=== PATIENT | male | born 1955 | race African-American/Black ===

== ENCOUNTER 2021-06-04 15:37 | Inpatient (IN) | payer MEDICAID, OTHER ==
[~2021-06-04] VITALS: Ht 177.8 cm; Wt 91.2 kg
[2021-06-04] MEDS ORDERED: IOHEXOL-350 100 ML VIAL IV ONE (15:45)
[2021-06-04] MEDS ORDERED: IV NS 0.9% 250 ML IV ONE (15:45)
[2021-06-04] MEDS ORDERED: BISA10SU11 RC (15:59)
[2021-06-04] MEDS ORDERED: ATOR40TA PO (15:59)
[2021-06-04] MEDS ORDERED: SIME80TA15 PO (15:59)
[2021-06-04] MEDS ORDERED: PANT40TA2 PO (15:59)
[2021-06-04] MEDS ORDERED: PROP60CA38 PO (15:59)
[2021-06-04] MEDS ORDERED: DIPH25CA51 PO (15:59)
[2021-06-04] MEDS ORDERED: PHEN100C12 PO (15:59)
[2021-06-04] MEDS ORDERED: KETO10DR3 EACHEYE (15:59)
[2021-06-04] MEDS ORDERED: ONDA4TAB5 PO (15:59)
[2021-06-04] MEDS ORDERED: DOCU-141 PO (15:59)
[2021-06-04] MEDS ORDERED: CHOL100062 PO (15:59)
[2021-06-04] MEDS ORDERED: ASPI-1169 PO (15:59)
[2021-06-04] MEDS ORDERED: LACT1CAP69 PO (15:59)
[2021-06-04] MEDS ORDERED: PRIM250T8 PO (15:59)
[2021-06-04] MEDS ORDERED: ACET-868 PO (15:59)
[2021-06-04 16:17] LABS: BASOPHILS % (AUTO) 0.6 % (0.0-2.0); EOSINOPHILS % (AUTO) 4.7 % (0.0-6.0); HEMATOCRIT 43 % (39-51); HEMOGLOBIN 14.4 g/dL (13.5-17.5); LYMPHOCYTES # (AUTO) 1.1 K/uL (0.8-4.8); LYMPHOCYTES % (AUTO) 17.9 % (20.0-44.0); MEAN CORPUSCULAR HGB CONC 33 g/dl (31.0-36.0); MEAN CORPUSCULAR VOLUME 90 fL (80-96); MONOCYTES # (AUTO) 0.6 K/uL (0.1-1.30); MONOCYTES % (AUTO) 9.9 % (2.0-12.0); NEUTROPHILS # (AUTO) 4.2 K/uL (1.8-8.9); NEUTROPHILS % (AUTO) 66.9 % (43.0-81.0); PLATELET COUNT (AUTO) 216 K/uL (150-450); WHITE BLOOD COUNT (AUTO) 6.2 K/uL (4.3-11.0)
[2021-06-04 16:24] LABS: CALCIUM, SERUM 8.1 mg/dL (8.5-10.1); CARBON DIOXIDE 31 mmol/L (21-32); CHLORIDE 104 mmol/L (98-107); CREATININE 0.8 mg/dL (0.6-1.3); GLUCOSE 104 mg/dL (74-106); POTASSIUM 4.2 mmol/L (3.5-5.1); SODIUM SERUM 139 mmol/L (136-145); UREA NITROGEN, BLOOD 20 mg/dL (7-18)
[2021-06-04 16:46] LABS: CHOLESTEROL 142 mg/dL (<200); HDL CHOLESTEROL 48 mg/dL (40-60); LDL 75 mg/dL (0-99); TRIGLYCERIDES 85 mg/dL (30-150)
[2021-06-04] MEDS ORDERED: SIMETHICONE 80 MG TAB.CHEW PO PRN (17:30)
[2021-06-04] MEDS ORDERED: diphenhydrAMINE HCL 25 MG CAPSULE PO PRN (17:30)
[2021-06-04] MEDS ORDERED: ACETAMINOPHEN 325 MG TABLET PO PRN ×2 (17:30)
[2021-06-04] MEDS ORDERED: Medication Not On Formulary EA (Ondansetron Hcl (Zofran) 4 MG) PO PRN (17:30)
[2021-06-04] MEDS ORDERED: MAGNESIUM HYDROXIDE 30 ML UDC PO PRN (17:30)
[2021-06-04] MEDS ORDERED: BISACODYL SUPP (10 MG) 10 MG/SUPP.RECT SUPP.RECT RC PRN (17:30)
[2021-06-04] MEDS ORDERED: MAG HYDROX/AL HYDROX/SIMETH 30 ML UDC PO PRN (17:30)
[2021-06-04] MEDS ORDERED: Z GUARD REMEDY 2 OZ OINT TP PRN (17:30)
[2021-06-04] MEDS ORDERED: ONDANSETRON HCL/PF 4 MG/2 ML VIAL IVP PRN (17:30)
[2021-06-04] MEDS ORDERED: BLOOD SUGAR DIAGNOSTIC 1 EACH STRIP IN SCH (18:00)
[2021-06-04] MEDS ORDERED: NAPHAZOLINE HCL/PHENIR MAL 15 ML BOTTLE EACHEYE PRN (18:30)
[2021-06-04 20:00] VITALS: BP 132/51
[2021-06-04] MEDS: BLOOD SUGAR DIAGNOSTIC 1 EACH STRIP IN SCH ×2 (20:11→22:55)
[2021-06-04] MEDS: ENOXAPARIN SODIUM 40 MG/0.4 ML DISP.SYRIN SQ SCH (20:12)
[2021-06-04] MEDS: PHENYTOIN EXTENDED RELEASE 100 MG CAPSULE PO SCH (22:55)
[2021-06-04] MEDS: ATORVASTATIN 40 MG TABLET PO SCH (22:55)
[2021-06-05] VITALS: BP 138/79
[2021-06-05 04:00] VITALS: BP 138/79
[2021-06-05] MEDS: IV D5/0.45 NACL 1,000 ML IV PRN ×2 (05:57→21:45)
[2021-06-05 06:59] LABS: BASOPHILS % (AUTO) 0.5 % (0.0-2.0); EOSINOPHILS % (AUTO) 4.1 % (0.0-6.0); HEMATOCRIT 44 % (39-51); LYMPHOCYTES # (AUTO) 1.3 K/uL (0.8-4.8); LYMPHOCYTES % (AUTO) 19.2 % (20.0-44.0); MEAN CORPUSCULAR HGB CONC 34 g/dl (31.0-36.0); MEAN CORPUSCULAR VOLUME 89 fL (80-96); MONOCYTES # (AUTO) 0.7 K/uL (0.1-1.30); MONOCYTES % (AUTO) 10.4 % (2.0-12.0); NEUTROPHILS # (AUTO) 4.3 K/uL (1.8-8.9); NEUTROPHILS % (AUTO) 65.8 % (43.0-81.0); PLATELET COUNT (AUTO) 199 K/uL (150-450); RED BLOOD CELL COUNT(AUTO) 4.94 MIL/uL (4.5-6.0); WHITE BLOOD COUNT (AUTO) 6.5 K/uL (4.3-11.0)
[2021-06-05 07:22] LABS: CALCIUM, SERUM 8.7 mg/dL (8.5-10.1); CREATININE 0.7 mg/dL (0.6-1.3); PHOSPHORUS 3.8 mg/dL (2.5-4.9); POTASSIUM 3.6 mmol/L (3.5-5.1)
[2021-06-05 08:00] VITALS: BP 133/77
[2021-06-05] MEDS: PANTOPRAZOLE 40 MG TABLET.DR PO SCH (08:16)
[2021-06-05] MEDS: CHOLECALCIFEROL 1,000 UNIT TABLET (VIT D3) PO SCH (08:16)
[2021-06-05] MEDS: ASPIRIN 81 MG TAB.CHEW PO SCH (08:16)
[2021-06-05] MEDS: PRIMIDONE 250 MG TABLET PO SCH ×3 (08:16→17:31)
[2021-06-05] MEDS: DOCUSATE SODIUM 100 MG CAPSULE PO SCH ×2 (08:16→17:31)
[2021-06-05] MEDS: BLOOD SUGAR DIAGNOSTIC 1 EACH STRIP IN SCH ×4 (08:17→21:45)
[2021-06-05] MEDS: PROPRANOLOL LA 60 MG CAP.SA.24H PO SCH (08:17)
[2021-06-05 12:00] VITALS: BP 135/75
[2021-06-05 16:00] VITALS: BP 131/68
[2021-06-05 20:00] VITALS: BP 144/73
[2021-06-05] MEDS: ENOXAPARIN SODIUM 40 MG/0.4 ML DISP.SYRIN SQ SCH (21:00)
[2021-06-05] MEDS: ATORVASTATIN 40 MG TABLET PO SCH (21:46)
[2021-06-05] MEDS: PHENYTOIN EXTENDED RELEASE 100 MG CAPSULE PO SCH (21:46)
[2021-06-06] VITALS: BP 123/79
[2021-06-06] MEDS: ENOXAPARIN SODIUM 40 MG/0.4 ML DISP.SYRIN SQ SCH (01:50)
[2021-06-06 04:00] VITALS: BP 137/76
[2021-06-06] MEDS: BLOOD SUGAR DIAGNOSTIC 1 EACH STRIP IN SCH ×2 (07:30→12:07)
[2021-06-06 08:00] VITALS: BP 118/67
[2021-06-06] MEDS: PANTOPRAZOLE 40 MG TABLET.DR PO SCH (08:28)
[2021-06-06] MEDS: ASPIRIN 81 MG TAB.CHEW PO SCH (08:28)
[2021-06-06] MEDS: DOCUSATE SODIUM 100 MG CAPSULE PO SCH (08:28)
[2021-06-06] MEDS: CHOLECALCIFEROL 1,000 UNIT TABLET (VIT D3) PO SCH (08:28)
[2021-06-06] MEDS: PROPRANOLOL LA 60 MG CAP.SA.24H PO SCH (08:28)
[2021-06-06] MEDS: PRIMIDONE 250 MG TABLET PO SCH (08:30)
[2021-06-06] MEDS ORDERED: CLOPIDOGREL BISULFATE 75 MG TABLET PO SCH (09:00)
[2021-06-06] MEDS ORDERED: CLOP75TA15 PO (09:49)
[2021-06-06 12:00] VITALS: BP 132/77
== END 2021-06-06 13:43 | DRG 45 ==
LOC: ER 15:39 → TELE1 17:29
PROVIDERS: ADMIT Internal Medicine; ATTEND Internal Medicine
DX: I63.9 Cerebral infarction, unspecified (principal); G93.49 Other encephalopathy; I11.0 Hypertensive heart disease with heart failure; I50.9 Heart failure, unspecified; E78.5 Hyperlipidemia, unspecified; J44.9 Chronic obstructive pulmonary disease, unspecified; Z86.73 Personal history of transient ischemic attack (TIA), and cerebral infarction without residual deficits; Z20.822 Contact with and (suspected) exposure to COVID-19; R29.706 NIHSS score 6; G40.909 Epilepsy, unspecified, not intractable, without status epilepticus; Z79.82 Long term (current) use of aspirin; Z85.71 Personal history of Hodgkin lymphoma
CPT/HCPCS: 36415; 70450-TC; 70496-TC; 70498-TC; 70551-TC; 71045-TC; 80048-TC; 80061-TC; 82962-TC; 83605-TC; 83735-TC; 84100-TC; 84484-TC; 85025-TC; 85730-TC; 87040-TC; 87081-TC; 92507-TC; 92521; 92526; 92611-TC; 93307-TC; 97112-TC; 97530-TC; G0378; J1650; J3490; J7050; Q9967; U0003

== ENCOUNTER 2022-07-01 13:56 | Inpatient (IN) | payer OTHER ==
[~2022-07-01] VITALS: Ht 182.9 cm; Wt 68.5 kg
[2022-07-01] MEDS: ACETAMINOPHEN 325 MG TABLET PO SCH
[~2022-07-01 13:56] MED LIST: ACET-868 PO; ASPI-1169 PO; ATOR40TA PO; BISA10SU11 RC; CHOL100062 PO; CLOP75TA15 PO; DIPH25CA51 PO; DOCU-141 PO; KETO10DR3 EACHEYE; LACT1CAP69 PO; ONDA4TAB5 PO; PANT40TA2 PO; PHEN100C12 PO; PRIM250T8 PO; PROP60CA38 PO; SIME80TA15 PO
[2022-07-01] MEDS ORDERED: QUET50TA PO (14:13)
[2022-07-01] MEDS ORDERED: MAG30ORA PO (14:13)
[2022-07-01] MEDS ORDERED: FLUO20CA42 PO (14:13)
[2022-07-01] MEDS ORDERED: MAGN400O6 PO (14:13)
[2022-07-01] MEDS ORDERED: ZOLP5TAB8 PO (14:13)
[2022-07-01] MEDS ORDERED: ACET-868 PO (14:13)
[2022-07-01] MEDS ORDERED: MULT-447 PO (14:13)
[2022-07-01] MEDS ORDERED: PRED10TA PO (14:13)
[2022-07-01] MEDS ORDERED: POLY15DR40 EACHEYE (14:13)
[2022-07-01] MEDS ORDERED: PROP20TA7 PO (14:13)
[2022-07-01] MEDS ORDERED: POLY17PO4 PO (14:13)
[2022-07-01] MEDS ORDERED: OLAN10TA3 PO (14:13)
[2022-07-01] MEDS ORDERED: VANCOMYCIN 1 GM in IV D5W 250 ML IV ONE (14:30)
[2022-07-01] MEDS ORDERED: AZTREONAM 2 G in IV NS 0.9% 100 ML IV ONE (14:30)
--- NOTE | 2022-07-01 14:39 | NUR ---
COVID TEST COLLECTED AND SENT
--- NOTE | 2022-07-01 14:52 | NUR ---
MOVE SHEET SUBMITTED.
--- NOTE | 2022-07-01 15:00 | NUR ---
ATTEMPTED TO INSERT TEAGUE CATHETER, NO URINE OUTPUT, BLOOD OUTPUT NOTED, WITHDREW CATHETER
[2022-07-01 15:24] LABS: BASOPHILS % (AUTO) 0.3 % (0.0-2.0); EOSINOPHILS % (AUTO) 0.3 % (0.0-6.0); HEMATOCRIT 41 % (39-51); HEMOGLOBIN 13.4 g/dL (13.5-17.5); LYMPHOCYTES # (AUTO) 0.9 K/uL (0.8-4.8); LYMPHOCYTES % (AUTO) 7.7 % (20.0-44.0); MEAN CORPUSCULAR HGB CONC 32 g/dl (31.0-36.0); MEAN CORPUSCULAR VOLUME 90 fL (80-96); NEUTROPHILS % (AUTO) 83.7 % (43.0-81.0); PLATELET COUNT (AUTO) 321 K/uL (150-450); WHITE BLOOD COUNT (AUTO) 11.9 K/uL (4.3-11.0)
[2022-07-01] MEDS ORDERED: ACETAMINOPHEN 650 MG/SUPP.RECT RC ONE ×2 (15:30→23:55)
[2022-07-01] MEDS ORDERED: IV NS 0.9% 2,000 ML IV ONE (15:30)
[2022-07-01 15:41] LABS: CALCIUM, SERUM 9.3 mg/dL (8.5-10.1); CARBON DIOXIDE 31 mmol/L (21-32); CHLORIDE 117 mmol/L (98-107); CREATININE 0.9 mg/dL (0.6-1.3); GLUCOSE 141 mg/dL (74-106); POTASSIUM 3.6 mmol/L (3.5-5.1); SODIUM SERUM 155 mmol/L (136-145); UREA NITROGEN, BLOOD 34 mg/dL (7-18)
[2022-07-01 15:53] LABS: ALANINE AMINOTRANSFERASE 104 U/L (12-78); ALBUMIN 2.4 g/dL (3.4-5.0); ALKALINE PHOSPHATASE 143 U/L (46-116); ASPARTATE AMINOTRANSFERASE 104 U/L (15-37); BILIRUBIN,TOTAL 1.3 mg/dL (0.2-1.0); TOTAL PROTEIN, SERUM 8.1 g/dL (6.4-8.2)
[2022-07-01] MEDS ORDERED: Z GUARD REMEDY 4 OZ OINT TP PRN (17:30)
[2022-07-01] MEDS ORDERED: ACETAMINOPHEN 325 MG TABLET PO PRN ×2 (17:30)
[2022-07-01] MEDS ORDERED: MAG HYDROX/AL HYDROX/SIMETH 30 ML UDC PO PRN ×2 (17:30)
[2022-07-01] MEDS ORDERED: BISACODYL SUPP (10 MG) 10 MG/SUPP.RECT SUPP.RECT RC PRN (17:30)
[2022-07-01] MEDS ORDERED: ONDANSETRON HCL/PF 4 MG/2 ML VIAL IVP PRN (17:30)
[2022-07-01] MEDS ORDERED: CEFEPIME 1 GM in IV D5W 50 ML IV SCH (17:30)
[2022-07-01] MEDS ORDERED: ZOLPIDEM TARTRATE 5 MG TABLET PO PRN (17:30)
[2022-07-01] MEDS ORDERED: MAGNESIUM HYDROXIDE 30 ML UDC PO PRN ×2 (17:30)
[2022-07-01] MEDS ORDERED: IV NS 0.9% 500 ML IV ONE (19:00)
[2022-07-01] MEDS ORDERED: LIDOCAINE 2% JEL UROJET 10 ML MM ONE (19:18)
--- NOTE | 2022-07-01 19:30 | NUR ---
PATIENT PLACED ON 3.5 LPM O2 VIA NASAL CANNULA UPON ADMISSION AND KEPT AT SAME RATE FOR DURATION OF SHIFT
--- NOTE | 2022-07-01 20:20 | NUR ---
MRSA SWAB COLLECTED AND BELONGINGS LIST DONE
[2022-07-01] MEDS: POLYVINYL ALCOHOL 15 ML BOTTLE EACHEYE SCH (21:00)
[2022-07-01] MEDS ORDERED: ZOLPIDEM TARTRATE 5 MG TABLET PO SCH (22:00)
[2022-07-01] MEDS: PHENYTOIN EXTENDED RELEASE 100 MG CAPSULE PO SCH (22:00)
[2022-07-01] MEDS: ATORVASTATIN 40 MG TABLET PO SCH (22:00)
[2022-07-01] MEDS: IV 1/2NS 1000 ML 1,000 ML IV PRN (22:15)
[2022-07-02] MEDS ORDERED: PHENYTOIN EXTENDED RELEASE 100 MG CAPSULE PO ONE (00:06)
[2022-07-02] MEDS ORDERED: ATORVASTATIN 40 MG TABLET ONE (00:06)
[2022-07-02] MEDS ORDERED: POLYVINYL ALCOHOL 15 ML BOTTLE ONE (00:06)
[2022-07-02] MEDS ORDERED: VANCOMYCIN 500 MG VIAL ONE (03:41)
[2022-07-02] MEDS ORDERED: VANCOMYCIN 1 GM VIAL ONE (03:42)
[2022-07-02] MEDS: VANCOMYCIN 1.25 GM in IV D5W 250 ML IV SCH ×2 (03:51→14:53)
[2022-07-02 03:53] LABS: BASOPHILS % (AUTO) 0.3 % (0.0-2.0); EOSINOPHILS % (AUTO) 1.4 % (0.0-6.0); HEMATOCRIT 39 % (39-51); HEMOGLOBIN 12.6 g/dL (13.5-17.5); LYMPHOCYTES # (AUTO) 0.8 K/uL (0.8-4.8); LYMPHOCYTES % (AUTO) 8.1 % (20.0-44.0); MEAN CORPUSCULAR HGB CONC 32 g/dl (31.0-36.0); MEAN CORPUSCULAR VOLUME 91 fL (80-96); MONOCYTES # (AUTO) 0.8 K/uL (0.1-1.30); MONOCYTES % (AUTO) 8.7 % (2.0-12.0); NEUTROPHILS # (AUTO) 7.9 K/uL (1.8-8.9); NEUTROPHILS % (AUTO) 81.5 % (43.0-81.0); PLATELET COUNT (AUTO) 250 K/uL (150-450); WHITE BLOOD COUNT (AUTO) 9.7 K/uL (4.3-11.0)
[2022-07-02 04:10] LABS: CALCIUM, SERUM 8.2 mg/dL (8.5-10.1); CREATININE 0.7 mg/dL (0.6-1.3); MAGNESIUM 2.3 mg/dL (1.8-2.4); PHOSPHORUS 2.5 mg/dL (2.5-4.9); POTASSIUM 3.3 mmol/L (3.5-5.1)
[2022-07-02] MEDS ORDERED: PANTOPRAZOLE 40 MG TABLET.DR PO ONE (07:36)
[2022-07-02] MEDS: PANTOPRAZOLE 40 MG TABLET.DR PO SCH (08:05)
--- NOTE | 2022-07-02 08:05 | NUR ---
GOT BED 315-2
--- NOTE | 2022-07-02 08:28 | NUR ---
report given to Linda MACHUCA to continue care.
[2022-07-02] MEDS: QUETIAPINE FUMARATE 25 MG TABLET PO SCH ×2 (09:00→17:00)
[2022-07-02] MEDS: FLUOXETINE HCL 20 MG CAPSULE PO SCH (09:00)
[2022-07-02] MEDS: MULTIVIT W/MINERALS 1 TAB TABLET PO SCH (09:00)
[2022-07-02] MEDS: CHOLECALCIFEROL 1,000 UNIT TABLET (VIT D3) PO SCH (09:00)
[2022-07-02] MEDS: POLYVINYL ALCOHOL 15 ML BOTTLE EACHEYE SCH ×4 (09:00→21:11)
[2022-07-02] MEDS: DOCUSATE SODIUM 100 MG CAPSULE PO SCH ×2 (09:00→17:00)
[2022-07-02] MEDS: PROPRANOLOL HCL 10 MG TABLET PO SCH ×2 (09:00→17:00)
[2022-07-02] MEDS: POLYETHYLENE GLYCOL 3350 17 GM POWD.PACK PO SCH (09:00)
[2022-07-02] MEDS: PRIMIDONE 250 MG TABLET PO SCH ×3 (09:00→17:00)
[2022-07-02] MEDS: ASPIRIN 81 MG TAB.CHEW PO SCH (09:00)
[2022-07-02] MEDS: OLANZAPINE 10 MG TABLET PO SCH ×2 (09:00→17:00)
[2022-07-02] MEDS: LACTOBACILLUS RHAMNOSUS GG 1 EACH CAP.SPRINK PO SCH (09:00)
[2022-07-02 09:30] VITALS: BP 120/69
[2022-07-02 09:45] VITALS: BP 128/69
--- NOTE | 2022-07-02 09:45 | NUR ---
PROCESS STRIPPER OPENING NOTES RECEIVED PATIENT ENDORSED BY SVEN PIRES VIA GABRIEL. PATIENT IS AWAKE AND A/O X1-2, NONVERBAL. ABLE TO FOLLOW COMMANDS. ON O2 AT 2LPM VIA NASAL CANNULA TOLERATING WELL. NO SOB NOTED. ON TELE MONITOR CURRENTLY READING SINUS TACHYCARDIA AT 118BPM. WITH IV ACCESS AT RIGHT AC G18, INTACT AND PATENT. MOUTH CARE DONE. WITH SKIN ISSUES AND PHOTOS PLACED ON CHART. SAFETY MEASURES IN PLACED. CALL LIGHT WITHIN REACH. BED ON LOWEST LOCKED POSITION, SIDE RAILS UP X2. WILL CONTINUE TO MONITOR.
[2022-07-02] MEDS: IV 1/2NS 1000 ML 1,000 ML IV PRN ×2 (09:52→23:07)
[2022-07-02] MEDS: ENOXAPARIN SODIUM 40 MG/0.4 ML DISP.SYRIN SQ SCH (11:34)
[2022-07-02] MEDS: POTASSIUM CL. PREMIX PERIPHER. 50 ML IV SCH ×2 (11:34→16:09)
[2022-07-02 12:00] VITALS: BP 148/87
[2022-07-02] MEDS: IPRATROPIUM NEB FS 0.5 MG/2.5 ML AMPUL.NEB NEB SCH ×4 (12:15→23:14)
[2022-07-02] MEDS: ACETAMINOPHEN 325 MG TABLET PO SCH ×2 (13:00→21:00)
--- NOTE | 2022-07-02 13:00 | NUR ---
RN NOTE MOUTH CARE DONE TO IMPROVE PATIENT'S APPETITE. WILL DO BEDSIDE NURSING SWALLOW EVAL.
--- NOTE | 2022-07-02 13:00 | NUR ---
RN NOTE TRIED BEDSIDE NURSING SWALLOW EVAL BY TRYING TO GIVE PO MEDICATIONS WITH APPLE SAUCE BUT PATIENT IS UNABLE TO SWALLOW.
[2022-07-02] MEDS: CEFEPIME 2 GM in IV D5W 100 ML IV SCH ×2 (13:32→21:09)
[2022-07-02 16:00] VITALS: BP 174/84
--- NOTE | 2022-07-02 18:43 | NUR ---
PHONOGRAPH MECHANIC CLOSING NOTES PATIENT ON BED RESTING AND A/O X1-2, NONVERBAL. ABLE TO FOLLOW COMMANDS. ON O2 AT 2LPM VIA NASAL CANNULA TOLERATING WELL. NO SOB NOTED. ON TELE MONITOR CURRENTLY READING SINUS TACHYCARDIA AT 123BPM. WITH IV ACCESS AT RIGHT AC G18, INTACT AND PATENT. DUE MEDS GIVEN. PATIENT IS URINATING. CHUCKS ALL WET FROM URINE. FOR GENITO-URINARY CONSULT BY DR. MENDIOLA. TEAGUE CATHETER AND URINARY TRAY IN THE NURSE'S STATION IN CASE TEAGUE CATHETER INSERTION IS NEEDED. SAFETY MEASURES IN PLACED. CALL LIGHT WITHIN REACH. BED ON LOWEST LOCKED POSITION, SIDE RAILS UP X2. WILL ENDORSE TO NEXT SHIFT FOR JUNE.
--- NOTE | 2022-07-02 19:15 | NUR ---
RN OPENING NOTE RECEIVED PT IN BED AWAKE, NON-VERBAL BUT DOES MAKE NOISES. NO SIGNS OF RESPIRATORY DISTRESS OR SOB NOTED. ON 4L NC SATURATING WELL. TELE MONITOR READING ST 120. PT IS CURRENTLY NPO, AWAITING A SWALLOW EVAL. DOCTOR YAMILKA NOTIFIED TO SEE IF HE WANTED TO CHANGE ANY OF HIS SCHEDULED MED ROUTES FOR TONIGHT. WAITING FOR RESPONSE. IV IN RAC 18G INFUSING 1/2NS AT 125ML/HR. SAFETY CHECKS IN PLACE: BED LOCKED, BED IN LOWEST POSITION, CALL LIGHT WITHIN REACH, SIDE RAILS UP X2. WILL CONT PLAN OF CARE.
--- NOTE | 2022-07-02 19:30 | NUR ---
RN NOTE UROLOGY CONSULT CAME TO SEE PT. MARLENA HUNG INSERTED A TEAGUE CATH. COLLECTED URINE SAMPLE AND NOTIFIED LAB TO COME AND PICK IT UP.
[2022-07-02 20:00] VITALS: BP 103/62
--- NOTE | 2022-07-02 21:38 | NUR ---
RN NOTE DR PRATHER NOTIFIED OF SCHEDULED MEDS BEING PO WHEN PT IS NPO UNTIL SWALLOW EVAL IS DONE. ASKED DOC IF TYLENOL CAN BE CONVERTED TO SUPPOSITORY SINCE PTS TEMP IS 99.2. WAITING FOR RESPONSE. WILL CONT PLAN OF CARE.
[2022-07-02] MEDS ORDERED: phenytoin SODIUM IV 500 MG in IV NS 0.9% 50 ML IV ONE (22:00)
[2022-07-02] MEDS: ATORVASTATIN 40 MG TABLET PO SCH (22:00)
[2022-07-02] MEDS: PHENYTOIN EXTENDED RELEASE 100 MG CAPSULE PO SCH (22:00)
[2022-07-02] MEDS: ACETAMINOPHEN 650 MG/SUPP.RECT RC PRN (22:24)
[2022-07-02] MEDS ORDERED: phenytoin SODIUM IV 250 MG/5 ML VIAL IV ONE (22:37)
--- NOTE | 2022-07-02 23:16 | NUR ---
RN NOTE PT SKIN VERY WARM, COOLING MEASURES IN PLACE. COOL WASHCLOTHS ON HEAD, ARMS, AND LEGS. TYLENOL SUPPOSITORY GIVEN PER DR PRATHER.
[2022-07-02 23:58] VITALS: BP 94/59
[2022-07-03] VITALS: BP 94/59
[2022-07-03 00:33] LABS: BILIRUBIN,URINE SMALL (NEGATIVE); COLOR,URINE YELLOW (YELLOW); LEUKOCYTE ESTERASE ,URINE NEGATIVE (NEGATIVE); NITRITE, URINE NEGATIVE (NEGATIVE); PH,URINE 5.5 (5.0-8.0); PROTEIN,URINE TRACE mg/dl (NEGATIVE); UGLUCOSE NEGATIVE (NEGATIVE); UROBILINOGEN,URINE 0.2 EU/dL (0.2)
[2022-07-03 01:01] LABS: BACTERIA,URINE Many /HPF (None Seen); SQUAMOUS EPITHELIAL CELL,UR Rare /HPF (None Seen); WBC,URINE 0-2 /HPF (0-3)
[2022-07-03] MEDS: VANCOMYCIN 1.25 GM in IV D5W 250 ML IV SCH ×2 (02:55→16:57)
[2022-07-03 04:00] VITALS: BP 122/79
[2022-07-03] MEDS: IPRATROPIUM NEB FS 0.5 MG/2.5 ML AMPUL.NEB NEB SCH ×6 (04:12→23:24)
[2022-07-03] MEDS: CEFEPIME 2 GM in IV D5W 100 ML IV SCH ×3 (04:48→21:11)
--- NOTE | 2022-07-03 06:35 | NUR ---
RN CLOSING NOTE PT IN BED AWAKE, NONVERBAL. EASILY WOKEN UP TO NAME AND LIGHT TOUCH. NO SIGNS OF RESPIRATORY DISTRESS OR SOB NOTED ON 4L NC TOLERATING WELL. TELE READING ST AT 116 WITH PVC. PT KEPT NPO ALL SHIFT, SWALLOW EVAL ORDERED FOR THE MORNING SHIFT. RAC 18G INTACT AND INFUSING NS @125ML/HR. WOUND CARE CONSULT FOR THE MORNING. SAFETY CHECKS IN PLACE: BED LOCKED, BED IN LOWEST POSITION, SIDE RIALS X2, CALL LIGHT WITHIN REACH. WILL ENDORSE TO DAY SHIFT NURSE FOR JUNE.
[2022-07-03 06:40] LABS: BASOPHILS % (AUTO) 0.3 % (0.0-2.0); EOSINOPHILS % (AUTO) 4.1 % (0.0-6.0); HEMATOCRIT 36 % (39-51); HEMOGLOBIN 11.6 g/dL (13.5-17.5); LYMPHOCYTES # (AUTO) 0.6 K/uL (0.8-4.8); LYMPHOCYTES % (AUTO) 7.2 % (20.0-44.0); MEAN CORPUSCULAR HGB CONC 33 g/dl (31.0-36.0); MEAN CORPUSCULAR VOLUME 90 fL (80-96); MONOCYTES # (AUTO) 0.7 K/uL (0.1-1.30); MONOCYTES % (AUTO) 8.4 % (2.0-12.0); PLATELET COUNT (AUTO) 238 K/uL (150-450); RED BLOOD CELL COUNT(AUTO) 3.94 MIL/uL (4.5-6.0); WHITE BLOOD COUNT (AUTO) 8.8 K/uL (4.3-11.0)
[2022-07-03 06:57] LABS: CALCIUM, SERUM 8.3 mg/dL (8.5-10.1); CREATININE 0.7 mg/dL (0.6-1.3); POTASSIUM 2.9 mmol/L (3.5-5.1)
[2022-07-03] MEDS: PANTOPRAZOLE 40 MG TABLET.DR PO SCH (07:30)
[2022-07-03 08:00] VITALS: BP 129/76
[2022-07-03] MEDS: PRIMIDONE 250 MG TABLET PO SCH ×3 (09:00→17:18)
[2022-07-03] MEDS: CHOLECALCIFEROL 1,000 UNIT TABLET (VIT D3) PO SCH (09:00)
[2022-07-03] MEDS: PROPRANOLOL HCL 10 MG TABLET PO SCH ×2 (09:00→17:00)
[2022-07-03] MEDS: OLANZAPINE 10 MG TABLET PO SCH ×2 (09:00→17:00)
[2022-07-03] MEDS: FLUOXETINE HCL 20 MG CAPSULE PO SCH (09:00)
[2022-07-03] MEDS: QUETIAPINE FUMARATE 25 MG TABLET PO SCH ×2 (09:00→17:00)
[2022-07-03] MEDS: POLYETHYLENE GLYCOL 3350 17 GM POWD.PACK PO SCH (09:00)
[2022-07-03] MEDS: ASPIRIN 81 MG TAB.CHEW PO SCH (09:00)
[2022-07-03] MEDS: MULTIVIT W/MINERALS 1 TAB TABLET PO SCH (09:00)
[2022-07-03] MEDS: LACTOBACILLUS RHAMNOSUS GG 1 EACH CAP.SPRINK PO SCH (09:00)
[2022-07-03] MEDS: DOCUSATE SODIUM 100 MG CAPSULE PO SCH ×2 (09:00→17:00)
--- NOTE | 2022-07-03 09:00 | NUR ---
RN NOTE PATIENT IS NPO. ALL PO MEDS ARE HELD.
--- NOTE | 2022-07-03 09:29 | NUR ---
WOUND CARE CONSULT: PT PRESENTS WITH SACRAL DEEP TISSUE INJURY WHICH IS INTACT WITH SURROUNDING SCARRING, WELL LEFT LATERAL FOOT INTACT DEEP TISSUE INJURY/BLISTER, PRESENT ON ADMISSION. RECOMMEND DPM CONSULT. CALLED TO DR KIRK. RECOMMENDATIONS MADE FOR SKIN PROTECTION. DISCUSSED WITH NURSING STAFF. HO PINA NOTED. IN AGREEMENT WITH [facility].
[2022-07-03] MEDS: ENOXAPARIN SODIUM 40 MG/0.4 ML DISP.SYRIN SQ SCH (09:52)
[2022-07-03] MEDS: POLYVINYL ALCOHOL 15 ML BOTTLE EACHEYE SCH ×4 (09:52→21:12)
[2022-07-03] MEDS: IV 1/2NS 1000 ML 1,000 ML IV PRN (11:47)
[2022-07-03] MEDS: POTASSIUM CL. PREMIX PERIPHER. 50 ML IV SCH ×7 (11:47→21:54)
[2022-07-03] MEDS: ACETAMINOPHEN 325 MG TABLET PO SCH ×2 (13:00→21:00)
[2022-07-03 16:00] VITALS: BP 131/80
--- NOTE | 2022-07-03 19:00 | NUR ---
RN CLOSING NOTE LEFT PATIENT RESTING IN BED A/Ox4, ABLE TO MAKE NEEDS KNOWN. ON ROOM AIR, NO RESPIRATORY DISTRESS OR SOB OBSERVED. IV ACCESS TO RIGHT FA 18G INTACT AND PATENT. NO C/O OF PAIN OR DISCOMFORT AT THIS TIME. ALL SCHEDULED MEDICATIONS HELD DUE TO NPO STATUS. SAFETY MEASURES IN PLACE: BED LOCKED AND IN LOW POSITION, SIDE RAILS UP x2, CALL LIGHT WITHIN REACH, HEAD OF THE BED ELEVATED 40 DEGREE ORDERED.
--- NOTE | 2022-07-03 19:00 | NUR ---
RN CLOSING NOTE PT IN BED ASLEEP, NONVERBAL. EASILY WOKEN UP TO NAME AND LIGHT TOUCH. NO SIGNS OF RESPIRATORY DISTRESS OR SOB NOTED ON 4L NC TOLERATING WELL. TELE READING ST AT 114 WITH PVC. PT KEPT NPO ALL SHIFT, FAILED SWALLOW EVAL AND DR RYAN WILL TALL TO THE FAMILY REGARDING THE GTUBE. RAC 18G INFILTRATED AND WAS REMOVED AND 2 NEW IV SITE INITIATED TODAY AROUND 1500 LEFT UPPER ARM 20 G AND LEFT RIGHT HAND 22 G IV SITE FLUSHING AND INTACT INFUSING NS @125ML/HR. SAFETY CHECKS IN PLACE: BED LOCKED, BED IN LOWEST POSITION, SIDE RIALS X2, CALL LIGHT WITHIN REACH. WILL ENDORSE TO STONE DECORATOR NURSE FOR JUNE.
--- NOTE | 2022-07-03 19:45 | NUR ---
PROJECT MANAGEMENT PROFESSOR NOTES RECEIVED LAYING ON BED,ON LEFT LATERAL POSITION,WITH ON GOING BREATHING TREATMENT,POTASSIUM IV INFUSING WELL ON LEFT UPPER ARM SALINE LOCK.TEAGUE CATH IN PLACE DRAINING TEA COLORED URINE.RIGHT SIDED WEAKNESS NOTED,RESIDUAL FROM CVA.NPO STATUS, POSSIBLE GT PLACEMENT,WILL CONTINUE TO MONITOR STATUS.
[2022-07-03 20:00] VITALS: BP 120/74
[2022-07-03] MEDS: ACETAMINOPHEN 650 MG/SUPP.RECT RC PRN (21:14)
--- NOTE | 2022-07-03 21:30 | NUR ---
MOVIE SHOT CAMERAMAN NOTES POTASSIUM 60- MEQ/300L/ 6 BAG COMPLETED,WITH NEW BY SIMONA FOR ANOTHER 150ML/30 MEQ TO BE GIVEN,VERIFIED ORDER WITH HOSPITALIST KIANA DIAZ AND HE SAID OKAY TO GIVE, NOTED AND CARRIED OUT.
[2022-07-03] MEDS: ATORVASTATIN 40 MG TABLET PO SCH (22:00)
[2022-07-03] MEDS: PHENYTOIN EXTENDED RELEASE 100 MG CAPSULE PO SCH (22:00)
[2022-07-04] VITALS: BP 119/73
[2022-07-04] MEDS ORDERED: POTASSIUM CL. PREMIX PERIPHER. 50 ML ONE ×2 (00:01→01:35)
[2022-07-04] MEDS: POTASSIUM CL. PREMIX PERIPHER. 50 ML IV SCH ×2 (00:05→01:37)
[2022-07-04] MEDS: VANCOMYCIN 1.25 GM in IV D5W 250 ML IV SCH ×2 (03:05→14:07)
[2022-07-04] MEDS: IPRATROPIUM NEB FS 0.5 MG/2.5 ML AMPUL.NEB NEB SCH ×6 (04:20→23:37)
[2022-07-04] MEDS: CEFEPIME 2 GM in IV D5W 100 ML IV SCH (05:07)
--- NOTE | 2022-07-04 06:38 | NUR ---
DIRECTOR BUSINESS INTELLIGENCE NOTES ST-123 ON TELE MONITOR.NO SIGNIFICANT CHANGE IN STATUS.ALL DUE MEDS ADMINISTERED,REPOSITIONED PER PROTOCOL,KEPT NPO ORDERED.IN NO ACUTE DISTRESS.
--- NOTE | 2022-07-04 07:05 | NUR ---
CHIEF NURSE ANESTHETIST OPENING NOTES RECEIVED PATIENT SLEEPING IN BED, 4L VIA NC, NO S/S OF RESPIRATORY DISTRESS. A/Ox2, OPEN EYES NON-VERBAL. PAIN OR DISCOMFORT NOTED. IV ACCESS FÁTIMA #20 G RUNNING 1/2 NS @125 ML/HR. INTACT AND PATENT. INCONTINENT, HAS FC, DRAINING TEA COLORED URINE. BEDBOUND. SKIN ISSUES L LATERAL FOOT BLISTER AND SACRAL DTI. PATIENT CURRENTLY NPO, WILL CONTINUE TO MONITOR FOR ASPIRATION RISKS. SAFETY MEASURES IN PLACE: BED LOCKED AND IN LOWEST POSITION, SIDE RAILS UP x2, CALL LIGHT WITHIN REACH, HOB ELEVATED. WILL CONTINUE TO MONITOR. Addendum: 07/04/22 at 1306 by SABA SPIVEY RN ADDENDUM: 10/15 NS @75 ML/HR NOT 125 ML/HR
[2022-07-04] MEDS: PANTOPRAZOLE 40 MG TABLET.DR PO SCH (07:30)
[2022-07-04 08:01] LABS: BASOPHILS % (AUTO) 0.2 % (0.0-2.0); EOSINOPHILS % (AUTO) 3.6 % (0.0-6.0); HEMATOCRIT 37 % (39-51); HEMOGLOBIN 12.2 g/dL (13.5-17.5); LYMPHOCYTES # (AUTO) 0.6 K/uL (0.8-4.8); LYMPHOCYTES % (AUTO) 6.7 % (20.0-44.0); MEAN CORPUSCULAR HGB CONC 33 g/dl (31.0-36.0); MEAN CORPUSCULAR VOLUME 90 fL (80-96); MONOCYTES # (AUTO) 0.7 K/uL (0.1-1.30); MONOCYTES % (AUTO) 8.8 % (2.0-12.0); NEUTROPHILS # (AUTO) 6.7 K/uL (1.8-8.9); NEUTROPHILS % (AUTO) 80.7 % (43.0-81.0); PLATELET COUNT (AUTO) 255 K/uL (150-450); RED BLOOD CELL COUNT(AUTO) 4.14 MIL/uL (4.5-6.0); WHITE BLOOD COUNT (AUTO) 8.3 K/uL (4.3-11.0)
[2022-07-04 08:06] LABS: CALCIUM, SERUM 8.3 mg/dL (8.5-10.1); CREATININE 0.7 mg/dL (0.6-1.3); POTASSIUM 3.5 mmol/L (3.5-5.1)
[2022-07-04] MEDS: POLYETHYLENE GLYCOL 3350 17 GM POWD.PACK PO SCH (09:00)
[2022-07-04] MEDS: CHOLECALCIFEROL 1,000 UNIT TABLET (VIT D3) PO SCH (09:00)
[2022-07-04] MEDS: FLUOXETINE HCL 20 MG CAPSULE PO SCH (09:00)
[2022-07-04] MEDS: MULTIVIT W/MINERALS 1 TAB TABLET PO SCH (09:00)
[2022-07-04] MEDS: LACTOBACILLUS RHAMNOSUS GG 1 EACH CAP.SPRINK PO SCH (09:00)
[2022-07-04] MEDS: QUETIAPINE FUMARATE 25 MG TABLET PO SCH ×2 (09:00→17:00)
[2022-07-04] MEDS: ASPIRIN 81 MG TAB.CHEW PO SCH (09:00)
[2022-07-04] MEDS: DOCUSATE SODIUM 100 MG CAPSULE PO SCH ×2 (09:00→17:00)
[2022-07-04] MEDS: ENOXAPARIN SODIUM 40 MG/0.4 ML DISP.SYRIN SQ SCH (09:00)
[2022-07-04] MEDS: PROPRANOLOL HCL 10 MG TABLET PO SCH ×2 (09:00→17:00)
[2022-07-04] MEDS: OLANZAPINE 10 MG TABLET PO SCH ×2 (09:00→17:00)
[2022-07-04] MEDS: PRIMIDONE 250 MG TABLET PO SCH ×3 (09:00→17:00)
[2022-07-04] MEDS: POLYVINYL ALCOHOL 15 ML BOTTLE EACHEYE SCH ×4 (09:55→20:47)
[2022-07-04 11:31] VITALS: BP 117/50
[2022-07-04] MEDS: ACETAMINOPHEN 325 MG TABLET PO SCH ×2 (13:00→20:46)
[2022-07-04] MEDS: IV 1/2NS 1000 ML 1,000 ML IV PRN (13:04)
[2022-07-04] MEDS ORDERED: DEXAMETHASONE SOD PHOSPHATE 10 MG/ML VIAL ONE (19:10)
[2022-07-04] MEDS ORDERED: CLINDAMYCIN 900 MG/6 ML VIAL ONE (19:10)
--- NOTE | 2022-07-04 19:28 | NUR ---
PILLOWCASE SEWER OPENING NOTES PATIENT SLEEPING IN BED, STABLE ON 4L VIA NC, NO S/S OF RESPIRATORY DISTRESS. A/Ox2, OPEN EYES NON-VERBAL. PAIN OR DISCOMFORT NOTED. IV ACCESS FÁTIMA #20 G RUNNING 1/2 NS @75 ML/HR. INTACT AND PATENT. INCONTINENT, HAS FC, DRAINING TEA COLORED URINE 1500 OUTPUT. BEDBOUND. SKIN ISSUES L LATERAL FOOT BLISTER AND SACRAL DTI. PATIENT CURRENTLY NPO, WILL CONTINUE TO MONITOR FOR ASPIRATION RISKS. SAFETY MEASURES MAINTAINED: BED LOCKED AND IN LOWEST POSITION, SIDE RAILS UP x2, CALL LIGHT WITHIN REACH, HOB ELEVATED. WILL ENDORSE TO NEXT SHIFT ANY JUNE. Addendum: 07/04/22 at 1929 by SABA SPIVEY RN CLOSING NOTE*
[2022-07-04 20:00] VITALS: BP 132/84
[2022-07-04] MEDS: CEFEPIME 1 GM in IV D5W 50 ML IV SCH (20:51)
[2022-07-04] MEDS: PHENYTOIN EXTENDED RELEASE 100 MG CAPSULE PO SCH (21:31)
[2022-07-04] MEDS: ATORVASTATIN 40 MG TABLET PO SCH (21:32)
[2022-07-05] VITALS (7 sets, daily range): BP systolic 109–145; BP diastolic 66–78
[2022-07-05] MEDS: IPRATROPIUM NEB FS 0.5 MG/2.5 ML AMPUL.NEB NEB SCH ×6 (03:30→23:44)
[2022-07-05] MEDS: VANCOMYCIN 1.25 GM in IV D5W 250 ML IV SCH ×2 (04:16→14:57)
--- NOTE | 2022-07-05 06:39 | NUR ---
PLATE WORKER CLOSING NOTES PATIENT SLEEPING IN BED, STABLE ON 2L VIA NC, NO S/S OF RESPIRATORY DISTRESS. A/Ox1, OPEN EYES NON-VERBAL. PAIN OR DISCOMFORT NOTED. IV ACCESS FÁTIMA #20 G RUNNING 1/2 NS @75 ML/HR. INTACT AND PATENT. INCONTINENT, HAS FC, DRAINING TEA COLORED URINE 500 OUTPUT. BEDBOUND. PATIENT CURRENTLY NPO. SAFETY MEASURES MAINTAINED: BED LOCKED AND IN LOWEST POSITION, SIDE RAILS UP x2, CALL LIGHT WITHIN REACH, HOB ELEVATED.
[2022-07-05 07:16] LABS: BASOPHILS % (AUTO) 0.4 % (0.0-2.0); EOSINOPHILS % (AUTO) 5.7 % (0.0-6.0); HEMATOCRIT 33 % (39-51); LYMPHOCYTES # (AUTO) 0.8 K/uL (0.8-4.8); LYMPHOCYTES % (AUTO) 9.9 % (20.0-44.0); MEAN CORPUSCULAR HGB CONC 33 g/dl (31.0-36.0); MEAN CORPUSCULAR VOLUME 89 fL (80-96); MONOCYTES # (AUTO) 0.7 K/uL (0.1-1.30); MONOCYTES % (AUTO) 8.6 % (2.0-12.0); NEUTROPHILS # (AUTO) 5.9 K/uL (1.8-8.9); NEUTROPHILS % (AUTO) 75.4 % (43.0-81.0); PLATELET COUNT (AUTO) 277 K/uL (150-450); RED BLOOD CELL COUNT(AUTO) 3.71 MIL/uL (4.5-6.0); WHITE BLOOD COUNT (AUTO) 7.8 K/uL (4.3-11.0)
[2022-07-05] MEDS: PANTOPRAZOLE 40 MG TABLET.DR PO SCH (07:30)
--- NOTE | 2022-07-05 07:30 | NUR ---
VACUUM TECHNICIAN OPENING NOTES RECEIVED PATIENT ON BED AWAKE, NONVERBAL AND A/O X1-2. ON O2 AT 2LPM VIA NASAL CANNULA TOLERATING WELL. NO SOB NOTED. NOT IN DISTRESS. WITH IV ACCESS AT THE LEFT UPPER ARM G20 WITH 1/2NS AT 75ML/HR INFUSING WELL. ON TELE MONITOR CURRENTLY READING SINUS TACHYCARDIA AT 110BPM. ON NPO FOR PATIENT FAILED SWALLOW EVAL AND AWAITING FOR PEG TUBE PLACEMENT. SAFETY MEASURES IN PLACED. CALL LIGHT WITHIN REACH. BED ON LOWEST LOCKED POSITION, SIDE RAILS UP X2. WILL CONTINUE TO MONITOR.
[2022-07-05 07:45] LABS: CALCIUM, SERUM 8.3 mg/dL (8.5-10.1); CREATININE 0.6 mg/dL (0.6-1.3); POTASSIUM 3.2 mmol/L (3.5-5.1)
[2022-07-05] MEDS: MULTIVIT W/MINERALS 1 TAB TABLET PO SCH (09:00)
[2022-07-05] MEDS: LACTOBACILLUS RHAMNOSUS GG 1 EACH CAP.SPRINK PO SCH (09:00)
[2022-07-05] MEDS: CHOLECALCIFEROL 1,000 UNIT TABLET (VIT D3) PO SCH (09:00)
[2022-07-05] MEDS: OLANZAPINE 10 MG TABLET PO SCH ×2 (09:00→17:00)
[2022-07-05] MEDS: ASPIRIN 81 MG TAB.CHEW PO SCH (09:00)
[2022-07-05] MEDS: PROPRANOLOL HCL 10 MG TABLET PO SCH ×2 (09:00→17:00)
[2022-07-05] MEDS: PRIMIDONE 250 MG TABLET PO SCH ×3 (09:00→17:00)
[2022-07-05] MEDS: POLYETHYLENE GLYCOL 3350 17 GM POWD.PACK PO SCH (09:00)
[2022-07-05] MEDS: DOCUSATE SODIUM 100 MG CAPSULE PO SCH ×2 (09:00→17:00)
[2022-07-05] MEDS: FLUOXETINE HCL 20 MG CAPSULE PO SCH (09:00)
[2022-07-05] MEDS: POLYVINYL ALCOHOL 15 ML BOTTLE EACHEYE SCH ×4 (09:00→20:50)
[2022-07-05] MEDS: QUETIAPINE FUMARATE 25 MG TABLET PO SCH ×2 (09:00→17:00)
[2022-07-05] MEDS: CEFEPIME 1 GM in IV D5W 50 ML IV SCH ×2 (09:18→21:09)
[2022-07-05] MEDS: ENOXAPARIN SODIUM 40 MG/0.4 ML DISP.SYRIN SQ SCH (09:20)
[2022-07-05] MEDS: POTASSIUM CL. PREMIX PERIPHER. 50 ML IV SCH ×5 (10:37→19:59)
[2022-07-05] MEDS ORDERED: phenytoin SODIUM IV 1,000 MG in IV NS 0.9% 100 ML IV ONE (11:00)
[2022-07-05] MEDS: ACETAMINOPHEN 325 MG TABLET PO SCH ×2 (12:59→20:50)
[2022-07-05] MEDS: IV D5/ 0.9% NACL 1,000 ML IV PRN (13:31)
[2022-07-05] MEDS: PHENYTOIN SODIUM IV 100 MG/2ML VIAL IV SCH (21:09)
[2022-07-05] MEDS: ATORVASTATIN 40 MG TABLET PO SCH (21:10)
[2022-07-06 00:09] VITALS: BP 120/64
[2022-07-06] MEDS: VANCOMYCIN 1.25 GM in IV D5W 250 ML IV SCH ×2 (02:31→15:00)
[2022-07-06] MEDS: IPRATROPIUM NEB FS 0.5 MG/2.5 ML AMPUL.NEB NEB SCH ×6 (03:30→23:37)
[2022-07-06 03:51] VITALS: BP 121/79
[2022-07-06] MEDS: PHENYTOIN SODIUM IV 100 MG/2ML VIAL IV SCH ×3 (04:49→21:22)
[2022-07-06] MEDS: IV D5/ 0.9% NACL 1,000 ML IV PRN (06:14)
--- NOTE | 2022-07-06 06:35 | NUR ---
AUTO CLAIM REPRESENTATIVE CLOSING NOTES PATIENT ON BED RESTING, NONVERBAL AND A/O X1-2. ON O2 AT 2LPM VIA NASAL CANNULA TOLERATING WELL. NO SOB NOTED. NOT IN DISTRESS. WITH IV ACCESS AT THE LEFT UPPER ARM G20 WITH 1/2NS AT 75ML/HR INFUSING WELL. ON TELE MONITOR CURRENTLY READING SINUS TACHYCARDIA AT 109BPM. ON NPO FOR PATIENT FAILED SWALLOW EVAL AND AWAITING FOR PEG TUBE PLACEMENT TO BE DONE BY DR. HARP. IV MEDS AND REPLACEMENTS GIVEN. SAFETY MEASURES IN PLACED. CALL LIGHT WITHIN REACH. BED ON LOWEST LOCKED POSITION, SIDE RAILS UP X2. WILL ENDORSE TO NEXT SHIFT FOR JUNE.
--- NOTE | 2022-07-06 07:23 | NUR ---
PHOTOGRAMMETRIC TECH OPENING NOTE RECEIVED PT ASLEEP BUT EASILY WOKEN UP IN BED. PATIENT IS ALERT NON VERBAL BUT PER BALLISTICS TESTER NURSE, PATIENT WOULD OCCASIONALLY CURSE WHEN BLOOD DRAW IS DONE. PT STABLE ON OXYGEN AT 2LPM VIA NASAL CANULA, WITH EQUAL AND UNLABORED BREATHING WITH NO SOB OR S/S OF RESPIRATORY DISTRESS. ON EXTERNAL WEATHERIZATION OPERATIONS MANAGER READING ST AT 109BPM. PATIENT WITH FÁTIMA IV ACCESS WITH D5 1/2 NS AT 75ML/HR INFUSING WELL. SAFETY PRECAUTIONS IN PLACE AT ALL TIMES. BED IN LOWEST LOCKED POSITION, HOB ELEVATED, SIDE RAILS UP X3, AND CALL LIGHT AND TABLE WITHIN REACH. PATIENT ON NPO AWAITING G-TUBE PLACEMENT. WILL CONTINUE TO MONITOR PATIENT.
[2022-07-06] MEDS: PANTOPRAZOLE 40 MG TABLET.DR PO SCH (07:30)
[2022-07-06 08:24] VITALS: BP 113/61
[2022-07-06] MEDS ORDERED: CLINDAMYCIN 900 MG/6 ML VIAL ONE (08:57)
[2022-07-06] MEDS ORDERED: DEXAMETHASONE SOD PHOSPHATE 10 MG/ML VIAL ONE (08:57)
--- NOTE | 2022-07-06 08:59 | NUR ---
WINE BOTTLE INSPECTOR NOTE PATIENT PICKED UP BY OR NURSES FOR SCHEDULED OR. IN STABLE CONDITION. CONSENTS SIGNED AND ATTACHED TO CHART. HOSPITALIST SIMONA AWARE OF PROCEDURE.
[2022-07-06] MEDS: CHOLECALCIFEROL 1,000 UNIT TABLET (VIT D3) PO SCH (09:00)
[2022-07-06] MEDS: LACTOBACILLUS RHAMNOSUS GG 1 EACH CAP.SPRINK PO SCH (09:00)
[2022-07-06] MEDS: QUETIAPINE FUMARATE 25 MG TABLET PO SCH (09:00)
[2022-07-06] MEDS: DOCUSATE SODIUM 100 MG CAPSULE PO SCH (09:00)
[2022-07-06] MEDS: FLUOXETINE HCL 20 MG CAPSULE PO SCH (09:00)
[2022-07-06] MEDS: ENOXAPARIN SODIUM 40 MG/0.4 ML DISP.SYRIN SQ SCH (09:00)
[2022-07-06] MEDS: PRIMIDONE 250 MG TABLET PO SCH ×3 (09:00→13:42)
[2022-07-06] MEDS: ASPIRIN 81 MG TAB.CHEW PO SCH (09:00)
[2022-07-06] MEDS: MULTIVIT W/MINERALS 1 TAB TABLET PO SCH (09:00)
[2022-07-06] MEDS: POLYVINYL ALCOHOL 15 ML BOTTLE EACHEYE SCH ×4 (09:00→21:24)
[2022-07-06] MEDS: POLYETHYLENE GLYCOL 3350 17 GM POWD.PACK PO SCH (09:00)
[2022-07-06] MEDS: OLANZAPINE 10 MG TABLET PO SCH (09:00)
[2022-07-06] MEDS: PROPRANOLOL HCL 10 MG TABLET PO SCH (09:00)
--- NOTE | 2022-07-06 10:45 | NUR ---
RT Patient was not in the room. Breathing tx not given at this time.
--- NOTE | 2022-07-06 11:45 | NUR ---
SPORT INTERNSHIP NOTE PATIENT BACK FROM OR. COMFORT MEASURES PROVIDED. VS WITHIN NORMAL LIMITS. IN STABLE CONDITION. WITH GTUBE WITH DRY DRESSING AND ON ABDOMINAL BINDER. NOT IN DISTRESS.
[2022-07-06] MEDS: ACETAMINOPHEN 325 MG TABLET PO SCH ×2 (13:00→13:41)
[2022-07-06] MEDS: CEFEPIME 1 GM in IV D5W 50 ML IV SCH ×2 (13:26→21:21)
--- NOTE | 2022-07-06 14:24 | NUR ---
UNEMPLOYMENT INSPECTOR NOTE PATIENT WILL START G-TUBE FEEDING TOMORROW AND MEDICATIONS AND WATER THIS AFTERNOON. DIETITIAN NOTIFIED FOR G-TUBE FEEDING MANAGEMENT AND PHARMACY NOTIFIED FOR CHANGE OF ROUTE.
[2022-07-06] MEDS ORDERED: MAG HYDROX/AL HYDROX/SIMETH 30 ML UDC GT PRN (14:27)
[2022-07-06] MEDS ORDERED: MAGNESIUM HYDROXIDE 30 ML UDC GT PRN (14:27)
[2022-07-06] MEDS ORDERED: ZOLPIDEM TARTRATE 5 MG TABLET GT PRN (14:33)
[2022-07-06] MEDS ORDERED: ACETAMINOPHEN 650 MG/20.3 ML UDC GT PRN ×2 (15:00)
[2022-07-06 15:12] LABS: CALCIUM, SERUM 8.4 mg/dL (8.5-10.1); CREATININE 0.5 mg/dL (0.6-1.3); POTASSIUM 3.4 mmol/L (3.5-5.1)
[2022-07-06] MEDS: DOCUSATE SODIUM LIQ 100 MG/10 ML UDC GT SCH (17:01)
[2022-07-06] MEDS: QUETIAPINE FUMARATE 25 MG TABLET GT SCH (17:02)
[2022-07-06] MEDS: PROPRANOLOL HCL 10 MG TABLET GT SCH (17:03)
[2022-07-06] MEDS: OLANZAPINE 10 MG TABLET GT SCH (17:03)
[2022-07-06] MEDS: PRIMIDONE 250 MG TABLET GT SCH (17:07)
--- NOTE | 2022-07-06 19:06 | NUR ---
SPECIALIZED DEVELOPER OPENING NOTE PT ASLEEP BUT EASILY WOKEN UP IN BED. PATIENT IS ALERT NON VERBAL BUT PER OFFICE AUTOMATION TECHNICIAN NURSE, PATIENT WOULD OCCASIONALLY CURSE WHEN BLOOD DRAW IS DONE. PT STABLE ON ROOM AIR WITH EQUAL AND UNLABORED BREATHING WITH NO SOB OR S/S OF RESPIRATORY DISTRESS SATURATING AT 94%. ON EXTERNAL WALL WORKER READING ST AT 112BPM. PATIENT WITH FÁTIMA IV ACCESS WITH D5 1/2 NS AT 75ML/HR INFUSING WELL. SAFETY PRECAUTIONS IN PLACE AT ALL TIMES. BED IN LOWEST LOCKED POSITION, HOB ELEVATED, SIDE RAILS UP X3, AND CALL LIGHT AND TABLE WITHIN REACH. PATIENT ON NPO AWAITING G-TUBE PLACEMENT. WILL ENDORSE TO NEXT SHIFT FOR CONTINUITY OF CARE.
--- NOTE | 2022-07-06 19:40 | NUR ---
TESTER SEMICONDUCTOR PACKAGES OPENING NOTE RECEIVED PATIENT IN BED; AWAKE, ALERT AND ORIENTED X 1. BREATHING EQUAL AND NONLABORED. ON ROOM AIR; TOLERATING WELL. NOT IN ANY FORM OF RESPIRATORY DISTRESS. NO S/SX OF PAIN OR DISCOMFORT AT THIS TIME. WITH IV ACCESS ON LEFT UPPER ARM 20g: PATENT, INTACT AND SALINE LOCKED. LEFT WRIST 22g; PATENT AND INTACT INFUSING WITH D5 1/2 NS 1L REGULATED @ 75 ML/HR; FLUSHING WELL. ON TELE MONITORING WITH CURRENT READING OF SINUS TACH HR-107 BPM. S/P G-TUBE PLACEMENT. NEEDS ANTICIPATED. SAFETY MEASURES IMPLEMENTED: HEAD OF BED ELEVATED, CALL LIGHT AND TABLE WITHIN REACH, SIDE RAILS UP X2, BED IN LOWEST LOCKED POSITION. WILL CONTINUE TO MONITOR
[2022-07-06 20:00] VITALS: BP 109/65
--- NOTE | 2022-07-06 20:52 | NUR ---
RT NOTE Pt was given Q4 nebulizer tx. Tolerated well. SPO2 91% on assessment.
[2022-07-06] MEDS: ACETAMINOPHEN 650 MG/20.3 ML UDC GT SCH (21:22)
[2022-07-06] MEDS: ATORVASTATIN 40 MG TABLET GT SCH (21:22)
[2022-07-07] VITALS: BP 116/69
[2022-07-07] MEDS ORDERED: VANCOMYCIN 1 GM in IV D5W 250ml IV SCH (03:00)
[2022-07-07] MEDS: IPRATROPIUM NEB FS 0.5 MG/2.5 ML AMPUL.NEB NEB SCH ×6 (03:16→23:14)
[2022-07-07 04:00] VITALS: BP 122/69
[2022-07-07] MEDS: IV D5/ 0.9% NACL 1,000 ML IV PRN ×2 (04:05→20:26)
--- NOTE | 2022-07-07 05:06 | NUR ---
RN NOTE PT POTASSIUM LEVEL 3.4. DR ANABEL HI MADE AWARE; WITH ORDER MADE AND CARRIED OUT.
[2022-07-07] MEDS: PHENYTOIN SODIUM IV 100 MG/2ML VIAL IV SCH (05:19)
[2022-07-07] MEDS ORDERED: POTASSIUM CHLORIDE 20 MEQ TAB.PRT.SR PO ONE (05:30)
[2022-07-07 06:42] LABS: CALCIUM, SERUM 8.2 mg/dL (8.5-10.1); CREATININE 0.5 mg/dL (0.6-1.3)
--- NOTE | 2022-07-07 06:50 | NUR ---
LOAN AND CREDIT MANAGER CLOSING NOTE PATIENT IN BED; AWAKE, A/O X 1. BREATHING EQUAL AND NONLABORED. STABLE ON ROOM AIR. IN NO ACUTE DISTRESS. NO S/SX OF ANY PAIN OR DISCOMFORT NOTED AT THIS TIME. WITH IV ACCESS ON LEFT UPPER ARM 20g: PATENT, INTACT AND SALINE LOCKED. LEFT WRIST 22g; PATENT AND INTACT INFUSING WITH D5 1/2 NS 1L REGULATED @ 75 ML/HR; FLUSHING WELL. ON TELE MONITORING WITH CURRENT READING OF SINUS TACH HR-108 BPM. S/P TUBE PLACEMENT. WITH TEAGUE CATH IN PLACE DRAINING TO CLOUDY YELLOW OUTPUT. ALL NEEDS ATTENDED. SAFETY MEASURES MAINTAINED: HEAD OF BED ELEVATED, CALL LIGHT AND TABLE WITHIN REACH, SIDE RAILS UP X2, BED IN LOWEST LOCKED POSITION. ENDORSED TO MORNING SHIFT FOR JUNE.
--- NOTE | 2022-07-07 07:15 | NUR ---
ms rn received on bed,opens eyes, d5 .5 ns at 75 running at left wrist, respirations even and unlabored, lungs are diminish, abdomen soft, positive bowel sounds, g tube intact, feeding to de started today, repositioned for comfort, all needs attended, will monitor patient.
[2022-07-07 08:00] VITALS: BP 117/64
[2022-07-07] MEDS: ASPIRIN 81 MG TAB.CHEW GT SCH (09:11)
[2022-07-07] MEDS: FLUOXETINE HCL 20 MG CAPSULE GT SCH (09:11)
[2022-07-07] MEDS: PANTOPRAZOLE 40 MG/PACK PACK GT SCH (09:12)
[2022-07-07] MEDS: CHOLECALCIFEROL 1,000 UNIT TABLET (VIT D3) GT SCH (09:12)
[2022-07-07] MEDS: POLYETHYLENE GLYCOL 3350 17 GM POWD.PACK GT SCH (09:13)
[2022-07-07] MEDS: MULTIVIT W/MINERALS 1 TAB TABLET GT SCH (09:13)
[2022-07-07] MEDS: PROPRANOLOL HCL 10 MG TABLET GT SCH ×2 (09:14→17:00)
[2022-07-07] MEDS: QUETIAPINE FUMARATE 25 MG TABLET GT SCH ×2 (09:14→17:26)
[2022-07-07] MEDS: PRIMIDONE 250 MG TABLET GT SCH ×3 (09:14→17:26)
[2022-07-07] MEDS: OLANZAPINE 10 MG TABLET GT SCH ×2 (09:14→17:26)
[2022-07-07] MEDS: DOCUSATE SODIUM LIQ 100 MG/10 ML UDC GT SCH ×2 (09:15→17:25)
[2022-07-07] MEDS: LACTOBACILLUS RHAMNOSUS GG 1 EACH CAP.SPRINK GT SCH (09:15)
[2022-07-07] MEDS: ENOXAPARIN SODIUM 40 MG/0.4 ML DISP.SYRIN SQ SCH (09:16)
[2022-07-07] MEDS: CEFEPIME 1 GM in IV D5W 50 ML IV SCH (09:18)
[2022-07-07] MEDS: JEVITY 1.2 CAL 1,000 ML BOTTLE GT PRN (09:29)
--- NOTE | 2022-07-07 09:30 | NUR ---
ms rn started opn g tube feeding, tolerated well at 20ml/hour will increase as ordered by dr. mcdaniels,
[2022-07-07] MEDS: POLYVINYL ALCOHOL 15 ML BOTTLE EACHEYE SCH ×4 (09:51→21:27)
[2022-07-07] MEDS ORDERED: POTASSIUM CHLORIDE 20 MEQ POWDER PACKET GT ONE ×2 (10:00→14:00)
--- NOTE | 2022-07-07 10:00 | NUR ---
ms nhung due meds given via g tube, tolerated well.
[2022-07-07 12:00] VITALS: BP 92/60
[2022-07-07] MEDS: PHENYTOIN SUSP UDC 100 MG/4 ML UDC GT SCH ×2 (13:59→21:26)
[2022-07-07] MEDS: ACETAMINOPHEN 650 MG/20.3 ML UDC GT SCH ×2 (13:59→21:27)
--- NOTE | 2022-07-07 15:30 | NUR ---
ms rn g tube feeding increased to 30ml/hr per md order.no residual noted, tolerating well.
[2022-07-07 16:00] VITALS: BP 99/58
--- NOTE | 2022-07-07 19:01 | NUR ---
ms rn on bed,no distress noted,all needs attended.
--- NOTE | 2022-07-07 19:34 | NUR ---
Patient received on room air and tolerating well. Q4 breathing treatment given and tolerated well without adverse effect. No respiratory distress noted.
[2022-07-07 20:00] VITALS: BP 136/79
--- NOTE | 2022-07-07 20:45 | NUR ---
MS RN OPENING NOTES: RECEIVED PATIENT AWAKE IN BED, NONE VERBAL OPENS EYES, BED IN LOW POSITION, CALL LIGHTS WITHIN REACH, NO COMPLAIN OF PAIN AND DISCOMFORT AT THIS TIME,. ON ROOM AIR SATURATING WELL. NO FEVER WAS OBSERVED, PATIENT IS A/OX1 ON G TUBE FEEDING OF JEVITY 1/2 @30ML/HR TO INCREASE TO 110ML Q6H MAXIMUM OF 80ML, ON TEAGUE CATHETER-50CC OUTPUT, , IV LINE AT FÁTIMA#20 WITH ONGOING D5NS@75ML/HR INFUSING WELL, PATIENT KEPT CLEAN AND DRY ALL NEEDS MET WILL CONTINUE TO MONITOR
[2022-07-07] MEDS: ATORVASTATIN 40 MG TABLET GT SCH (21:27)
[2022-07-08] MEDS: IPRATROPIUM NEB FS 0.5 MG/2.5 ML AMPUL.NEB NEB SCH ×6 (03:42→23:55)
[2022-07-08] MEDS: PHENYTOIN SUSP UDC 100 MG/4 ML UDC GT SCH ×3 (05:27→21:20)
--- NOTE | 2022-07-08 06:28 | NUR ---
MS RN CLOSING NOTES: PATIENT SLEEP IN BED COMFORTABLY, AROUSABLE TO TACTILE STIMULI, PATIENT IS A/OX1 NONE VERBAL OPENS EYES, ON NPO, ON G TUBE FEEDING OF JEVITY 1.2 @50ML/HR TO INCREASE EVERY 6 HOURS BY 10-15ML, ON TEAGUE CATHETER-800CC URINE OUTPUT, IV LINE AT LINE AT FÁTIMA#20 WITH ONGOING D5NS@75ML/HR INFUSING WELL, PATIENT KEPT CLEAN AND DRY AL NEEDS MET ENDORSE TO INCOMING SHIFT.
--- NOTE | 2022-07-08 07:00 | NUR ---
MS RN OPENING NOTES PATIENT LAYING IN BED, AROUSABLE TO TOUCH, A/O X 1, TOLERATING WELL ON ROOM AIR WITH NO S/S RESPIRATORY DISTRESS. G-TUBE IN PLACE WITH JEVITY 1.2 GASTON @ 50 ML/HR INFUSING. TEAGUE CATHETER IN PLACE DRAINING CLEAR YELLOW URINE TO GRAVITY. L UA # 20 G IV CLEAN, INTACT, AND INFUSING NS @ 75 ML/HR. SAFETY MEASURES IN PLACE: BED IN LOWEST LOCKED POSITION, SIDE RAILS UP X 2, CALL LIGHT WITHIN REACH. WILL CONTINUE TO MONITOR.
[2022-07-08 08:00] VITALS: BP 129/73
[2022-07-08] MEDS: FLUOXETINE HCL 20 MG CAPSULE GT SCH (08:21)
[2022-07-08] MEDS: OLANZAPINE 10 MG TABLET GT SCH ×2 (08:22→17:43)
[2022-07-08] MEDS: LACTOBACILLUS RHAMNOSUS GG 1 EACH CAP.SPRINK GT SCH (08:22)
[2022-07-08] MEDS: MULTIVIT W/MINERALS 1 TAB TABLET GT SCH (08:22)
[2022-07-08] MEDS: PANTOPRAZOLE 40 MG/PACK PACK GT SCH (08:22)
[2022-07-08] MEDS: ASPIRIN 81 MG TAB.CHEW GT SCH (08:22)
[2022-07-08] MEDS: CHOLECALCIFEROL 1,000 UNIT TABLET (VIT D3) GT SCH (08:22)
[2022-07-08] MEDS: PRIMIDONE 250 MG TABLET GT SCH ×3 (08:23→17:42)
[2022-07-08] MEDS: DOCUSATE SODIUM LIQ 100 MG/10 ML UDC GT SCH ×2 (08:23→17:42)
[2022-07-08] MEDS: POLYETHYLENE GLYCOL 3350 17 GM POWD.PACK GT SCH (08:23)
[2022-07-08] MEDS: ENOXAPARIN SODIUM 40 MG/0.4 ML DISP.SYRIN SQ SCH (08:27)
[2022-07-08] MEDS: PROPRANOLOL HCL 10 MG TABLET GT SCH ×2 (08:32→17:43)
[2022-07-08] MEDS: QUETIAPINE FUMARATE 25 MG TABLET GT SCH ×2 (08:33→17:42)
[2022-07-08] MEDS: POLYVINYL ALCOHOL 15 ML BOTTLE EACHEYE SCH ×4 (09:34→21:27)
[2022-07-08] MEDS ORDERED: MINERAL OIL 133 ML (PYXIS) 1 EA ENEMA RC ONE (10:00)
[2022-07-08] MEDS ORDERED: POLYETHYLENE GLYCOL 3350 17 GM POWD.PACK GT ONE (10:00)
[2022-07-08] MEDS: ACETAMINOPHEN 650 MG/20.3 ML UDC GT SCH ×2 (13:01→21:20)
[2022-07-08 13:21] LABS: BASOPHILS % (AUTO) 0.4 % (0.0-2.0); EOSINOPHILS % (AUTO) 4.6 % (0.0-6.0); HEMATOCRIT 36 % (39-51); HEMOGLOBIN 11.6 g/dL (13.5-17.5); LYMPHOCYTES # (AUTO) 1.1 K/uL (0.8-4.8); LYMPHOCYTES % (AUTO) 14.9 % (20.0-44.0); MEAN CORPUSCULAR HGB CONC 32 g/dl (31.0-36.0); MEAN CORPUSCULAR VOLUME 90 fL (80-96); MONOCYTES # (AUTO) 0.8 K/uL (0.1-1.30); NEUTROPHILS # (AUTO) 4.9 K/uL (1.8-8.9); NEUTROPHILS % (AUTO) 69.1 % (43.0-81.0); PLATELET COUNT (AUTO) 339 K/uL (150-450); RED BLOOD CELL COUNT(AUTO) 3.99 MIL/uL (4.5-6.0); WHITE BLOOD COUNT (AUTO) 7.1 K/uL (4.3-11.0)
[2022-07-08 16:00] VITALS: BP 105/82
[2022-07-08] MEDS: JEVITY 1.2 CAL 1,000 ML BOTTLE GT PRN (18:16)
--- NOTE | 2022-07-08 19:34 | NUR ---
MS RN OPENING NOTES RECEIVED PATIENT IN WITH EYES CLOSED BUT AROUSABLE TO TOUCH, A/O X 1, TOLERATING WELL ON ROOM AIR WITH NO SOB/RESPIRATORY DISTRESS NOTED.G-TUBE FEEDING JEVITY 1.2 GASTON @ 70 ML/HR.CURT WELL NO RESIDUAL NOTED. TEAGUE CATHETER IN PLACE DRAINING CLEAR YELLOW URINE TO GRAVITY. L UA # 20 G IV PATENT AND INTACT,SAFETY MEASURES IN PLACE: BED IN LOWEST LOCKED POSITION, SIDE RAILS UP X 2, CALL LIGHT WITHIN REACH. WILL CONTINUE TO MONITOR.
[2022-07-08 20:00] VITALS: BP 143/68
[2022-07-08] MEDS: ATORVASTATIN 40 MG TABLET GT SCH (21:20)
[2022-07-09 04:00] VITALS: BP 95/59
[2022-07-09] MEDS: IPRATROPIUM NEB FS 0.5 MG/2.5 ML AMPUL.NEB NEB SCH ×6 (04:05→23:12)
[2022-07-09] MEDS: PHENYTOIN SUSP UDC 100 MG/4 ML UDC GT SCH ×3 (05:26→21:41)
--- NOTE | 2022-07-09 06:19 | NUR ---
MS RN CLOSING NOTES; PATIENT IN BED WITH EYES CLOSED BUT AROUSABLE TO TOUCH, A/O X 1, TOLERATING WELL ON ROOM AIR WITH NO SOB/RESPIRATORY DISTRESS NOTED.G-TUBE FEEDING JEVITY 1.2 GASTON @ 80 ML/HR.CURT WELL NO RESIDUAL NOTED.HOB ELEVATED AT ALL TIME,DUE MEDS GIVEN VIA GT ORDER, TEAGUE CATHETER IN PLACE DRAINING CLEAR YELLOW URINE TO GRAVITY OUTPUT 1200ML. L UA # 20 G IV PATENT AND INTACT,SAFETY MEASURES IN PLACE: BED IN LOWEST LOCKED POSITION, SIDE RAILS UP X 2, CALL LIGHT WITHIN REACH. WILL ENDORSED TO NEXT SHIFT.
[2022-07-09 06:29] LABS: CREATININE 0.5 mg/dL (0.6-1.3); POTASSIUM 4.9 mmol/L (3.5-5.1)
[2022-07-09 06:59] LABS: BASOPHILS # (AUTO) 0.1 K/uL (0.0-0.2); BASOPHILS % (AUTO) 0.5 % (0.0-2.0); HEMATOCRIT 37 % (39-51); HEMOGLOBIN 12.1 g/dL (13.5-17.5); LYMPHOCYTES # (AUTO) 1.6 K/uL (0.8-4.8); MEAN CORPUSCULAR HGB CONC 33 g/dl (31.0-36.0); MEAN CORPUSCULAR VOLUME 89 fL (80-96); MONOCYTES # (AUTO) 1.3 K/uL (0.1-1.30); MONOCYTES % (AUTO) 12.2 % (2.0-12.0); NEUTROPHILS # (AUTO) 7.4 K/uL (1.8-8.9); NEUTROPHILS % (AUTO) 68.3 % (43.0-81.0); PLATELET COUNT (AUTO) 357 K/uL (150-450); RED BLOOD CELL COUNT(AUTO) 4.16 MIL/uL (4.5-6.0); WHITE BLOOD COUNT (AUTO) 10.9 K/uL (4.3-11.0)
[2022-07-09 08:00] VITALS: BP 117/67
[2022-07-09] MEDS: DOCUSATE SODIUM LIQ 100 MG/10 ML UDC GT SCH ×2 (08:37→16:54)
[2022-07-09] MEDS: ENOXAPARIN SODIUM 40 MG/0.4 ML DISP.SYRIN SQ SCH (08:37)
[2022-07-09] MEDS: LACTOBACILLUS RHAMNOSUS GG 1 EACH CAP.SPRINK GT SCH (08:37)
[2022-07-09] MEDS: OLANZAPINE 10 MG TABLET GT SCH ×2 (08:38→16:54)
[2022-07-09] MEDS: PRIMIDONE 250 MG TABLET GT SCH ×3 (08:38→16:54)
[2022-07-09] MEDS: QUETIAPINE FUMARATE 25 MG TABLET GT SCH ×2 (08:38→16:57)
[2022-07-09] MEDS: CHOLECALCIFEROL 1,000 UNIT TABLET (VIT D3) GT SCH (08:38)
[2022-07-09] MEDS: PROPRANOLOL HCL 10 MG TABLET GT SCH ×2 (08:38→16:56)
[2022-07-09] MEDS: MULTIVIT W/MINERALS 1 TAB TABLET GT SCH (08:39)
[2022-07-09] MEDS: PANTOPRAZOLE 40 MG/PACK PACK GT SCH (08:39)
[2022-07-09] MEDS: POLYETHYLENE GLYCOL 3350 17 GM POWD.PACK GT SCH (08:39)
[2022-07-09] MEDS: FLUOXETINE HCL 20 MG CAPSULE GT SCH (08:39)
[2022-07-09] MEDS: ASPIRIN 81 MG TAB.CHEW GT SCH (08:39)
[2022-07-09] MEDS: POLYVINYL ALCOHOL 15 ML BOTTLE EACHEYE SCH ×4 (08:40→21:45)
--- NOTE | 2022-07-09 09:39 | NUR ---
RN OPENING NOTES RECEIVED PATIENT SLEEPING IN BED, NON-VERBAL, OPENS EYES, ALERT AND ORIENTED X1, ON ROOM AIR, NO SIGNS OF DISTRESS NOTED. PATIENT ON G TUBE FEEDING OF JEVITY / @ 80ML. IV LINE AT FÁTIMA 20G SL, L HAND HAS 20G SL. BED IN LOWEST POSITION, CALL LIGHT WITHIN REACH, BED LOCKED, SIDE RAILS UP X2. ALL NEEDS MET, WILL CONTINUE TO MONITOR
[2022-07-09] MEDS: ACETAMINOPHEN 650 MG/20.3 ML UDC GT SCH ×2 (12:59→21:41)
[2022-07-09] MEDS: JEVITY 1.2 CAL 1,000 ML BOTTLE GT PRN (15:47)
--- NOTE | 2022-07-09 18:16 | NUR ---
RN CLOSING NOTES PATIENT IN BED WITH EYES CLOSED BUT AROUSABLE TO TOUCH, A/O X 1, TOLERATING WELL ON ROOM AIR WITH NO RESPIRATORY DISTRESS. HAS G-TUBE FEEDING JEVITY 1.2 GASTON @ 80 ML/HR, TOLERATING WELL WITH NO RESIDUAL. HOB ELEVATED AT ALL TIME. TEAGUE CATHETER IN PLACE DRAINING CLEAR YELLOW URINE TO GRAVITY OUTPUT 1200ML. FÁTIMA 20G IV SL, PATENT AND INTACT,SAFETY MEASURES IN PLACE: BED IN LOWEST LOCKED POSITION, SIDE RAILS UP X 2, CALL LIGHT WITHIN REACH. WILL ENDORSED TO NEXT SHIFT
--- NOTE | 2022-07-09 19:45 | NUR ---
msrn asleep, opens eyes when called. no sob, appears comfortable. present gt feedings with 5cc residuals obtained. feedings continued at 80cc/hr. hob at 45 degrees at all times. postioned for comfort.
[2022-07-09 20:39] VITALS: BP 104/57
[2022-07-09] MEDS: ATORVASTATIN 40 MG TABLET GT SCH (21:40)
[2022-07-10] MEDS: IPRATROPIUM NEB FS 0.5 MG/2.5 ML AMPUL.NEB NEB SCH ×6 (03:37→23:18)
--- NOTE | 2022-07-10 03:51 | NUR ---
RT Pt on room air with an SPO2 of 97%. Awake, but unable to follow commands. Tolerates breathing tx with no adverse reactions.
[2022-07-10] MEDS: PHENYTOIN SUSP UDC 100 MG/4 ML UDC GT SCH ×3 (05:31→21:26)
--- NOTE | 2022-07-10 06:59 | NUR ---
MSRN REMAINS UNCHANGED, FEEDINGS RESUMED.
--- NOTE | 2022-07-10 07:30 | NUR ---
RN MS NOTES PT IN BED, ASLEEP, EASY TO AROUSE, ALERT TO NAME, NO SIGN OF PAIN OR DISTRESS, GT FEEDING INFUSING WELL, CALL LIGHT WITHIN REACH, KEPT WARM AND COMFORTABLE IN BED.
[2022-07-10 08:00] VITALS: BP 123/66
[2022-07-10] MEDS: MULTIVIT W/MINERALS 1 TAB TABLET GT SCH (09:00)
[2022-07-10] MEDS: POLYETHYLENE GLYCOL 3350 17 GM POWD.PACK GT SCH (09:00)
[2022-07-10] MEDS: DOCUSATE SODIUM LIQ 100 MG/10 ML UDC GT SCH ×2 (09:00→17:00)
[2022-07-10] MEDS: LACTOBACILLUS RHAMNOSUS GG 1 EACH CAP.SPRINK GT SCH (09:00)
[2022-07-10] MEDS: PROPRANOLOL HCL 10 MG TABLET GT SCH ×2 (09:00→16:59)
[2022-07-10] MEDS: FLUOXETINE HCL 20 MG CAPSULE GT SCH (09:01)
[2022-07-10] MEDS: OLANZAPINE 10 MG TABLET GT SCH ×2 (09:01→16:58)
[2022-07-10] MEDS: CHOLECALCIFEROL 1,000 UNIT TABLET (VIT D3) GT SCH (09:01)
[2022-07-10] MEDS: QUETIAPINE FUMARATE 25 MG TABLET GT SCH ×2 (09:01→16:57)
[2022-07-10] MEDS: PRIMIDONE 250 MG TABLET GT SCH ×3 (09:01→16:57)
[2022-07-10] MEDS: PANTOPRAZOLE 40 MG/PACK PACK GT SCH (09:01)
[2022-07-10] MEDS: ENOXAPARIN SODIUM 40 MG/0.4 ML DISP.SYRIN SQ SCH (09:04)
[2022-07-10] MEDS: ASPIRIN 81 MG TAB.CHEW GT SCH (09:07)
[2022-07-10] MEDS: JEVITY 1.2 CAL 1,000 ML BOTTLE GT PRN (09:08)
[2022-07-10] MEDS: POLYVINYL ALCOHOL 15 ML BOTTLE EACHEYE SCH ×4 (09:09→21:30)
[2022-07-10] MEDS: ACETAMINOPHEN 650 MG/20.3 ML UDC GT SCH ×2 (12:45→21:26)
[2022-07-10 16:00] VITALS: BP 125/74
--- NOTE | 2022-07-10 17:00 | NUR ---
RN MS NOTES COLACE NOT GIVEN, PT HAD AN EPISODE OF LOOSE STOOL.
--- NOTE | 2022-07-10 19:00 | NUR ---
RN MS NOTES PT IN BED, RESTING, NO SIGN OF PAIN OR DISTRESS, GT FEEDING INFUSING WELL, TOLERATES WELL, CALL LIGHT WITHIN REACH, PM MEDS GIVEN ORDERED, PM CARE RENDERED, KEPT CLEAN AND DRY AT ALL TIMES.
[2022-07-10 20:00] VITALS: BP 125/77
--- NOTE | 2022-07-10 20:12 | NUR ---
MS/TELE/RN RECEIVED PATIENT LYING IN BED AWAKE, NON VERBAL, NO SIGNS OF DISTRESS NOTED, G TUBE FEEDING INFUSING WITH 100 MLS RESIDUAL, HELD FEEDING FOR NOW, WILL RECHECK IN ONE HOUR, FALL PRECAUTIONS PER PROTOCOL IMPLEMENTED, CALL LIGHT IN REACH. WILL MONITOR.
[2022-07-10] MEDS: ATORVASTATIN 40 MG TABLET GT SCH (21:26)
--- NOTE | 2022-07-10 21:45 | NUR ---
MS/TELE/RN GASTRIC RESIDUAL STILL 70 MLS, WILL CONTINUE TO HOLD FEEDING.
--- NOTE | 2022-07-11 | NUR ---
MS/TELE/RN RESIDUAL ZERO, TUBE FEEDING RE STARTED.
[2022-07-11] MEDS: IPRATROPIUM NEB FS 0.5 MG/2.5 ML AMPUL.NEB NEB SCH ×5 (03:01→20:36)
[2022-07-11] MEDS: JEVITY 1.2 CAL 1,000 ML BOTTLE GT PRN (05:15)
--- NOTE | 2022-07-11 06:20 | NUR ---
MS/TELE/RN PATIENT IS SLEEPING, NO DISTRESS NOTED, CALL LIGHT IN REACH, ALL NEEDS ATTENDED AT THIS TIME, WILL CONTINUE TO MONITOR.
[2022-07-11] MEDS: PHENYTOIN SUSP UDC 100 MG/4 ML UDC GT SCH ×3 (06:47→21:05)
--- NOTE | 2022-07-11 07:30 | NUR ---
RN MS NOTES PT IN BED, ASLEEP, EASY TO AROUSE, ALERT TO SELF, NO SIGN OF PAIN OR ANY DISTRESS, GT FEEDING TOLERATED WELL, KEPT WARM AND COMFORTABLE.
[2022-07-11 08:00] VITALS: BP 121/74
[2022-07-11] MEDS: POLYETHYLENE GLYCOL 3350 17 GM POWD.PACK GT SCH (09:10)
[2022-07-11] MEDS: LACTOBACILLUS RHAMNOSUS GG 1 EACH CAP.SPRINK GT SCH (09:13)
[2022-07-11] MEDS: OLANZAPINE 10 MG TABLET GT SCH ×2 (09:13→17:59)
[2022-07-11] MEDS: ASPIRIN 81 MG TAB.CHEW GT SCH (09:13)
[2022-07-11] MEDS: PROPRANOLOL HCL 10 MG TABLET GT SCH ×2 (09:13→16:57)
[2022-07-11] MEDS: FLUOXETINE HCL 20 MG CAPSULE GT SCH (09:13)
[2022-07-11] MEDS: MULTIVIT W/MINERALS 1 TAB TABLET GT SCH (09:14)
[2022-07-11] MEDS: PRIMIDONE 250 MG TABLET GT SCH ×3 (09:14→17:59)
[2022-07-11] MEDS: QUETIAPINE FUMARATE 25 MG TABLET GT SCH ×2 (09:14→17:59)
[2022-07-11] MEDS: PANTOPRAZOLE 40 MG/PACK PACK GT SCH (09:14)
[2022-07-11] MEDS: DOCUSATE SODIUM LIQ 100 MG/10 ML UDC GT SCH ×2 (09:15→17:59)
[2022-07-11] MEDS: POLYVINYL ALCOHOL 15 ML BOTTLE EACHEYE SCH ×4 (09:51→21:11)
[2022-07-11] MEDS: ENOXAPARIN SODIUM 40 MG/0.4 ML DISP.SYRIN SQ SCH (09:55)
[2022-07-11] MEDS: CHOLECALCIFEROL 1,000 UNIT TABLET (VIT D3) GT SCH (10:04)
[2022-07-11] MEDS: ACETAMINOPHEN 650 MG/20.3 ML UDC GT SCH ×2 (13:50→21:05)
[2022-07-11 15:30] VITALS: BP 106/20
--- NOTE | 2022-07-11 18:21 | NUR ---
RN MS NOTES PT IN BED, RESTING, NO SIGN OF PAIN, NOT IN DISTRESS, ALL DUE MEDS GIVEN ORDERED, PM CARE PROVIDED, TURNED AND REPOSITIONED FOR COMFORT, F/C IN PLACE, DRAINING WELL WITH CLEAR, YELLOW URINE, ALL NEEDS ATTENDED.
--- NOTE | 2022-07-11 19:45 | NUR ---
MS RN OPENING NOTES RECEIVED PATIENT LYING IN BED. NON-VERBAL, OPENS EYES ON VERBAL AND TACTILE STIMULI. BREATHING EVEN AND NON-LABORED ON ROOM AIR. NOT IN APPARENT DISTRESS. NO PAIN OR DISCOMFORT NOTED. HAS LEFT UPPER ARM IV ACCESS #20G AND SALINE LOCKED. NO S/S OF INFILTRATION NOTED. ON G-TUBE FEEDING OF JEVITY RUNNING AT 80 ML/HR. HAS TEAGUE CATHETER DRAINING CLEAR GURJIT URINE TO BAG BY GRAVITY. SAFETY MEASURES IN PLACE: BED LOCKED AND IN LOWEST POSITION, SIDE RAILS UP X2, CALL LIGHT WITHIN REACH. WILL CONTINUE POC.
[2022-07-11 20:00] VITALS: BP 128/74
[2022-07-11] MEDS: ATORVASTATIN 40 MG TABLET GT SCH (21:06)
[2022-07-12] MEDS: IPRATROPIUM NEB FS 0.5 MG/2.5 ML AMPUL.NEB NEB SCH ×6 (01:08→20:27)
[2022-07-12] MEDS: PHENYTOIN SUSP UDC 100 MG/4 ML UDC GT SCH ×3 (05:26→21:41)
[2022-07-12] MEDS: JEVITY 1.2 CAL 1,000 ML BOTTLE GT PRN (05:30)
--- NOTE | 2022-07-12 06:33 | NUR ---
MS RN CLOSING NOTES PATIENT LYING IN BED SLEEPING. RESPONSIVE TO VERBAL AND TACTILE STIMULI, NON-VERBAL. NO SOB OR NOTED, TOLERATING ROOM AIR WELL. NO ACUTE DISTRESS NOTED. AFEBRILE. HAS LEFT UPPER ARM IV ACCESS #20G AND SALINE LOCKED. INTACT, PATENT AND FLUSHING. ON G-TUBE FEEDING OF JEVITY RUNNING AT 80 ML/HR, NO RESIDUAL UPON ASPIRATION. HAS TEAGUE CATHETER DRAINING CLEAR YELLOW URINE TO BAG BY GRAVITY. URINE OUTPUT OF 1600 ML. ALL DUE MEDS GIVEN AND NEEDS ATTENDED. SAFETY MEASURES MAINTAINED. WILL ENDORSE FOR JUNE..
--- NOTE | 2022-07-12 07:30 | NUR ---
MS RN OPENING NOTES RECEIVED PATIENT ON BED AWAKE, NON VERBAL. ON ROOM AIR TOLERATING WELL. NO SOB NOTED. NOT IN DISTRESS. IN NO SIGNS OF PAIN OR DISCOMFORT VIA FLACC LEVEL OF PAIN. ON G-TUBE FEEDING OF JEVITY 1.2 AT 80ML/HR RUNNING WELL. WITH IV ACCESS AT THE LEFT UPPER ARM G20 SALINE LOCKED, PATENT AND INTACT. SAFETY MEASURES IN PLACED. CALL LIGHT WITHIN REACH. BED ON LOWER LOCKED POSITION, SIDE RAILS UP X2. WILL CONTINUE TO MONITOR.
[2022-07-12 08:06] VITALS: BP 128/70
[2022-07-12] MEDS: DOCUSATE SODIUM LIQ 100 MG/10 ML UDC GT SCH ×2 (09:14→17:54)
[2022-07-12] MEDS: PANTOPRAZOLE 40 MG/PACK PACK GT SCH (09:14)
[2022-07-12] MEDS: MULTIVIT W/MINERALS 1 TAB TABLET GT SCH (09:14)
[2022-07-12] MEDS: FLUOXETINE HCL 20 MG CAPSULE GT SCH (09:14)
[2022-07-12] MEDS: LACTOBACILLUS RHAMNOSUS GG 1 EACH CAP.SPRINK GT SCH (09:14)
[2022-07-12] MEDS: QUETIAPINE FUMARATE 25 MG TABLET GT SCH ×2 (09:14→17:55)
[2022-07-12] MEDS: CHOLECALCIFEROL 1,000 UNIT TABLET (VIT D3) GT SCH (09:15)
[2022-07-12] MEDS: ASPIRIN 81 MG TAB.CHEW GT SCH (09:15)
[2022-07-12] MEDS: PRIMIDONE 250 MG TABLET GT SCH ×3 (09:15→17:55)
[2022-07-12] MEDS: OLANZAPINE 10 MG TABLET GT SCH ×2 (09:15→17:54)
[2022-07-12] MEDS: POLYETHYLENE GLYCOL 3350 17 GM POWD.PACK GT SCH (09:15)
[2022-07-12] MEDS: PROPRANOLOL HCL 10 MG TABLET GT SCH ×2 (09:15→17:00)
[2022-07-12] MEDS: POLYVINYL ALCOHOL 15 ML BOTTLE EACHEYE SCH ×4 (09:16→21:42)
[2022-07-12] MEDS: ENOXAPARIN SODIUM 40 MG/0.4 ML DISP.SYRIN SQ SCH (09:16)
[2022-07-12] MEDS: ACETAMINOPHEN 650 MG/20.3 ML UDC GT SCH ×2 (13:41→21:42)
[2022-07-12 16:10] VITALS: BP 118/65
--- NOTE | 2022-07-12 18:40 | NUR ---
MS RN CLOSING NOTES PATIENT ON BED RESTING, NON VERBAL. ON ROOM AIR TOLERATING WELL. NO SOB NOTED. NOT IN DISTRESS. IN NO SIGNS OF PAIN OR DISCOMFORT VIA FLACC LEVEL OF PAIN. ON G-TUBE FEEDING OF JEVITY 1.2 AT 80ML/HR RUNNING WELL. WITH IV ACCESS AT THE LEFT UPPER ARM G20 SALINE LOCKED, PATENT AND INTACT. DUE MEDS GIVEN. SAFETY MEASURES IN PLACED. CALL LIGHT WITHIN REACH. BED ON LOWER LOCKED POSITION, SIDE RAILS UP X2. WILL ENDORSE TO NEXT SHIFT FOR JUNE.
--- NOTE | 2022-07-12 19:34 | NUR ---
MS RN OPENING NOTES: RECEIVED PATIENT SLEEP IN BED COMFORTABLY, AROUSABLE TO VERBAL STIMULI, PATIENT IS NONE VERBAL OPENS EYES, BED IN LOW POSITION CALL LIGHTS WITHIN REACH, ON ROOM AIR SATURATING WELL PATIENT IS NPO ON GTUBE FEEDING WITH ONGOING , JEVITY 1.2@80ML/HR INFUSING WELL, WITH ABDOMINAL BINDER, ON TEAGUE CATHETER, IV LINE AT FÁTIMA#20SL, PATIENT KEPT CLEAN AND DRY ALL NEEDS MET WILL CONTINUE TO MONITOR
[2022-07-12 20:00] VITALS: BP 108/59
[2022-07-12] MEDS: ATORVASTATIN 40 MG TABLET GT SCH (21:41)
[2022-07-13] MEDS: IPRATROPIUM NEB FS 0.5 MG/2.5 ML AMPUL.NEB NEB SCH ×6 (00:02→20:37)
[2022-07-13] MEDS: JEVITY 1.2 CAL 1,000 ML BOTTLE GT PRN ×2 (04:41→18:12)
[2022-07-13] MEDS: PHENYTOIN SUSP UDC 100 MG/4 ML UDC GT SCH ×3 (05:19→21:39)
--- NOTE | 2022-07-13 06:32 | NUR ---
MS RN CLOSING NOTES: PATIENT SLEEP IN BED COMFORTABLY, BED IN LOW POSITION CALL LIGHTS WITHIN REACH, ON ROOM AIR SATURATING WELL, HOB AT 45 DEGREE AT ALLL TIMES, NPO ON G TUBE FEEDING OF JEVITY 1.2@80 ML/HR INFUSING WELL, ON TEAGUE CATHETER-850CC URINE OUTPUT, REPOSITION, PATIENT KEPT CLEAN AND DRY ALL NEEDS MET WILL CONTINUE TO MONITOR
--- NOTE | 2022-07-13 07:30 | NUR ---
MS RN OPENING NOTES RECEIVED PATIENT ON BED AWAKE AND A/O X1. ON ROOM AIR TOLERATING WELL. NO SOB NOTED. NOT IN DISTRESS. IN NO SIGNS OF PAIN OR DISCOMFORT VIA FLACC LEVEL OF PAIN. ON G-TUBE FEEDING OF JEVITY 1.2 AT 80ML/HR RUNNING WELL. WITH IV ACCESS AT THE LEFT UPPER ARM G20 SALINE LOCKED, PATENT AND INTACT. SAFETY MEASURES IN PLACED. CALL LIGHT WITHIN REACH. BED ON LOWER LOCKED POSITION, SIDE RAILS UP X2. WILL CONTINUE TO MONITOR.
[2022-07-13] MEDS: OLANZAPINE 10 MG TABLET GT SCH ×2 (08:12→17:05)
[2022-07-13] MEDS: ENOXAPARIN SODIUM 40 MG/0.4 ML DISP.SYRIN SQ SCH (08:12)
[2022-07-13] MEDS: LACTOBACILLUS RHAMNOSUS GG 1 EACH CAP.SPRINK GT SCH (08:12)
[2022-07-13] MEDS: DOCUSATE SODIUM LIQ 100 MG/10 ML UDC GT SCH ×2 (08:12→17:04)
[2022-07-13] MEDS: PRIMIDONE 250 MG TABLET GT SCH ×3 (08:12→17:05)
[2022-07-13] MEDS: PANTOPRAZOLE 40 MG/PACK PACK GT SCH (08:13)
[2022-07-13] MEDS: POLYETHYLENE GLYCOL 3350 17 GM POWD.PACK GT SCH (08:13)
[2022-07-13] MEDS: CHOLECALCIFEROL 1,000 UNIT TABLET (VIT D3) GT SCH (08:13)
[2022-07-13] MEDS: FLUOXETINE HCL 20 MG CAPSULE GT SCH (08:13)
[2022-07-13] MEDS: ASPIRIN 81 MG TAB.CHEW GT SCH (08:13)
[2022-07-13] MEDS: MULTIVIT W/MINERALS 1 TAB TABLET GT SCH (08:13)
[2022-07-13] MEDS: QUETIAPINE FUMARATE 25 MG TABLET GT SCH ×2 (08:13→17:05)
[2022-07-13] MEDS: POLYVINYL ALCOHOL 15 ML BOTTLE EACHEYE SCH ×4 (08:14→21:39)
[2022-07-13] MEDS: PROPRANOLOL HCL 10 MG TABLET GT SCH ×2 (08:14→17:06)
[2022-07-13 08:30] VITALS: BP 116/62
[2022-07-13 09:09] LABS: BASOPHILS % (AUTO) 0.5 % (0.0-2.0); EOSINOPHILS % (AUTO) 3.9 % (0.0-6.0); HEMATOCRIT 35 % (39-51); HEMOGLOBIN 11.6 g/dL (13.5-17.5); MEAN CORPUSCULAR HGB CONC 33 g/dl (31.0-36.0); MEAN CORPUSCULAR VOLUME 89 fL (80-96); MONOCYTES # (AUTO) 0.7 K/uL (0.1-1.30); MONOCYTES % (AUTO) 7.5 % (2.0-12.0); NEUTROPHILS # (AUTO) 7.5 K/uL (1.8-8.9); NEUTROPHILS % (AUTO) 78.1 % (43.0-81.0); PLATELET COUNT (AUTO) 380 K/uL (150-450); RED BLOOD CELL COUNT(AUTO) 3.98 MIL/uL (4.5-6.0); WHITE BLOOD COUNT (AUTO) 9.5 K/uL (4.3-11.0)
[2022-07-13 09:19] LABS: CALCIUM, SERUM 8.2 mg/dL (8.5-10.1); CREATININE 0.6 mg/dL (0.6-1.3); POTASSIUM 4.4 mmol/L (3.5-5.1)
[2022-07-13] MEDS: ACETAMINOPHEN 650 MG/20.3 ML UDC GT SCH ×2 (13:20→21:38)
[2022-07-13 16:12] VITALS: BP 106/63
--- NOTE | 2022-07-13 18:25 | NUR ---
MS RN CLOSING NOTES PATIENT ON BED AWAKE AND A/O X1. ON ROOM AIR TOLERATING WELL. NO SOB NOTED. NOT IN DISTRESS. IN NO SIGNS OF PAIN OR DISCOMFORT VIA FLACC LEVEL OF PAIN. ON G-TUBE FEEDING OF JEVITY 1.2 AT 80ML/HR TOLERATING CURRENT SETTING WELL. WITH IV ACCESS AT THE LEFT UPPER ARM G20 SALINE LOCKED, PATENT AND INTACT. DUE MEDS GIVEN. SAFETY MEASURES IN PLACED. CALL LIGHT WITHIN REACH. BED ON LOWER LOCKED POSITION, SIDE RAILS UP X2. WILL ENDORSE TO NEXT SHIFT FOR JUNE.
--- NOTE | 2022-07-13 19:30 | NUR ---
RN OPENING NOTE PATIENT IN BED, EYES OPEN. PATIENT DOES NOT RESPOND VERBALLY. PATIENT IS ON RA, NO SOB OR RESPIRATORY DISTRESS. BREATHING EVEN AND UNLABORED. PATIENT HAS JEVITY 1.2 ONGOING AT 80 ML/HR THROUGH GT, 10 ML RESIDUAL ASPIRATED. FÁTIMA 20G IV ACCESS PATENT AND INTACT. PATIENT DOES NOT SEEM TO BE IN PAIN VIA FLACC. TEAGUE CATHETER PRESENT DRAINING URINE VIA GRAVITY. NOT IN ANY APPARENT DISTRESS. SAFETY MEASURES IN PLACE: BED LOCKED AND IN LOWEST POSITION, CALL LIGHT WITHIN REACH, SIDE RIALS UP. WILL MONITOR PATIENT CLOSELY.
[2022-07-13 20:00] VITALS: BP 126/78
[2022-07-13] MEDS: ATORVASTATIN 40 MG TABLET GT SCH (21:39)
[2022-07-14] MEDS: IPRATROPIUM NEB FS 0.5 MG/2.5 ML AMPUL.NEB NEB SCH ×7 (00:13→23:57)
[2022-07-14] MEDS: PHENYTOIN SUSP UDC 100 MG/4 ML UDC GT SCH ×3 (04:46→21:20)
--- NOTE | 2022-07-14 07:35 | NUR ---
MS RN OPENING NOTE RECEIVED PATIENT IN BED, EYES OPEN. PATIENT DOES NOT RESPOND VERBALLY. RESPONSIVE TO SOUND AND TOUCH. PATIENT IS ON RA SATURATING AT 94-96%, NO SOB OR RESPIRATORY DISTRESS NOTED. BREATHING EVEN AND UNLABORED. PATIENT IS BEDBOUND, TOTAL ADL ASSISTANCE. PATIENT HAS JEVITY 1.2 ONGOING AT 80 ML/HR THROUGH GT, 10 ML RESIDUAL ASPIRATED. FÁTIMA 20G IV ACCESS PATENT AND INTACT. PATIENT DOES NOT SEEM TO BE IN PAIN PER FLACC ASSESSMENT. TEAGUE CATHETER PRESENT DRAINING CLEAR YELLOW URINE VIA GRAVITY. SAFETY MEASURES IN PLACE: BED LOCKED AT THE LOWEST POSITION, CALL LIGHT AND TRAY TABLE WITHIN REACH, SIDE RAILS UP 3X. WILL MONITOR PATIENT CLOSELY DURING MY SHIFT. .
[2022-07-14 08:00] VITALS: BP 128/76
--- NOTE | 2022-07-14 08:03 | NUR ---
RN CLOSING NOTE PATIENT IN BED, EYES OPEN. PATIENT DOES NOT RESPOND VERBALLY. PATIENT IS ON RA, NO SOB OR RESPIRATORY DISTRESS. BREATHING EVEN AND UNLABORED. PATIENT HAS JEVITY 1.2 ONGOING AT 80 ML/HR THROUGH GT, TOLERATED WELL DURING THE SHIFT. FÁTIMA 20G IV ACCESS PATENT AND INTACT. PATIENT DOES NOT SEEM TO BE IN PAIN VIA FLACC. TEAGUE CATHETER PRESENT DRAINING YELLOW URINE VIA GRAVITY. NOT IN ANY APPARENT DISTRESS. SAFETY MEASURES IN PLACE: BED LOCKED AND IN LOWEST POSITION, CALL LIGHT WITHIN REACH, SIDE RIALS UP. ALL NEEDS MET AND ATTENDED. ALL ORDERS CARRIED OUT. WILL ENDORSE TO DAY SHIFT NURSE FOR JUNE.
[2022-07-14] MEDS: PANTOPRAZOLE 40 MG/PACK PACK GT SCH (08:29)
[2022-07-14] MEDS: PROPRANOLOL HCL 10 MG TABLET GT SCH ×2 (08:30→17:05)
[2022-07-14] MEDS: POLYETHYLENE GLYCOL 3350 17 GM POWD.PACK GT SCH (08:30)
[2022-07-14] MEDS: LACTOBACILLUS RHAMNOSUS GG 1 EACH CAP.SPRINK GT SCH (08:30)
[2022-07-14] MEDS: OLANZAPINE 10 MG TABLET GT SCH ×2 (08:30→17:04)
[2022-07-14] MEDS: QUETIAPINE FUMARATE 25 MG TABLET GT SCH ×2 (08:31→17:05)
[2022-07-14] MEDS: DOCUSATE SODIUM LIQ 100 MG/10 ML UDC GT SCH ×2 (08:31→17:04)
[2022-07-14] MEDS: FLUOXETINE HCL 20 MG CAPSULE GT SCH (08:31)
[2022-07-14] MEDS: MULTIVIT W/MINERALS 1 TAB TABLET GT SCH (08:31)
[2022-07-14] MEDS: CHOLECALCIFEROL 1,000 UNIT TABLET (VIT D3) GT SCH (08:32)
[2022-07-14] MEDS: PRIMIDONE 250 MG TABLET GT SCH ×3 (08:32→17:04)
[2022-07-14] MEDS: ASPIRIN 81 MG TAB.CHEW GT SCH (08:33)
[2022-07-14] MEDS: ENOXAPARIN SODIUM 40 MG/0.4 ML DISP.SYRIN SQ SCH (08:34)
[2022-07-14] MEDS: POLYVINYL ALCOHOL 15 ML BOTTLE EACHEYE SCH ×4 (08:43→21:22)
--- NOTE | 2022-07-14 08:53 | NUR ---
RN NOTES DVT SCORE OF 5, PLACED DVT PUMPS.
[2022-07-14] MEDS: ACETAMINOPHEN 650 MG/20.3 ML UDC GT SCH ×2 (12:47→21:20)
[2022-07-14] MEDS: JEVITY 1.2 CAL 1,000 ML BOTTLE GT PRN (15:58)
[2022-07-14 16:04] VITALS: BP 112/65
--- NOTE | 2022-07-14 18:42 | NUR ---
MS RN CLOSING NOTE PATIENT IN BED, CALM, OPENS EYES. PATIENT DOES NOT RESPOND VERBALLY. RESPONSIVE TO SOUND AND TOUCH. PATIENT IS ON RA SATURATING AT 96%, NO SOB OR RESPIRATORY DISTRESS NOTED. BREATHING EVEN AND UNLABORED. PATIENT IS BEDBOUND, TOTAL ADL ASSISTANCE. PATIENT HAS JEVITY 1.2 ONGOING AT 80 ML/HR THROUGH GT, 10 ML RESIDUAL ASPIRATED. FÁTIMA 20G IV ACCESS PATENT AND INTACT. PATIENT DOES NOT SEEM TO BE IN PAIN PER FLACC ASSESSMENT. TEAUGE CATHETER PRESENT DRAINING CLEAR YELLOW URINE VIA GRAVITY, 700 CC OUT. SAFETY MEASURES MAINTAINED: BED LOCKED AT THE LOWEST POSITION, CALL LIGHT AND TRAY TABLE WITHIN REACH, SIDE RAILS UP 3X. WILL ENDORSE TO THE WORK[employer]ALS CONSULTANT..
[2022-07-14 20:00] VITALS: BP 100/54
--- NOTE | 2022-07-14 20:30 | NUR ---
MS RN OPENING NOTES RECEIVED PATIENT AWAKE IN BED. NON VERBAL . PATIENT IS ON RA SATURATING AT 97%, NO SOB OR RESPIRATORY DISTRESS NOTED. BREATHING EVEN AND UNLABORED. ON JEVITY 1.2 ONGOING AT 80 ML/HR THROUGH GT. FÁTIMA 20G IV ACCESS PATENT AND INTACT. TEAGUE CATHETER INTACT DRAINING CLEAR YELLOW URINE VIA GRAVITY. ALL SAFETY MEASURES MAINTAINED: BED LOCKED AT THE LOWEST POSITION, CALL LIGHT AND TRAY TABLE WITHIN REACH, SIDE RAILS UP 3X. HEAD OF THE BED ELEVATED FOR ASPIRATION PRECAUTION. WILL CONTINUE TO MONITOR.
[2022-07-14] MEDS: ATORVASTATIN 40 MG TABLET GT SCH (22:15)
[2022-07-15] MEDS: IPRATROPIUM NEB FS 0.5 MG/2.5 ML AMPUL.NEB NEB SCH ×6 (03:43→23:27)
[2022-07-15] MEDS: PHENYTOIN SUSP UDC 100 MG/4 ML UDC GT SCH ×3 (04:09→22:31)
[2022-07-15] MEDS: JEVITY 1.2 CAL 1,000 ML BOTTLE GT PRN ×2 (05:14→17:34)
--- NOTE | 2022-07-15 06:35 | NUR ---
MS RN CLOSING NOTES PATIENT AWAKE IN BED. NON VERBAL . PATIENT IS ON RA SATURATING AT 96%, NO SOB OR RESPIRATORY DISTRESS NOTED. BREATHING EVEN AND UNLABORED. ON JEVITY 1.2 ONGOING AT 80 ML/HR . FÁTIMA 20G IV ACCESS PATENT AND INTACT. TEAGUE CATHETER INTACT DRAINING CLEAR YELLOW URINE VIA GRAVITY. ALL DUE MEDS GIVEN ORDERED.ALL SAFETY MEASURES MAINTAINED: BED LOCKED AT THE LOWEST POSITION, CALL LIGHT AND TABLE WITHIN REACH, SIDE RAILS UP 3X. HEAD OF THE BED ELEVATED FOR ASPIRATION PRECAUTION. WILL ENDORSE FOR JUNE.
--- NOTE | 2022-07-15 06:35 | NUR ---
MS RN NOTES Patient in bed alert eyes open, mumbles when asked his name. No acute distress noted. Breathing unlabored. IV access patent and intact, no redness, no swelling noted. Gtube feeding patent and intact running Jevity 1.2 @80ml/hr, tolerating well. Holliday catheter patent and intact draining well with clear yellow urine. Head of bed elevated. Safety measures in place. Call light within reach. Will continue to monitor accordingly. Addendum: 07/15/22 at 1715 by DAVID RAY RN error-disregard above notes
--- NOTE | 2022-07-15 07:35 | NUR ---
MS RN NOTES Patient in bed alert eyes open, mumbles when asked his name. No acute distress noted. Breathing unlabored. IV access patent and intact, no redness, no swelling noted. Gtube feeding patent and intact running Jevity 1.2 @80ml/hr, tolerating well. Holliday catheter patent and intact draining well with clear yellow urine. Head of bed elevated. Safety measures in place. Call light within reach. Will continue to monitor accordingly.
[2022-07-15 08:00] VITALS: BP 114/68
[2022-07-15] MEDS: ENOXAPARIN SODIUM 40 MG/0.4 ML DISP.SYRIN SQ SCH (08:48)
[2022-07-15] MEDS: OLANZAPINE 10 MG TABLET GT SCH ×2 (08:48→17:26)
[2022-07-15] MEDS: DOCUSATE SODIUM LIQ 100 MG/10 ML UDC GT SCH ×2 (08:48→17:25)
[2022-07-15] MEDS: PANTOPRAZOLE 40 MG/PACK PACK GT SCH (08:48)
[2022-07-15] MEDS: CHOLECALCIFEROL 1,000 UNIT TABLET (VIT D3) GT SCH (08:49)
[2022-07-15] MEDS: LACTOBACILLUS RHAMNOSUS GG 1 EACH CAP.SPRINK GT SCH (08:49)
[2022-07-15] MEDS: ASPIRIN 81 MG TAB.CHEW GT SCH (08:49)
[2022-07-15] MEDS: FLUOXETINE HCL 20 MG CAPSULE GT SCH (08:49)
[2022-07-15] MEDS: PRIMIDONE 250 MG TABLET GT SCH ×3 (08:49→17:26)
[2022-07-15] MEDS: MULTIVIT W/MINERALS 1 TAB TABLET GT SCH (08:49)
[2022-07-15] MEDS: QUETIAPINE FUMARATE 25 MG TABLET GT SCH ×2 (08:50→17:25)
[2022-07-15] MEDS: PROPRANOLOL HCL 10 MG TABLET GT SCH ×2 (08:50→17:25)
[2022-07-15] MEDS: POLYETHYLENE GLYCOL 3350 17 GM POWD.PACK GT SCH (08:52)
[2022-07-15] MEDS: POLYVINYL ALCOHOL 15 ML BOTTLE EACHEYE SCH ×4 (08:54→21:59)
[2022-07-15] MEDS: ACETAMINOPHEN 650 MG/20.3 ML UDC GT SCH ×2 (13:15→22:31)
[2022-07-15 16:00] VITALS: BP 123/66
--- NOTE | 2022-07-15 19:00 | NUR ---
MS RN CLOSING NOTES Patient in bed alert eyes open, mumbles when asked his name. No acute distress noted. Breathing unlabored. IV access patent and intact, no redness, no swelling noted. Gtube feeding patent and intact running Jevity 1.2 @80ml/hr, tolerating well. Holliday catheter patent and intact draining well with clear yellow urine. Head of bed elevated. Safety measures in place. Call light within reach. Needs attended and anticipated. Will endorse to night nurse for continuity of care
--- NOTE | 2022-07-15 19:51 | NUR ---
RT Received pt asleep and on room air. Q4 tx given and tolerated. SPO2 98%.
[2022-07-15 20:00] VITALS: BP 115/63
--- NOTE | 2022-07-15 20:09 | NUR ---
MS RN OPENING NOTE PATIENT IN BED WITH EYES OPEN, PATIENT MUMBLES BUT NOT CLEAR. PATIENT STABLE ON ROOM AIR, NO S/S OF DISTRESS OR SOB NOTED, BREATHING EVEN AND UNLABORED. NO S/S OF PAIN, PATIENT RESTING COMFORTABLY. PATIENT ON GT FEEDING JEVITY 1.2 @ 80 ML/HR X 24H. FÁTIMA #20G IV ACCESS INTACT AND PATENT. SAFETY MEASURES IN PLACE: CALL LIGHT WITHIN REACH, SIDE RAILS UP X 3, BED LOCKED IN LOWEST POSITION, BED ALARM ON. WILL CONTINUE TO MONITOR PATIENT
[2022-07-15] MEDS: ATORVASTATIN 40 MG TABLET GT SCH (22:31)
[2022-07-16] MEDS: IPRATROPIUM NEB FS 0.5 MG/2.5 ML AMPUL.NEB NEB SCH ×6 (03:09→23:35)
[2022-07-16] MEDS: PHENYTOIN SUSP UDC 100 MG/4 ML UDC GT SCH ×3 (05:32→21:12)
--- NOTE | 2022-07-16 06:26 | NUR ---
MS RN CLOSING NOTE PATIENT IN BED WITH EYES CLOSED, PATIENT ABLE TO OPEN EYES, MUMBLES BUT SPEECH NOT CLEAR. PATIENT STABLE ON ROOM AIR, NO S/S OF DISTRESS OR SOB NOTED, BREATHING EVEN AND UNLABORED. NO S/S OF PAIN, PATIENT RESTING COMFORTABLY. PATIENT ON GT FEEDING JEVITY 1.2 @ 80 ML/HR X 24H. FÁTIMA #20G IV ACCESS INTACT AND SALINE LOCKED. MEDICATIONS GIVEN ORDERED, PT NEEDS MET THROUGHOUT SHIFT. PATIENT TURNED Q2H, WOUND PHOTOS TAKEN. SAFETY MEASURES IN PLACE: CALL LIGHT WITHIN REACH, SIDE RAILS UP X 3, BED LOCKED IN LOWEST POSITION, BED ALARM ON. WILL ENDORSE TO DAYSHIFT NURSE FOR CONTINUITY OF CARE
[2022-07-16 08:00] VITALS: BP 119/64
--- NOTE | 2022-07-16 08:04 | NUR ---
RN OPENING NOTE PATIENT AWAKE IN BED RESTING. NON-VERBAL. NO S/S OF PAIN NOTED AT THIS TIME. ON ROOM AIR, NO DISTRESS OR SHORTNESS OF BREATH NOTED. IV ACCESS FÁTIMA #20G INTACT, PATENT AND FLUSHING WELL. FALL AND SAFETY MEASURES IN PLACE, BED ALARM ON, BED IN LOW AND LOCK POSITION, CALL LIGHT AND TABLE WITHIN EASY REACH, SIDE RAILS UP X2. WILL CONTINUE TO MONITOR.
[2022-07-16] MEDS: POLYETHYLENE GLYCOL 3350 17 GM POWD.PACK GT SCH (10:03)
[2022-07-16] MEDS: ENOXAPARIN SODIUM 40 MG/0.4 ML DISP.SYRIN SQ SCH (10:04)
[2022-07-16] MEDS: MULTIVIT W/MINERALS 1 TAB TABLET GT SCH (10:04)
[2022-07-16] MEDS: PRIMIDONE 250 MG TABLET GT SCH ×3 (10:04→17:03)
[2022-07-16] MEDS: LACTOBACILLUS RHAMNOSUS GG 1 EACH CAP.SPRINK GT SCH (10:04)
[2022-07-16] MEDS: PANTOPRAZOLE 40 MG/PACK PACK GT SCH (10:04)
[2022-07-16] MEDS: PROPRANOLOL HCL 10 MG TABLET GT SCH ×2 (10:05→17:02)
[2022-07-16] MEDS: DOCUSATE SODIUM LIQ 100 MG/10 ML UDC GT SCH ×2 (10:05→17:02)
[2022-07-16] MEDS: ASPIRIN 81 MG TAB.CHEW GT SCH (10:06)
[2022-07-16] MEDS: CHOLECALCIFEROL 1,000 UNIT TABLET (VIT D3) GT SCH (10:06)
[2022-07-16] MEDS: OLANZAPINE 10 MG TABLET GT SCH ×2 (10:06→17:03)
[2022-07-16] MEDS: QUETIAPINE FUMARATE 25 MG TABLET GT SCH ×2 (10:06→17:02)
[2022-07-16] MEDS: FLUOXETINE HCL 20 MG CAPSULE GT SCH (10:06)
[2022-07-16] MEDS: JEVITY 1.2 CAL 1,000 ML BOTTLE GT PRN (10:24)
[2022-07-16] MEDS: POLYVINYL ALCOHOL 15 ML BOTTLE EACHEYE SCH ×4 (10:25→21:13)
[2022-07-16] MEDS: ACETAMINOPHEN 650 MG/20.3 ML UDC GT SCH ×2 (12:44→21:12)
[2022-07-16 16:00] VITALS: BP 101/60
--- NOTE | 2022-07-16 19:36 | NUR ---
RN CLOSING NOTE PATIENT AWAKE IN BED RESTING. NON-VERBAL. NO S/S OF PAIN NOTED AT THIS TIME. ON ROOM AIR, NO DISTRESS OR SHORTNESS OF BREATH NOTED. IV ACCESS FÁTIMA #20G INTACT, PATENT AND FLUSHING WELL. SCHEDULE MEDICATIONS ADMINISTERED. FALL AND SAFETY MEASURES IN PLACE, BED ALARM ON, BED IN LOW AND LOCK POSITION, CALL LIGHT AND TABLE WITHIN EASY REACH, SIDE RAILS UP X2. WILL ENDORSE TO MATERIAL CONTROL ANALYST.
--- NOTE | 2022-07-16 19:37 | NUR ---
RN OPENING NOTE PATIENT AWAKE IN BED. EYE-OPENING, MUMBLING. NO S/S OF DISTRESS, BREATHING WITHOUT DIFFICULTY ON ROOM AIR. FÁTIMA #20 SL INTACT AND PATENT. SAFETY MEASURES IN PLACE: BED LOCKED AND AT LOWEST POSITION, RAILS UP X2, CALL AYALA WITHIN REACH. WILL CONTINUE TO MONITOR PATIENT. Addendum: 07/16/22 at 1941 by JOHN RHODES RN JEVITY 1.2 @80ML/HR
[2022-07-16 20:00] VITALS: BP 119/72
[2022-07-16] MEDS: ATORVASTATIN 40 MG TABLET GT SCH (21:12)
[2022-07-17] MEDS: IPRATROPIUM NEB FS 0.5 MG/2.5 ML AMPUL.NEB NEB SCH ×5 (03:36→20:48)
[2022-07-17] MEDS: PHENYTOIN SUSP UDC 100 MG/4 ML UDC GT SCH ×3 (05:26→21:56)
--- NOTE | 2022-07-17 06:21 | NUR ---
RN CLOSING NOTE PATIENT ASLEEP IN BED. EYE OPENING W/ MUMBLING. NO S/S OF DISTRESS, BREATHING WITHOUT DIFFICULTY ON ROOM AIR. FÁTIMA #20 SL INTACT AND PATENT. JEVITY 1.2 RUNNING AT 80ML/HR. SAFETY MEASURES IN PLACE: BED LOCKED AND IN PLACE, RAILS UP X3, CALL AYALA WITHIN REACH. WILL ENDORSE TO NEXT SHIFT FOR JUNE.
--- NOTE | 2022-07-17 07:15 | NUR ---
MS RN OPENING NOTE RECEIVED PATIENT IN BED, EYES OPEN. PATIENT DOES NOT RESPOND VERBALLY. RESPONSIVE TO SOUND AND TOUCH. PATIENT IS ON RA SATURATING AT 96%, NO SOB OR RESPIRATORY DISTRESS NOTED. BREATHING EVEN AND UNLABORED. PATIENT IS BEDBOUND, TOTAL ADL ASSISTANCE. PATIENT HAS JEVITY 1.2 ONGOING AT 80 ML/HR THROUGH GT, 10 ML RESIDUAL ASPIRATED. FÁTIMA 20G IV ACCESS PATENT AND INTACT. PATIENT DOES NOT SEEM TO BE IN PAIN PER FLACC ASSESSMENT. TEAGUE CATHETER PRESENT DRAINING CLEAR YELLOW URINE VIA GRAVITY. SAFETY MEASURES IN PLACE: BED LOCKED AT THE LOWEST POSITION, CALL LIGHT AND TRAY TABLE WITHIN REACH, SIDE RAILS UP 3X. WILL MONITOR PATIENT CLOSELY DURING MY SHIFT. .
[2022-07-17 08:00] VITALS: BP 140/74
[2022-07-17] MEDS ORDERED: GLUCERNA 1.2 1,000 ML BOTTLE NG PRN ×3 (08:00→08:30)
--- NOTE | 2022-07-17 08:00 | NUR ---
RN NOTES - CHANGED AND STARTED NEW TUBE FEEDING TO GLUCERNA I.2 80 ML/HR X 24 HOURS ORDERED BY MARCOS CARTAGENA. NOTIFIED DIETARY.
[2022-07-17] MEDS: GLUCERNA 1.2 1,000 ML BOTTLE NG PRN (09:42)
[2022-07-17] MEDS: QUETIAPINE FUMARATE 25 MG TABLET GT SCH ×2 (09:59→17:30)
[2022-07-17] MEDS: POLYVINYL ALCOHOL 15 ML BOTTLE EACHEYE SCH ×4 (09:59→21:59)
[2022-07-17] MEDS: FLUOXETINE HCL 20 MG CAPSULE GT SCH (09:59)
[2022-07-17] MEDS: POLYETHYLENE GLYCOL 3350 17 GM POWD.PACK GT SCH (09:59)
[2022-07-17] MEDS: PANTOPRAZOLE 40 MG/PACK PACK GT SCH (09:59)
[2022-07-17] MEDS: OLANZAPINE 10 MG TABLET GT SCH ×2 (10:00→17:31)
[2022-07-17] MEDS: PROPRANOLOL HCL 10 MG TABLET GT SCH ×2 (10:00→17:30)
[2022-07-17] MEDS: MULTIVIT W/MINERALS 1 TAB TABLET GT SCH (10:00)
[2022-07-17] MEDS: LACTOBACILLUS RHAMNOSUS GG 1 EACH CAP.SPRINK GT SCH (10:00)
[2022-07-17] MEDS: DOCUSATE SODIUM LIQ 100 MG/10 ML UDC GT SCH ×2 (10:00→17:29)
[2022-07-17] MEDS: CHOLECALCIFEROL 1,000 UNIT TABLET (VIT D3) GT SCH (10:00)
[2022-07-17] MEDS: PRIMIDONE 250 MG TABLET GT SCH ×3 (10:00→17:30)
[2022-07-17] MEDS: ASPIRIN 81 MG TAB.CHEW GT SCH (10:01)
[2022-07-17] MEDS: ENOXAPARIN SODIUM 40 MG/0.4 ML DISP.SYRIN SQ SCH (10:03)
[2022-07-17] MEDS: ACETAMINOPHEN 650 MG/20.3 ML UDC GT SCH ×2 (13:17→21:56)
[2022-07-17 16:00] VITALS: BP 110/67
--- NOTE | 2022-07-17 19:45 | NUR ---
MS RN OPENING NOTE RECEIVED PATIENT IN BED; AWAKE, NON-VERBAL. ON ROOM AIR; TOLERATING WELL. NOT IN ANY FORM OF RESPIRATORY DISTRESS. WITH IV ACCESS ON LEFT UPPER ARM 20g; PATENT, INTACT AND SALINE LOCKED. WITH G-TUBE IN PLACE; PATENT AND INTACT INFUSING WITH GLUCERNA 1.2 REGULATED @ 80 ML/HR. WITH TEAGUE CATHETER IN PLACE, DRAINING TO GRAVITY WITH CLEAR YELLOW URINE OUTPUT. FALL AND SAFETY MEASURES IMPLEMENTED: CALL LIGHT AND TABLE WITHIN REACH, SIDE RAILS UP X 2, BED IN LOWEST LOCKED POSITION. WILL CONTINUE PLAN OF CARE.
[2022-07-17 20:00] VITALS: BP 120/73
[2022-07-17 20:15] VITALS: BP 120/73
--- NOTE | 2022-07-17 20:15 | NUR ---
MS RN CLOSING NOTE PATIENT IN BED, CALM, OPENS EYES. PATIENT DOES NOT RESPOND VERBALLY. RESPONSIVE TO SOUND AND TOUCH. PATIENT IS ON RA SATURATING AT 96%, NO SOB OR RESPIRATORY DISTRESS NOTED. BREATHING EVEN AND UNLABORED. PATIENT IS BEDBOUND, TOTAL ADL ASSISTANCE. PATIENT HAS GLUCERNA 1.2 ONGOING AT 80 ML/HR X 24 HOURS THROUGH GT. WITH FÁTIMA 20G IV ACCESS PATENT AND INTACT. PATIENT DOES NOT SEEM TO BE IN PAIN PER FLACC ASSESSMENT. TEAGUE CATHETER PRESENT DRAINING CLEAR YELLOW URINE VIA GRAVITY. WOUND CARE PROVIDED ORDERED. SAFETY MEASURES MAINTAINED: BED LOCKED AT THE LOWEST POSITION, CALL LIGHT AND TRAY TABLE WITHIN REACH, SIDE RAILS UP 3X. WILL ENDORSE TO THE [employer]RAFTER CONSTRUCTION.. Addendum: 07/17/22 at 2017 by VINCENT KRISHNAN RN CORRECT TIME: 1904
[2022-07-17] MEDS: ATORVASTATIN 40 MG TABLET GT SCH (21:56)
[2022-07-18] MEDS: IPRATROPIUM NEB FS 0.5 MG/2.5 ML AMPUL.NEB NEB SCH ×6 (00:03→20:11)
[2022-07-18] MEDS: PHENYTOIN SUSP UDC 100 MG/4 ML UDC GT SCH ×3 (05:36→21:26)
[2022-07-18] MEDS: GLUCERNA 1.2 1,000 ML BOTTLE NG PRN (06:34)
--- NOTE | 2022-07-18 06:50 | NUR ---
MS RN CLOSING NOTE PATIENT IN BED; AWAKE, NON-VERBAL. BREATHING EVEN AND NONLABORED. STABLE ON ROOM AIR. IN NO APPARENT DISTRESS. WITH IV ACCESS ON LEFT UPPER ARM 20g; PATENT, INTACT AND SALINE LOCKED. WITH G-TUBE IN PLACE; PATENT AND INTACT INFUSING WITH GLUCERNA 1.2 REGULATED @ 80 ML/HR. WITH TEAGUE CATHETER IN PLACE, DRAINING TO GRAVITY WITH CLEAR YELLOW URINE OUTPUT. FALL AND SAFETY MEASURES MAINTAINED: HEAD OF BED ELEVATED, CALL LIGHT AND TABLE WITHIN REACH, SIDE RAILS UP X 2, BED IN LOWEST LOCKED POSITION. ENDORSED TO SOILA MACHUCA FOR JUNE.
--- NOTE | 2022-07-18 07:38 | NUR ---
MS RN OPENING NOTE RECEIVED PATIENT IN LYING IN BED WITH HEAD OF BED ELEVATED. PATIENT DOES NOT RESPOND VERBALLY BUT OPENS EYES AND MUMBLES TO SOUND AND TOUCH. PATIENT IS ON RA SATURATING AT 97%, NO SOB OR RESPIRATORY DISTRESS NOTED. BREATHING EVEN AND UNLABORED. PATIENT IS BEDBOUND, TOTAL ADL ASSISTANCE. PATIENT HAS GLUCERNA 1.2 ONGOING AT 80 ML/HR THROUGH GT, 10 ML RESIDUAL ASPIRATED. FÁTIMA 20G IV ACCESS PATENT AND INTACT, FLUSHES WELL. PATIENT DOES NOT SEEM TO BE IN PAIN PER FLACC ASSESSMENT. TEAGUE CATHETER PRESENT DRAINING CLEAR YELLOW URINE VIA GRAVITY. SAFETY MEASURES IN PLACE: BED LOCKED AT THE LOWEST POSITION, CALL LIGHT AND TRAY TABLE WITHIN REACH, SIDE RAILS UP 3X. WILL MONITOR PATIENT CLOSELY DURING MY SHIFT.
[2022-07-18 08:00] VITALS: BP 100/58
[2022-07-18] MEDS: ENOXAPARIN SODIUM 40 MG/0.4 ML DISP.SYRIN SQ SCH (09:08)
[2022-07-18] MEDS: CHOLECALCIFEROL 1,000 UNIT TABLET (VIT D3) GT SCH (09:16)
[2022-07-18] MEDS: ASPIRIN 81 MG TAB.CHEW GT SCH (09:16)
[2022-07-18] MEDS: LACTOBACILLUS RHAMNOSUS GG 1 EACH CAP.SPRINK GT SCH (09:16)
[2022-07-18] MEDS: DOCUSATE SODIUM LIQ 100 MG/10 ML UDC GT SCH ×2 (09:16→17:17)
[2022-07-18] MEDS: PRIMIDONE 250 MG TABLET GT SCH ×3 (09:16→17:18)
[2022-07-18] MEDS: POLYETHYLENE GLYCOL 3350 17 GM POWD.PACK GT SCH (09:16)
[2022-07-18] MEDS: OLANZAPINE 10 MG TABLET GT SCH ×2 (09:16→17:18)
[2022-07-18] MEDS: PANTOPRAZOLE 40 MG/PACK PACK GT SCH (09:16)
[2022-07-18] MEDS: MULTIVIT W/MINERALS 1 TAB TABLET GT SCH (09:17)
[2022-07-18] MEDS: PROPRANOLOL HCL 10 MG TABLET GT SCH ×2 (09:17→17:18)
[2022-07-18] MEDS: FLUOXETINE HCL 20 MG CAPSULE GT SCH (09:17)
[2022-07-18] MEDS: QUETIAPINE FUMARATE 25 MG TABLET GT SCH ×2 (09:17→17:17)
[2022-07-18] MEDS: POLYVINYL ALCOHOL 15 ML BOTTLE EACHEYE SCH ×4 (09:18→21:30)
[2022-07-18] MEDS: ACETAMINOPHEN 650 MG/20.3 ML UDC GT SCH ×2 (12:36→21:26)
--- NOTE | 2022-07-18 18:50 | NUR ---
MS RN CLOSING NOTE PATIENT IN BED, CALM, OPENS EYES. PATIENT DOES NOT RESPOND VERBALLY. RESPONSIVE TO SOUND AND TOUCH. PATIENT IS ON RA SATURATING AT 97%, NO SOB OR RESPIRATORY DISTRESS NOTED. BREATHING EVEN AND UNLABORED. PATIENT IS BEDBOUND, TOTAL ADL ASSISTANCE. PATIENT HAS GLUCERNA 1.2 ONGOING AT 80 ML/HR X 24 HOURS THROUGH GT. WITH FÁTIMA 20G IV ACCESS PATENT AND INTACT. PATIENT DOES NOT SEEM TO BE IN PAIN PER FLACC ASSESSMENT. TEAGUE CATHETER PRESENT DRAINING CLEAR YELLOW URINE VIA GRAVITY. WOUND CARE PROVIDED ORDERED. ALL DUE MEDS AND NEEDS ATTENDED. SAFETY MEASURES MAINTAINED: BED LOCKED AT THE LOWEST POSITION, CALL LIGHT AND TRAY TABLE WITHIN REACH, SIDE RAILS UP 3X. WILL ENDORSE TO THE CONTACT CENTER AGENT..
--- NOTE | 2022-07-18 19:45 | NUR ---
MS RN OPENING NOTE RECEIVED PATIENT IN BED WITH EYES CLOSED BUT EASY TO AROUSED,NON-VERBAL. ON ROOM AIR CURT WELL,NO SIGN SOB/DISTRESS NOTED,WITH IV ACCESS ON LEFT UPPER ARM 20g; PATENT, INTACT AND SALINE LOCKED.PT GT FEEDING GLUCERNA 1.2 @ 80 ML/HR CURT WELL,NO RESIDUAL NOTED,WITH TEAGUE CATHETER IN PLACE, DRAINING TO GRAVITY WITH CLEAR YELLOW URINE NOTED,FALL AND SAFETY MEASURES IMPLEMENTED: CALL LIGHT AND TABLE WITHIN REACH, SIDE RAILS UP X 2, BED IN LOWEST LOCKED POSITION. WILL CONTINUE PLAN OF CARE.
[2022-07-18 20:00] VITALS: BP 123/73
[2022-07-18] MEDS: ATORVASTATIN 40 MG TABLET GT SCH (21:26)
[2022-07-19] MEDS: IPRATROPIUM NEB FS 0.5 MG/2.5 ML AMPUL.NEB NEB SCH ×7 (00:21→23:43)
[2022-07-19] MEDS: PHENYTOIN SUSP UDC 100 MG/4 ML UDC GT SCH ×3 (05:43→21:04)
--- NOTE | 2022-07-19 06:30 | NUR ---
MS RN CLOSING NOTES; PATIENT IN BED WITH EYES CLOSED BUT EASY TO AROUSED,NON-VERBAL. ON ROOM AIR CURT WELL,NO SIGN SOB/DISTRESS NOTED,DUE MEDS GIVEN ORDER,ALL NEEDS ATTENDED,WITH IV ACCESS ON LEFT UPPER ARM 20g; PATENT, INTACT AND PATENT SALINE LOCKED.PT GT FEEDING GLUCERNA 1.2 @ 80 ML/HR CURT WELL,NO RESIDUAL NOTED,WITH TEAGUE CATHETER IN PLACE, DRAINING TO GRAVITY WITH CLEAR YELLOW URINE OUTPUT 800ML,FALL AND SAFETY MEASURES IMPLEMENTED: CALL LIGHT AND TABLE WITHIN REACH, SIDE RAILS UP X 2, BED IN LOWEST LOCKED POSITION. WILL ENDORSED TO NEXT SHIFT.
--- NOTE | 2022-07-19 07:30 | NUR ---
MS RN OPENING NOTE RECEIVED PATIENT IN LYING IN BED , AWAKE NON VERBAL . OPENS EYES AND MUMBLES TO SOUND AND TOUCH. PATIENT IS ON ROOM AIR SATURATING AT 98 %, NO SOB OR RESPIRATORY DISTRESS NOTED. BREATHING EVEN AND UNLABORED. PATIENT IS BEDBOUND, TOTAL ADL ASSISTANCE. PATIENT HAS GLUCERNA 1.2 ONGOING AT 80 ML/HR THROUGH GT, 10 ML RESIDUAL ASPIRATED. FÁTIMA 20G IV ACCESS PATENT AND INTACT, FLUSHES WELL. NO S/S OF PAIN AND DISCOMFORT NOTED . TEAGUE CATHETER PRESENT DRAINING CLEAR YELLOW URINE VIA GRAVITY. SAFETY MEASURES IN PLACE: BED LOCKED AT THE LOWEST POSITION, CALL LIGHT AND TRAY TABLE WITHIN REACH, SIDE RAILS UP 3X. WILL MONITOR PATIENT CLOSELY DURING MY SHIFT.
[2022-07-19 08:00] VITALS: BP 122/70
[2022-07-19] MEDS: CHOLECALCIFEROL 1,000 UNIT TABLET (VIT D3) GT SCH (09:41)
[2022-07-19] MEDS: POLYETHYLENE GLYCOL 3350 17 GM POWD.PACK GT SCH (09:41)
[2022-07-19] MEDS: DOCUSATE SODIUM LIQ 100 MG/10 ML UDC GT SCH ×2 (09:41→16:29)
[2022-07-19] MEDS: FLUOXETINE HCL 20 MG CAPSULE GT SCH (09:42)
[2022-07-19] MEDS: LACTOBACILLUS RHAMNOSUS GG 1 EACH CAP.SPRINK GT SCH (09:42)
[2022-07-19] MEDS: QUETIAPINE FUMARATE 25 MG TABLET GT SCH ×2 (09:42→16:30)
[2022-07-19] MEDS: PANTOPRAZOLE 40 MG/PACK PACK GT SCH (09:42)
[2022-07-19] MEDS: MULTIVIT W/MINERALS 1 TAB TABLET GT SCH (09:42)
[2022-07-19] MEDS: OLANZAPINE 10 MG TABLET GT SCH ×2 (09:42→16:35)
[2022-07-19] MEDS: PRIMIDONE 250 MG TABLET GT SCH ×3 (09:42→16:35)
[2022-07-19] MEDS: PROPRANOLOL HCL 10 MG TABLET GT SCH ×2 (09:43→16:31)
[2022-07-19] MEDS: ASPIRIN 81 MG TAB.CHEW GT SCH (09:44)
[2022-07-19] MEDS: ENOXAPARIN SODIUM 40 MG/0.4 ML DISP.SYRIN SQ SCH (09:47)
[2022-07-19] MEDS: POLYVINYL ALCOHOL 15 ML BOTTLE EACHEYE SCH ×4 (09:52→21:04)
[2022-07-19] MEDS: GLUCERNA 1.2 1,000 ML BOTTLE NG PRN (14:57)
[2022-07-19 16:00] VITALS: BP 124/71
[2022-07-19] MEDS: ACETAMINOPHEN 650 MG/20.3 ML UDC GT SCH ×2 (16:05→21:04)
--- NOTE | 2022-07-19 18:47 | NUR ---
MS SVEN CHERRY NOTE PATIENT IN LYING IN BED , AWAKE NON VERBAL . OPENS EYES AND MUMBLES TO SOUND AND TOUCH. PATIENT IS ON ROOM AIR SATURATING AT 98 %, NO SOB OR RESPIRATORY DISTRESS NOTED.AL DUE MEDS GIVEN BREATHING EVEN AND UNLABORED. PATIENT IS BEDBOUND, TOTAL ADL ASSISTANCE. PATIENT HAS GLUCERNA 1.2 ONGOING AT 80 ML/HR THROUGH GT, . FÁTIMA 20G IV ACCESS PATENT AND INTACT, FLUSHES WELL. NO S/S OF PAIN AND DISCOMFORT NOTED . TEAGUE CATHETER PRESENT DRAINING CLEAR YELLOW URINE VIA GRAVITY. SAFETY MEASURES IN PLACE: BED LOCKED AT THE LOWEST POSITION, CALL LIGHT AND TRAY TABLE WITHIN REACH, SIDE RAILS UP 3X. WILL ENDORSED FOR THE NEXT SHIFT
--- NOTE | 2022-07-19 19:45 | NUR ---
MS SVEN CHERRY NOTE PATIENT IN LYING IN BED , AWAKE NON VERBAL . OPENS EYES AND MUMBLES TO SOUND AND TOUCH. PATIENT IS ON ROOM AIR SATURATING AT 98 %, NO SOB OR RESPIRATORY DISTRESS NOTED.AL DUE MEDS GIVEN BREATHING EVEN AND UNLABORED. PATIENT IS BEDBOUND, TOTAL ADL ASSISTANCE. PATIENT HAS GLUCERNA 1.2 ONGOING AT 80 ML/HR THROUGH GT, . FÁTIMA 20G IV ACCESS PATENT AND INTACT, FLUSHES WELL. NO S/S OF PAIN AND DISCOMFORT NOTED . TEAGUE CATHETER PRESENT DRAINING CLEAR YELLOW URINE VIA GRAVITY. SAFETY MEASURES IN PLACE: BED LOCKED AT THE LOWEST POSITION, CALL LIGHT AND TRAY TABLE WITHIN REACH, SIDE RAILS UP 3X. WILL ENDORSED FOR THE NEXT SHIFT Addendum: 07/19/22 at 1945 by KAYY RHODES RN opening
[2022-07-19 20:00] VITALS: BP 114/66
[2022-07-19] MEDS: ATORVASTATIN 40 MG TABLET GT SCH (21:04)
[2022-07-20] MEDS: IPRATROPIUM NEB FS 0.5 MG/2.5 ML AMPUL.NEB NEB SCH ×5 (04:03→20:31)
[2022-07-20] MEDS: PHENYTOIN SUSP UDC 100 MG/4 ML UDC GT SCH ×3 (05:49→20:25)
--- NOTE | 2022-07-20 06:17 | NUR ---
Pt recvd on room air, SpO2 >92%. No SOB or respiratory distress noted throughout shift. Neb tx given and gay well with no adverse reaction.
[2022-07-20 06:27] LABS: BASOPHILS % (AUTO) 0.7 % (0.0-2.0); EOSINOPHILS % (AUTO) 1.9 % (0.0-6.0); HEMATOCRIT 36 % (39-51); HEMOGLOBIN 11.4 g/dL (13.5-17.5); LYMPHOCYTES # (AUTO) 1.4 K/uL (0.8-4.8); LYMPHOCYTES % (AUTO) 23.5 % (20.0-44.0); MEAN CORPUSCULAR HGB CONC 32 g/dl (31.0-36.0); MEAN CORPUSCULAR VOLUME 73 fL (80-96); MONOCYTES % (AUTO) 15.5 % (2.0-12.0); NEUTROPHILS # (AUTO) 3.6 K/uL (1.8-8.9); NEUTROPHILS % (AUTO) 58.4 % (43.0-81.0); PLATELET COUNT (AUTO) 299 K/uL (150-450); RED BLOOD CELL COUNT(AUTO) 4.92 MIL/uL (4.5-6.0); WHITE BLOOD COUNT (AUTO) 6.2 K/uL (4.3-11.0)
--- NOTE | 2022-07-20 06:42 | NUR ---
MS RN CLOSING NOTE PATIENT IN LYING IN BED , AWAKE NON VERBAL ,OPENS EYES AND MUMBLES TO SOUND AND TOUCH. PATIENT IS ON ROOM AIR SATURATING AT 92-94 %, NO SOB OR RESPIRATORY DISTRESS NOTED.ALL DUE MEDS GIVEN BREATHING EVEN AND UNLABORED. PATIENT IS BEDBOUND, TOTAL ADL ASSISTANCE. PATIENT HAS GLUCERNA 1.2 ONGOING AT 80 ML/HR THROUGH GT TOLERATING WELL. FÁTIMA 20G IV ACCESS PATENT AND INTACT, FLUSHES WELL. NO S/S OF PAIN AND DISCOMFORT NOTED . TEAGUE CATHETER PRESENT DRAINING CLEAR YELLOW URINE VIA GRAVITY. SAFETY MEASURES IN PLACE: BED LOCKED AT THE LOWEST POSITION, CALL LIGHT AND TRAY TABLE WITHIN REACH, SIDE RAILS UP 3X. WILL ENDORSED TO DAY SHIFT.
[2022-07-20 06:48] LABS: CALCIUM, SERUM 9.2 mg/dL (8.5-10.1); CREATININE 1.1 mg/dL (0.6-1.3); PHOSPHORUS 3.2 mg/dL (2.5-4.9); POTASSIUM 3.8 mmol/L (3.5-5.1)
--- NOTE | 2022-07-20 07:30 | NUR ---
MS RN OPENING NOTES RECEIVED PATIENT ON BED AWAKE AND A/O X1. ON ROOM AIR TOLERATING WELL. NO SOB NOTED. NOT IN DISTRESS. IN NO SIGNS OF PAIN OR DISCOMFORT VIA FLACC LEVEL OF PAIN. ON G-TUBE FEEDING OF GLUCERNA 1.2 AT 80ML/HR RUNNING WELL. WITH TEAGUE CATHETER IN PLACED DRAINING CLEAR YELLOW URINE. WITH IV ACCESS AT THE LEFT UPPER ARM G20 SALINE LOCKED, PATENT AND INTACT. SAFETY MEASURES IN PLACED. CALL LIGHT WITHIN REACH. BED ON LOWER LOCKED POSITION, SIDE RAILS UP X2. WILL CONTINUE TO MONITOR.
[2022-07-20] MEDS: OLANZAPINE 10 MG TABLET GT SCH ×2 (08:32→17:15)
[2022-07-20] MEDS: POLYETHYLENE GLYCOL 3350 17 GM POWD.PACK GT SCH (08:32)
[2022-07-20] MEDS: LACTOBACILLUS RHAMNOSUS GG 1 EACH CAP.SPRINK GT SCH (08:32)
[2022-07-20] MEDS: FLUOXETINE HCL 20 MG CAPSULE GT SCH (08:32)
[2022-07-20] MEDS: CHOLECALCIFEROL 1,000 UNIT TABLET (VIT D3) GT SCH (08:32)
[2022-07-20] MEDS: PRIMIDONE 250 MG TABLET GT SCH ×3 (08:32→17:14)
[2022-07-20] MEDS: ENOXAPARIN SODIUM 40 MG/0.4 ML DISP.SYRIN SQ SCH (08:32)
[2022-07-20] MEDS: DOCUSATE SODIUM LIQ 100 MG/10 ML UDC GT SCH ×2 (08:33→17:12)
[2022-07-20] MEDS: MULTIVIT W/MINERALS 1 TAB TABLET GT SCH (08:33)
[2022-07-20] MEDS: PANTOPRAZOLE 40 MG/PACK PACK GT SCH (08:33)
[2022-07-20] MEDS: PROPRANOLOL HCL 10 MG TABLET GT SCH ×2 (08:33→17:14)
[2022-07-20] MEDS: QUETIAPINE FUMARATE 25 MG TABLET GT SCH ×2 (08:33→17:14)
[2022-07-20] MEDS: ASPIRIN 81 MG TAB.CHEW GT SCH (08:33)
[2022-07-20] MEDS: POLYVINYL ALCOHOL 15 ML BOTTLE EACHEYE SCH ×4 (08:34→20:24)
[2022-07-20 11:19] LABS: EOSINOPHILS % (MANUAL) 2 % (0-4); LYMPHOCYTES % (MANUAL) 30 % (16-48); MONOCYTES % (MANUAL) 14 % (0-11.0); NEUTROPHILS % (MANUAL) 54 (42-76)
[2022-07-20] MEDS: ACETAMINOPHEN 650 MG/20.3 ML UDC GT SCH ×2 (12:27→20:25)
[2022-07-20] MEDS: GLUCERNA 1.2 1,000 ML BOTTLE NG PRN (17:36)
--- NOTE | 2022-07-20 18:59 | NUR ---
MS RN CLOSING NOTES PATIENT ON BED AWAKE AND A/O X1, NONVERBAL. ON ROOM AIR TOLERATING WELL. NO SOB NOTED. NOT IN DISTRESS. IN NO SIGNS OF PAIN OR DISCOMFORT VIA FLACC LEVEL OF PAIN. ON G-TUBE FEEDING OF GLUCERNA 1.2 AT 80ML/HR RUNNING WELL. WITH TEAGUE CATHETER IN PLACED DRAINING CLEAR YELLOW URINE. WITH IV ACCESS AT THE LEFT UPPER ARM G20 SALINE LOCKED, PATENT AND INTACT. SAFETY MEASURES IN PLACED. CALL LIGHT WITHIN REACH. BED ON LOWER LOCKED POSITION, SIDE RAILS UP X2. WILL ENDORSE TO NEXT SHIFT FOR JUNE.
--- NOTE | 2022-07-20 19:49 | NUR ---
MS RN OPENING NOTES PATIENT ON BED AWAKE AND A/O X1, NONVERBAL. ON ROOM AIR TOLERATING WELL. NO SOB NOTED. NOT IN DISTRESS. IN NO SIGNS OF PAIN OR DISCOMFORT VIA FLACC LEVEL OF PAIN. ON G-TUBE FEEDING OF GLUCERNA 1.2 AT 80ML/HR RUNNING WELL. WITH TEAGUE CATHETER IN PLACED DRAINING CLEAR YELLOW URINE. WITH IV ACCESS AT THE LEFT UPPER ARM G20 SALINE LOCKED, PATENT AND INTACT. SAFETY MEASURES IN PLACED. CALL LIGHT WITHIN REACH. BED ON LOWER LOCKED POSITION, SIDE RAILS UP X2.
[2022-07-20 20:00] VITALS: BP 125/71
[2022-07-20] MEDS: ATORVASTATIN 40 MG TABLET GT SCH (21:19)
--- NOTE | 2022-07-20 21:19 | NUR ---
RN NOTES PT NOTED TO BE SATURATION 90% ON ROOM AIR PLACED ON 2L VIA NS TOLERATING WELL.
[2022-07-21] MEDS: IPRATROPIUM NEB FS 0.5 MG/2.5 ML AMPUL.NEB NEB SCH ×8 (00:06→23:11)
[2022-07-21] MEDS: PHENYTOIN SUSP UDC 100 MG/4 ML UDC GT SCH ×3 (04:17→21:16)
[2022-07-21 08:00] VITALS: BP 129/66
[2022-07-21] MEDS: GLUCERNA 1.2 1,000 ML BOTTLE NG PRN (08:02)
--- NOTE | 2022-07-21 09:00 | NUR ---
MS RN OPENING NOTES PATIENT ON BED AWAKE AND A/O X1, NONVERBAL. ON ROOM AIR TOLERATING WELL. NO SOB NOTED. NOT IN DISTRESS. IN NO SIGNS OF PAIN OR DISCOMFORT VIA FLACC LEVEL OF PAIN. ON G-TUBE FEEDING OF GLUCERNA 1.2 AT 80ML/HR RUNNING WELL. MORNING CARE RENDERED. WITH TEAGUE CATHETER IN PLACED DRAINING CLEAR YELLOW URINE. WITH IV ACCESS AT THE LEFT UPPER ARM G20 SALINE LOCKED, PATENT AND INTACT. SAFETY MEASURES IN PLACED. CALL LIGHT WITHIN REACH. BED ON LOWER LOCKED POSITION, SIDE RAILS UP X2
[2022-07-21] MEDS: PANTOPRAZOLE 40 MG/PACK PACK GT SCH (09:03)
[2022-07-21] MEDS: DOCUSATE SODIUM LIQ 100 MG/10 ML UDC GT SCH ×2 (09:03→16:19)
[2022-07-21] MEDS: MULTIVIT W/MINERALS 1 TAB TABLET GT SCH (09:03)
[2022-07-21] MEDS: PROPRANOLOL HCL 10 MG TABLET GT SCH ×2 (09:04→16:24)
[2022-07-21] MEDS: OLANZAPINE 10 MG TABLET GT SCH ×2 (09:04→16:19)
[2022-07-21] MEDS: LACTOBACILLUS RHAMNOSUS GG 1 EACH CAP.SPRINK GT SCH (09:05)
[2022-07-21] MEDS: PRIMIDONE 250 MG TABLET GT SCH ×3 (09:05→16:20)
[2022-07-21] MEDS: QUETIAPINE FUMARATE 25 MG TABLET GT SCH ×2 (09:06→16:19)
[2022-07-21] MEDS: CHOLECALCIFEROL 1,000 UNIT TABLET (VIT D3) GT SCH (09:06)
[2022-07-21] MEDS: POLYVINYL ALCOHOL 15 ML BOTTLE EACHEYE SCH ×4 (09:07→21:16)
[2022-07-21] MEDS: POLYETHYLENE GLYCOL 3350 17 GM POWD.PACK GT SCH (09:07)
[2022-07-21] MEDS: ASPIRIN 81 MG TAB.CHEW GT SCH (09:07)
[2022-07-21] MEDS: FLUOXETINE HCL 20 MG CAPSULE GT SCH (09:09)
[2022-07-21] MEDS: ENOXAPARIN SODIUM 40 MG/0.4 ML DISP.SYRIN SQ SCH (09:11)
[2022-07-21] MEDS: ACETAMINOPHEN 650 MG/20.3 ML UDC GT SCH ×2 (12:17→21:16)
[2022-07-21 15:48] VITALS: BP 120/69
--- NOTE | 2022-07-21 19:01 | NUR ---
RN CLOSING NOTE PATIENT IN LYING IN BED , AWAKE NON VERBAL OPENS EYES AND MUMBLES TO SOUND AND TOUCH. PATIENT IS ON ROOM AIR SATURATING AT 96%, NO SOB OR RESPIRATORY DISTRESS NOTED. ALL DUE MEDS GIVEN BREATHING EVEN AND UNLABORED. PATIENT IS BEDBOUND, TOTAL ADL ASSISTANCE. PATIENT HAS GLUCERNA 1.2 ONGOING AT 80 ML/HR THROUGH GT, . FÁTIMA 20G IV ACCESS PATENT AND INTACT, FLUSHES WELL. TWO HOURLY TURNING DONE TO PREVENT PRESSURE ULCER. NO S/S OF PAIN AND DISCOMFORT NOTED THROUGHOUT THE SHIFT . TEAGUE CATHETER PRESENT DRAINING CLEAR YELLOW URINE VIA GRAVITY. SAFETY MEASURES IN PLACE: BED LOCKED AT THE LOWEST POSITION, CALL LIGHT AND TRAY TABLE WITHIN REACH, SIDE RAILS UP 3X. ENDORSED
--- NOTE | 2022-07-21 19:39 | NUR ---
RN OPENING NOTE PATIENT IN LYING IN BED , AWAKE NON VERBAL OPENS EYES AND MUMBLES TO SOUND AND TOUCH. PATIENT IS ON 2L NS, NO SOB OR RESPIRATORY DISTRESS NOTED. BREATHING EVEN AND UNLABORED. PATIENT IS BEDBOUND, TOTAL ADL ASSISTANCE. PATIENT HAS GLUCERNA 1.2 ONGOING AT 80 ML/HR THROUGH GT, FÁTIMA 20G IV ACCESS PATENT AND INTACT, FLUSHES WELL. NO S/S OF PAIN AND DISCOMFORT NOTED THROUGHOUT THE SHIFT. TEAGUE CATHETER PRESENT DRAINING CLEAR YELLOW URINE VIA GRAVITY. SAFETY MEASURES IN PLACE: BED LOCKED AT THE LOWEST POSITION, CALL LIGHT AND TRAY TABLE WITHIN REACH, SIDE RAILS UP 3X.
[2022-07-21 20:00] VITALS: BP 123/70
[2022-07-21] MEDS: ATORVASTATIN 40 MG TABLET GT SCH (21:17)
[2022-07-22] MEDS: IPRATROPIUM NEB FS 0.5 MG/2.5 ML AMPUL.NEB NEB SCH ×6 (03:52→23:17)
[2022-07-22] MEDS: PHENYTOIN SUSP UDC 100 MG/4 ML UDC GT SCH ×3 (04:50→21:10)
--- NOTE | 2022-07-22 07:40 | NUR ---
MS RN OPENING NOTE RECEIVED PATIENT IN BED, EYES OPEN. PATIENT DOES NOT RESPOND VERBALLY. RESPONSIVE TO SOUND AND TOUCH. PATIENT IS ON RA SATURATING AT 96%, NO SOB OR RESPIRATORY DISTRESS NOTED. BREATHING EVEN AND UNLABORED. PATIENT IS BEDBOUND, TOTAL ADL ASSISTANCE. PATIENT HAS GLUCERNA 1.2 ONGOING AT 80 ML/HR THROUGH GT, 10 ML RESIDUAL ASPIRATED. FÁTIMA 20G IV ACCESS INFILTRATED, REMOVED AND COVERED WITH DRESSING NO ACTIVE BLEEDING. WILL REINSERT A NEW LINE. PATIENT DOES NOT SEEM TO BE IN PAIN PER FLACC ASSESSMENT. TEAGUE CATHETER PRESENT DRAINING CLEAR YELLOW URINE VIA GRAVITY. SAFETY MEASURES IN PLACE: BED LOCKED AT THE LOWEST POSITION, CALL LIGHT AND TRAY TABLE WITHIN REACH, SIDE RAILS UP 3X. WILL MONITOR PATIENT CLOSELY DURING MY SHIFT.
[2022-07-22 08:00] VITALS: BP 119/72
[2022-07-22] MEDS: ASPIRIN 81 MG TAB.CHEW GT SCH (08:21)
[2022-07-22] MEDS: PANTOPRAZOLE 40 MG/PACK PACK GT SCH (08:21)
[2022-07-22] MEDS: MULTIVIT W/MINERALS 1 TAB TABLET GT SCH (08:21)
[2022-07-22] MEDS: QUETIAPINE FUMARATE 25 MG TABLET GT SCH ×2 (08:22→16:25)
[2022-07-22] MEDS: PROPRANOLOL HCL 10 MG TABLET GT SCH ×2 (08:22→16:25)
[2022-07-22] MEDS: CHOLECALCIFEROL 1,000 UNIT TABLET (VIT D3) GT SCH (08:22)
[2022-07-22] MEDS: LACTOBACILLUS RHAMNOSUS GG 1 EACH CAP.SPRINK GT SCH (08:22)
[2022-07-22] MEDS: DOCUSATE SODIUM LIQ 100 MG/10 ML UDC GT SCH ×2 (08:22→16:24)
[2022-07-22] MEDS: POLYETHYLENE GLYCOL 3350 17 GM POWD.PACK GT SCH (08:22)
[2022-07-22] MEDS: PRIMIDONE 250 MG TABLET GT SCH ×3 (08:23→16:25)
[2022-07-22] MEDS: FLUOXETINE HCL 20 MG CAPSULE GT SCH (08:23)
[2022-07-22] MEDS: OLANZAPINE 10 MG TABLET GT SCH ×2 (08:23→16:24)
[2022-07-22] MEDS: ENOXAPARIN SODIUM 40 MG/0.4 ML DISP.SYRIN SQ SCH (08:25)
[2022-07-22] MEDS: PROSOURCE / PROSTAT (PYXIS) 30 ML UDC GT SCH (09:48)
[2022-07-22] MEDS: GLUCERNA 1.2 1,000 ML BOTTLE NG PRN ×2 (09:55→23:14)
[2022-07-22] MEDS: POLYVINYL ALCOHOL 15 ML BOTTLE EACHEYE SCH ×4 (09:55→21:12)
--- NOTE | 2022-07-22 11:00 | NUR ---
RN NOTES - WOUND CARE, AM CARE AND PERINEAL CARE DONE WITH MA[employer]OR [employer] DENIZ
[2022-07-22 11:37] LABS: BASOPHILS % (AUTO) 0.5 % (0.0-2.0); EOSINOPHILS % (AUTO) 3.6 % (0.0-6.0); HEMATOCRIT 34 % (39-51); HEMOGLOBIN 11.3 g/dL (13.5-17.5); LYMPHOCYTES # (AUTO) 0.6 K/uL (0.8-4.8); LYMPHOCYTES % (AUTO) 8.5 % (20.0-44.0); MEAN CORPUSCULAR HGB CONC 33 g/dl (31.0-36.0); MEAN CORPUSCULAR VOLUME 90 fL (80-96); MONOCYTES # (AUTO) 0.5 K/uL (0.1-1.30); MONOCYTES % (AUTO) 7.4 % (2.0-12.0); NEUTROPHILS # (AUTO) 5.8 K/uL (1.8-8.9); PLATELET COUNT (AUTO) 261 K/uL (150-450); RED BLOOD CELL COUNT(AUTO) 3.81 MIL/uL (4.5-6.0); WHITE BLOOD COUNT (AUTO) 7.2 K/uL (4.3-11.0)
[2022-07-22 11:47] LABS: CALCIUM, SERUM 8.6 mg/dL (8.5-10.1); CREATININE 0.6 mg/dL (0.6-1.3)
--- NOTE | 2022-07-22 11:49 | NUR ---
MS RN OPENING NOTE RECEIVED PATIENT IN BED, EYES OPEN. PATIENT DOES NOT RESPOND VERBALLY. RESPONSIVE TO SOUND AND TOUCH. PATIENT IS ON RA SATURATING AT 96%, NO SOB OR RESPIRATORY DISTRESS NOTED. BREATHING EVEN AND UNLABORED. PATIENT IS BEDBOUND, TOTAL ADL ASSISTANCE. PATIENT HAS GLUCERNA 1.2 ONGOING AT 80 ML/HR THROUGH GT, 10 ML RESIDUAL ASPIRATED. FÁTIMA 20G IV ACCESS INFILTRATED, REMOVED AND COVERED WITH DRESSING NO ACTIVE BLEEDING. WILL REINSERT A NEW LINE. PATIENT DOES NOT SEEM TO BE IN PAIN PER FLACC ASSESSMENT. TEAGUE CATHETER PRESENT DRAINING CLEAR YELLOW URINE VIA GRAVITY. SAFETY MEASURES IN PLACE: BED LOCKED AT THE LOWEST POSITION, CALL LIGHT AND TRAY TABLE WITHIN REACH, SIDE RAILS UP 3X. WILL MONITOR PATIENT CLOSELY DURING MY SHIFT. . Addendum: 07/22/22 at 1150 by VINCENT KRISHNAN RN DISREGARD - DUPLICATED
[2022-07-22] MEDS: ACETAMINOPHEN 650 MG/20.3 ML UDC GT SCH ×2 (12:27→21:10)
--- NOTE | 2022-07-22 12:39 | NUR ---
RN NOTES - VTE SCORE OF 5 DVT PUMPS REAPPLIED
[2022-07-22 16:00] VITALS: BP 116/66
--- NOTE | 2022-07-22 18:50 | NUR ---
MS RN CLOSING NOTE PATIENT IN BED, EYES OPEN. PATIENT DOES NOT RESPOND VERBALLY. RESPONSIVE TO SOUND AND TOUCH. PATIENT IS ON RA SATURATING AT 96%, NO SOB OR RESPIRATORY DISTRESS NOTED. BREATHING EVEN AND UNLABORED. PATIENT IS BEDBOUND, TOTAL ADL ASSISTANCE. PATIENT HAS GLUCERNA 1.2 ONGOING AT 80 ML/HR THROUGH GT. NO IV ACCESS. PATIENT DOES NOT SEEM TO BE IN PAIN PER FLACC ASSESSMENT. TEAGUE CATHETER PRESENT DRAINING CLEAR YELLOW URINE VIA GRAVITY. SAFETY MEASURES IN PLACE: BED LOCKED AT THE LOWEST POSITION, CALL LIGHT AND TRAY TABLE WITHIN REACH, SIDE RAILS UP 3X. ALL NEEDS MET, ALL DUE MEDS GIVEN, TURNED AND REPOSITION. WILL ENDORSE TO DIRECTOR OF PERIOPERATIVE SERVICES NURSE.
--- NOTE | 2022-07-22 19:44 | NUR ---
MS RN OPENING NOTES RECEIVED PATIENT IN WITH EYES CLOSED BUT AROUSABLE TO TOUCH,NONVERBAL,TOLERATING WELL ON ROOM AIR WITH NO SOB/RESPIRATORY DISTRESS NOTED.G-TUBE FEEDING JEVITY 1.2 GASTON @ 70 ML/HR.CURT WELL NO RESIDUAL NOTED. TEAGUE CATHETER IN PLACE DRAINING CLEAR YELLOW URINE,ENDORSED MORNING NURSE NO IV ACCESS,SAFETY MEASURES IN PLACE: BED IN LOWEST LOCKED POSITION, SIDE RAILS UP X 2, CALL LIGHT WITHIN REACH. WILL CONTINUE TO MONITOR.
[2022-07-22 20:00] VITALS: BP 108/70
[2022-07-22] MEDS: ATORVASTATIN 40 MG TABLET GT SCH (21:10)
[2022-07-23] MEDS: IPRATROPIUM NEB FS 0.5 MG/2.5 ML AMPUL.NEB NEB SCH ×4 (03:42→15:55)
[2022-07-23] MEDS: PHENYTOIN SUSP UDC 100 MG/4 ML UDC GT SCH ×2 (05:02→12:41)
--- NOTE | 2022-07-23 06:21 | NUR ---
MS RN CLOSING NOTES;315 PATIENT IN BED WITH EYES CLOSED BUT EASY TO AROUSED,NON-VERBAL. ON ROOM AIR CURT WELL,NO SIGN SOB/DISTRESS NOTED,DUE MEDS GIVEN ORDER,ALL NEEDS ATTENDED,.PT GT FEEDING GLUCERNA 1.2 @ 80 ML/HR CURT WELL,NO RESIDUAL NOTED,WITH TEAGUE CATHETER IN PLACE, DRAINING TO GRAVITY WITH CLEAR YELLOW URINE OUTPUT 1050ML,FALL AND SAFETY MEASURES IMPLEMENTED: CALL LIGHT AND TABLE WITHIN REACH, SIDE RAILS UP X 2, BED IN LOWEST LOCKED POSITION. WILL ENDORSED TO NEXT SHIFT..
--- NOTE | 2022-07-23 07:48 | NUR ---
MS RN OPENING NOTE RECEIVED PATIENT IN BED, EYES OPEN. PATIENT DOES NOT RESPOND VERBALLY. RESPONSIVE TO SOUND AND TOUCH. PATIENT IS ON RA SATURATING AT 96%, BREATHING EVEN AND UNLABORED. NO SOB OR RESPIRATORY DISTRESS NOTED. PATIENT IS BEDBOUND, TOTAL ADL ASSISTANCE. GLUCERNA 1.2 ONGOING AT 80 ML/HR THROUGH GT, 10 ML RESIDUAL ASPIRATED. NO IV ACCESS AT THE MOMENT. WITHOUT PAIN PER FLACC ASSESSMENT. TEAGUE CATHETER PRESENT DRAINING CLEAR YELLOW URINE VIA GRAVITY. SAFETY MEASURES IN PLACE: BED LOCKED AT THE LOWEST POSITION, CALL LIGHT AND TRAY TABLE WITHIN REACH, SIDE RAILS UP 3X. WILL MONITOR PATIENT CLOSELY DURING MY SHIFT.
[2022-07-23 08:00] VITALS: BP 116/72
[2022-07-23] MEDS: ENOXAPARIN SODIUM 40 MG/0.4 ML DISP.SYRIN SQ SCH (08:21)
[2022-07-23] MEDS: PROPRANOLOL HCL 10 MG TABLET GT SCH ×2 (08:24→18:10)
[2022-07-23] MEDS: PANTOPRAZOLE 40 MG/PACK PACK GT SCH (08:24)
[2022-07-23] MEDS: MULTIVIT W/MINERALS 1 TAB TABLET GT SCH (08:24)
[2022-07-23] MEDS: LACTOBACILLUS RHAMNOSUS GG 1 EACH CAP.SPRINK GT SCH (08:24)
[2022-07-23] MEDS: POLYETHYLENE GLYCOL 3350 17 GM POWD.PACK GT SCH (08:24)
[2022-07-23] MEDS: ASPIRIN 81 MG TAB.CHEW GT SCH (08:25)
[2022-07-23] MEDS: CHOLECALCIFEROL 1,000 UNIT TABLET (VIT D3) GT SCH (08:25)
[2022-07-23] MEDS: PRIMIDONE 250 MG TABLET GT SCH ×3 (08:25→18:10)
[2022-07-23] MEDS: OLANZAPINE 10 MG TABLET GT SCH ×2 (08:25→18:10)
[2022-07-23] MEDS: PROSOURCE / PROSTAT (PYXIS) 30 ML UDC GT SCH (08:25)
[2022-07-23] MEDS: DOCUSATE SODIUM LIQ 100 MG/10 ML UDC GT SCH ×2 (08:25→18:10)
[2022-07-23] MEDS: QUETIAPINE FUMARATE 25 MG TABLET GT SCH ×2 (08:25→18:10)
[2022-07-23] MEDS: FLUOXETINE HCL 20 MG CAPSULE GT SCH (08:30)
[2022-07-23] MEDS: POLYVINYL ALCOHOL 15 ML BOTTLE EACHEYE SCH ×3 (09:04→18:12)
[2022-07-23] MEDS: ACETAMINOPHEN 650 MG/20.3 ML UDC GT SCH (12:41)
[2022-07-23] MEDS ORDERED: ENOXAPARIN SODIUM 40 MG/0.4 ML DISP.SYRIN SQ SCH (13:13)
[2022-07-23 16:00] VITALS: BP 105/62
[2022-07-23 18:10] VITALS: BP 105/62
--- NOTE | 2022-07-23 18:30 | NUR ---
MS GEOGRAPHIC INFORMATION SYSTEMS MANAGER NOTE PT DISCHARGED TO [facility] IN STABLE CONDITION. PT IS AWAKE, ORIENTED TO SELF ONLY, NON-VERBAL, UNABLE TO MAKE NEEDS KNOWN. ON ROOM AIR SATURATING WELL WITH SPO2 96%. NO SOB NOTED. NOT IN ANY SIGN OF RESPIRATORY DISTRESS. VITAL SIGNS TAKEN, STABLE, AND RECORDED. PT'S SKIN CONDITIONS ARE THE SAME UPON ADMISSION, PICTURES TAKEN. DENIES PAIN OR DISCOMFORT AT THIS TIME. NO BELONGINGS NOTED. DISCHARGE INSTRUCTIONS RELAYED TO SVEN BLACKWOOD OF [facility] - MEDS RECONCILIATION AND COVID TEST (NEGATIVE) GIVEN. NO IV ACCESS, TEAGUE CATHETER NOT REMOVED PER SNF'S REQUEST. PT LEFT THE UNIT AT 1825 VIA GURNEY ACCOMPANIED BY 2 BICYCLE REPAIRMAN. MD AND CHARGE NURSE AWARE OF DISCHARGE.
[2022-07-24] MEDS ORDERED: ENOXAPARIN SODIUM 40 MG/0.4 ML DISP.SYRIN SQ SCH (09:00)
== END 2022-07-23 18:50 | DRG 720 ==
LOC: ER 14:02 → TRANSITION 23:46 → TELE 07-02 08:31 → MED 07-07 23:00
PROVIDERS: ADMIT Nurse Practitioner Acute Care; ATTEND Nurse Practitioner Acute Care
PROC: 0DH63UZ Insertion of Feeding Device into Stomach, Percutaneous Approach (ICD-10-PCS; principal; 2022-07-06)
DX: A41.9 Sepsis, unspecified organism (principal); J96.01 Acute respiratory failure with hypoxia; N17.0 Acute kidney failure with tubular necrosis; J69.0 Pneumonitis due to inhalation of food and vomit; G92.8 Other toxic encephalopathy; E44.0 Moderate protein-calorie malnutrition; D68.59 Other primary thrombophilia; E83.51 Hypocalcemia; J15.9 Unspecified bacterial pneumonia; E87.6 Hypokalemia; E78.5 Hyperlipidemia, unspecified; E86.0 Dehydration; E88.09 Other disorders of plasma-protein metabolism, not elsewhere classified; E86.1 Hypovolemia; G40.909 Epilepsy, unspecified, not intractable, without status epilepticus; R13.10 Dysphagia, unspecified; K59.00 Constipation, unspecified; Z79.82 Long term (current) use of aspirin; Z88.0 Allergy status to penicillin; R74.01 Elevation of levels of liver transaminase levels; Z74.09 Other reduced mobility; I11.0 Hypertensive heart disease with heart failure; I50.9 Heart failure, unspecified; Z86.73 Personal history of transient ischemic attack (TIA), and cerebral infarction without residual deficits; F32.A Depression, unspecified; J44.9 Chronic obstructive pulmonary disease, unspecified; E87.0 Hyperosmolality and hypernatremia; Z20.822 Contact with and (suspected) exposure to COVID-19; Z68.20 Body mass index [BMI] 20.0-20.9, adult; L89.526 Pressure-induced deep tissue damage of left ankle; L89.896 Pressure-induced deep tissue damage of other site; J44.0 Chronic obstructive pulmonary disease with (acute) lower respiratory infection; Z85.71 Personal history of Hodgkin lymphoma
CPT/HCPCS: 36415; 43760; 71045-TC; 80048-TC; 80076-TC; 80185-TC; 80202-TC; 81001; 83605-TC; 83735-TC; 83880; 84100-TC; 84484-TC; 85025-TC; 85730-TC; 87040-TC; 87081-TC; 87086-TC; 92526; 92611-TC; 94799-TC; A4349; C9803; G0378; J0692; J1100; J1165; J1650; J2405; J2704; J3370; J3480; J3490; J7030; J7040; J7042; J7050; J7060

== ENCOUNTER 2022-09-26 08:45 | Inpatient (IN) | payer OTHER ==
[~2022-09-26] VITALS: Ht 182.9 cm; Wt 78.0 kg
[~2022-09-26 08:45] MED LIST changes: -CLOP75TA15 PO; +FLUO20CA42 PO; -KETO10DR3 EACHEYE; +MAG30ORA PO; +MAGN400O6 PO; +MULT-447 PO; +OLAN10TA3 PO; +POLY15DR40 EACHEYE; +POLY17PO4 PO; +PRED10TA PO; +PROP20TA7 PO; -PROP60CA38 PO; +QUET50TA PO; -SIME80TA15 PO; +ZOLP5TAB8 PO
--- NOTE | 2022-09-26 08:55 | NUR ---
BIB PA FROM [facility] NOTED COFFEE GROUND EMESIS X LAST NIGHT. PT CONNECTED TO MONITOR AND PULSE OX. NO LABORED BREATHING NOTED ON ROOM AIR. TEAGUE IN PLACE ATTACHED TO DRAINAIGE BAG, NOTED CLEAR URINE OUTPUT. G TUBE IN PLACE. KEPT COMFORTABLE, WILL CONTINUE TO MONITOR.
[2022-09-26] MEDS ORDERED: PANTOPRAZOLE 40 MG VIAL IV ONE (09:00)
[2022-09-26] MEDS ORDERED: IV NS 0.9% 1,000 ML BAG IV ONE (09:00)
[2022-09-26] MEDS ORDERED: ONDANSETRON HCL/PF 4 MG/2 ML VIAL IVP ONE (09:00)
--- NOTE | 2022-09-26 09:15 | NUR ---
MOVE SHEET SUBMITTED.
--- NOTE | 2022-09-26 09:20 | NUR ---
IV ESTABLISHED, LAC 18G. BLOOD AND CULTURES DRAWN SENT TO LAB. COVID SPECIMEN AND FLU SWAB COLLECTED SENT TO LAB. URINE COLLECTED AND SENT TO LAB.
[2022-09-26] MEDS ORDERED: ACETAMINOPHEN ES 500 MG TABLET PO ONE (09:30)
[2022-09-26] MEDS ORDERED: VANCOMYCIN 1 GM in IV D5W 250 ML IV ONE (09:30)
[2022-09-26] MEDS ORDERED: CEFEPIME 1 GM in IV D5W 50 ML IV ONE (09:30)
[2022-09-26] MEDS ORDERED: MORPHINE SULFATE INJ 2 MG/ML DISP.SYRIN IV ONE (09:30)
[2022-09-26] MEDS ORDERED: ACETAMINOPHEN ES 500 MG TABLET ONE (09:33)
[2022-09-26] MEDS ORDERED: PANTOPRAZOLE 40 MG VIAL ONE (09:33)
[2022-09-26] MEDS ORDERED: ONDANSETRON HCL/PF 4 MG/2 ML VIAL ONE (09:33)
[2022-09-26] MEDS ORDERED: MORPHINE SULFATE INJ 2 MG/ML DISP.SYRIN ONE (09:33)
[2022-09-26 09:37] LABS: BASOPHILS % (AUTO) 0.3 % (0.0-2.0); EOSINOPHILS % (AUTO) 0.9 % (0.0-6.0); HEMATOCRIT 38 % (39-51); HEMOGLOBIN 12.5 g/dL (13.5-17.5); LYMPHOCYTES # (AUTO) 1.1 K/uL (0.8-4.8); LYMPHOCYTES % (AUTO) 9.7 % (20.0-44.0); MEAN CORPUSCULAR HGB CONC 33 g/dl (31.0-36.0); MEAN CORPUSCULAR VOLUME 91 fL (80-96); MONOCYTES # (AUTO) 0.9 K/uL (0.1-1.30); MONOCYTES % (AUTO) 8.1 % (2.0-12.0); NEUTROPHILS # (AUTO) 8.9 K/uL (1.8-8.9); PLATELET COUNT (AUTO) 282 K/uL (150-450); RED BLOOD CELL COUNT(AUTO) 4.18 MIL/uL (4.5-6.0)
[2022-09-26 09:45] LABS: BILIRUBIN,URINE NEGATIVE (NEGATIVE); LEUKOCYTE ESTERASE ,URINE NEGATIVE (NEGATIVE); NITRITE, URINE NEGATIVE (NEGATIVE); PROTEIN,URINE NEGATIVE (NEGATIVE); UGLUCOSE NEGATIVE (NEGATIVE); UROBILINOGEN,URINE 0.2 EU/dL (0.2)
[2022-09-26 09:49] LABS: COLOR,URINE DARK YELLOW (YELLOW)
[2022-09-26 10:00] LABS: ALANINE AMINOTRANSFERASE 32 U/L (12-78); ALBUMIN 2.8 g/dL (3.4-5.0); ALKALINE PHOSPHATASE 119 U/L (46-116); ASPARTATE AMINOTRANSFERASE 33 U/L (15-37); BILIRUBIN,DIRECT 0.1 mg/dL (0.0-0.2); BILIRUBIN,TOTAL 0.3 mg/dL (0.2-1.0); CALCIUM, SERUM 8.5 mg/dL (8.5-10.1); CARBON DIOXIDE 33 mmol/L (21-32); CHLORIDE 101 mmol/L (98-107); CREATININE 0.6 mg/dL (0.6-1.3); GLUCOSE 125 mg/dL (74-106); LIPASE 67 U/L (73-393); POTASSIUM 4.3 mmol/L (3.5-5.1); SODIUM SERUM 136 mmol/L (136-145); TOTAL PROTEIN, SERUM 7.7 g/dL (6.4-8.2); UREA NITROGEN, BLOOD 25 mg/dL (7-18)
[2022-09-26] MEDS ORDERED: MAGNESIUM HYDROXIDE 30 ML UDC PO PRN (12:30)
[2022-09-26] MEDS ORDERED: ONDANSETRON HCL/PF 4 MG/2 ML VIAL IVP PRN (12:30)
[2022-09-26] MEDS ORDERED: BISACODYL SUPP (10 MG) 10 MG/SUPP.RECT SUPP.RECT RC PRN (12:30)
[2022-09-26] MEDS ORDERED: Z GUARD REMEDY 4 OZ OINT TP PRN (12:30)
[2022-09-26] MEDS ORDERED: ACETAMINOPHEN 325 MG TABLET PO PRN ×2 (12:30)
[2022-09-26] MEDS: POLYVINYL ALCOHOL 15 ML BOTTLE EACHEYE SCH ×2 (13:00→21:00)
[2022-09-26] MEDS ORDERED: ACETAMINOPHEN 325 MG TABLET PO SCH (13:00)
--- NOTE | 2022-09-26 13:39 | NUR ---
GOT BED 321-1
[2022-09-26] MEDS: IPRATROPIUM NEB FS 0.5 MG/2.5 ML AMPUL.NEB NEB SCH ×2 (14:00→19:30)
--- NOTE | 2022-09-26 14:36 | NUR ---
report given to Maria Dolores hooker to continue care.
--- NOTE | 2022-09-26 14:50 | NUR ---
RN Receiving Report Patient AOx1 able to provide his last name (delayed response). Patient with no signs of distress or discomfort. IV with no signs of infiltration. All safety precautions taken, call light and table within reach, bed at lowest position. Patient oriented to the unit, introduced myself and asked the patient to use call light if needed. Not able to assess patients understanding.
--- NOTE | 2022-09-26 15:54 | NUR ---
wheeled patient via gurney accompanied by RN and emt in no distress.
[2022-09-26] MEDS ORDERED: CLINDAMYCIN IV RTU IN D5W 900 MG/50 ML PIGGYBACK IV SCH (16:00)
[2022-09-26] MEDS: CLINDAMYCIN 900 MG in IV D5W 50 ML IV SCH ×2 (16:23→22:06)
[2022-09-26] MEDS ORDERED: PHARMACY TO CHANGE GT/NG MEDS TO PO XX PRN (16:30)
[2022-09-26] MEDS ORDERED: PROPRANOLOL HCL 10 MG TABLET PO SCH (17:00)
[2022-09-26] MEDS ORDERED: PRIMIDONE 250 MG TABLET PO SCH (17:00)
[2022-09-26] MEDS ORDERED: QUETIAPINE FUMARATE 25 MG TABLET PO SCH (17:00)
[2022-09-26] MEDS: DOCUSATE SODIUM LIQ 100 MG/10 ML UDC GT SCH (17:52)
[2022-09-26] MEDS: PANTOPRAZOLE 40 MG VIAL IV SCH (17:52)
[2022-09-26] MEDS: OLANZAPINE 10 MG TABLET GT SCH (17:53)
[2022-09-26] MEDS: QUETIAPINE FUMARATE 25 MG TABLET GT SCH (17:53)
[2022-09-26] MEDS: PRIMIDONE 250 MG TABLET GT SCH (17:54)
[2022-09-26] MEDS: PROPRANOLOL HCL 10 MG TABLET GT SCH (17:54)
--- NOTE | 2022-09-26 19:44 | NUR ---
RN Closing Note Patient AOx1, patient able to state his last name, delayed speech. Not able to assess patients mental status, he responds to yes or no questions but takes time to process information. Patient stable throughout shift, administered medication and provided care as needed. All safety precautions taken, call light and table within reach. Will endorse to night nurse for continuity of care.
--- NOTE | 2022-09-26 19:45 | NUR ---
RN OPENING Note Patient AOx1, patient able to state his last name, delayed speech. Not able to assess patients mental status, he responds to yes or no questions but takes time to process information. All safety precautions taken, call light and table within reach.
[2022-09-26 20:00] VITALS: BP 105/60
[2022-09-26] MEDS: VANCOMYCIN 1 GM in IV D5W 250 ML IV SCH (20:27)
[2022-09-26] MEDS: ACETAMINOPHEN 650 MG/20.3 ML UDC GT SCH (21:00)
[2022-09-26] MEDS ORDERED: PHENYTOIN EXTENDED RELEASE 100 MG CAPSULE PO SCH (22:00)
[2022-09-26] MEDS: ATORVASTATIN 40 MG TABLET GT SCH (22:00)
[2022-09-26] MEDS ORDERED: ZOLPIDEM TARTRATE 5 MG TABLET PO SCH (22:00)
[2022-09-26] MEDS: PHENYTOIN SODIUM IV 100 MG/2ML VIAL IV SCH (22:06)
[2022-09-27] VITALS: BP 93/58
[2022-09-27] MEDS: CLINDAMYCIN 900 MG in IV D5W 50 ML IV SCH ×3 (00:02→16:02)
[2022-09-27] MEDS: POLYVINYL ALCOHOL 15 ML BOTTLE EACHEYE SCH ×5 (00:59→21:46)
[2022-09-27] MEDS: VANCOMYCIN 1 GM in IV D5W 250 ML IV SCH ×2 (03:32→09:54)
[2022-09-27] MEDS: IPRATROPIUM NEB FS 0.5 MG/2.5 ML AMPUL.NEB NEB SCH ×4 (03:56→20:13)
[2022-09-27 04:00] VITALS: BP 111/76
[2022-09-27] MEDS: PHENYTOIN SODIUM IV 100 MG/2ML VIAL IV SCH ×3 (05:21→21:27)
[2022-09-27 06:22] LABS: BASOPHILS % (AUTO) 0.4 % (0.0-2.0); EOSINOPHILS % (AUTO) 3.1 % (0.0-6.0); HEMATOCRIT 33 % (39-51); LYMPHOCYTES # (AUTO) 0.9 K/uL (0.8-4.8); LYMPHOCYTES % (AUTO) 11.6 % (20.0-44.0); MEAN CORPUSCULAR HGB CONC 34 g/dl (31.0-36.0); MEAN CORPUSCULAR VOLUME 92 fL (80-96); MONOCYTES # (AUTO) 0.8 K/uL (0.1-1.30); MONOCYTES % (AUTO) 10.5 % (2.0-12.0); NEUTROPHILS # (AUTO) 5.6 K/uL (1.8-8.9); NEUTROPHILS % (AUTO) 74.4 % (43.0-81.0); PLATELET COUNT (AUTO) 215 K/uL (150-450); RED BLOOD CELL COUNT(AUTO) 3.56 MIL/uL (4.5-6.0); WHITE BLOOD COUNT (AUTO) 7.5 K/uL (4.3-11.0)
[2022-09-27 06:34] LABS: CALCIUM, SERUM 8.3 mg/dL (8.5-10.1); CREATININE 0.5 mg/dL (0.6-1.3); PHOSPHORUS 3.9 mg/dL (2.5-4.9)
--- NOTE | 2022-09-27 06:34 | NUR ---
RN OPENING Note Patient AOx1, patient responds to yes or no questions but takes time to process information. All safety precautions taken, call light and table within reach.all due medications given and tolerated well. all safety measures followed hob elevated for aspiration precautions.bed alarm on bed locked in low position. pt remains npo due to reported episodes of coffee ground emesis. pt did not have any episodes during the shift. will endorse judy to day shift nurse.
[2022-09-27 06:43] LABS: THYROID STIMULATING HORMONE 1.941 uIU/mL (0.358-3.74)
--- NOTE | 2022-09-27 07:23 | NUR ---
LABOR OPERATOR OPENING NOTES RECEIVED PATIENT AWAKE IN BED IN NO ACUTE SIGNS OF DISTRESS. HOB ELEVATED. A/O X1. NON-VERBAL, NO S/S OF PAIN OR ANY DISCOMFORTS OBSERVED AT THIS TIME. ON ROOM AIR, TOLERATING WELL, BREATHING EVEN AND UNLABORED. ON TELE-MONITOR WITH CURRENT READING OF ST, HR 104, NO S/S OF CARDIAC DISTRESS NOTED AT THIS TIME. TEAGUE IN PLACE AND DRAINING CLEAR YELLOW URINE VIA GRAVITY. PT IS NPO WITH G-TUBE IN PLACE AND CLAMPED AT THIS TIME. ASPIRATION AND SAFETY PRECAUTIONS IN PLACE: BED IN LOWEST LOCKED POSITION WITH SR UP X3, BED ALARM ON AND CALL LIGHT W/IN REACH. WILL CONTINUE TO MONITOR PT ACCORDINGLY.
[2022-09-27] MEDS ORDERED: PANTOPRAZOLE 40 MG TABLET.DR PO SCH (07:30)
[2022-09-27 08:00] VITALS: BP 113/69
[2022-09-27 08:08] LABS: ABG BASE EXCESS 4.2 mmol/L; ABG OXYGEN SATURATION 92.8 % (92.0-98.5); ABG PCO2 42.7 mmHg (35.0-45.0); ABG PH 7.445 (7.350-7.450); ABG PO2 64.4 mmHg (75.0-100.0); AaDO2 34.2 mmHg; COHb 0.9 % (0.5-1.5); MetHb 0.2 % (0.0-1.5); O2Hb 91.8 % (94.0-97.0); SITE, ABG Left Radial; VENT MODE, BG ROOM AIR
--- NOTE | 2022-09-27 08:30 | NUR ---
RN NOTES ABG DONE BY RT, RESULTS SHOWS LOW P02 64.4. RT PLACED PT ON SUPPLEMENTAL 02 VIA N/C AT 2LPM WILL CONTINUE TO MONITOR.
[2022-09-27] MEDS: CHOLECALCIFEROL 1,000 UNIT TABLET (VIT D3) GT SCH (09:00)
[2022-09-27] MEDS: ACIDOPHILUS/BULGARICUS 1 EACH TAB.CHEW GT SCH (09:00)
[2022-09-27] MEDS: OLANZAPINE 10 MG TABLET GT SCH ×2 (09:00→16:32)
[2022-09-27] MEDS: MULTIVIT W/MINERALS 1 TAB TABLET GT SCH (09:00)
[2022-09-27] MEDS ORDERED: predniSONE 5 MG TABLET GT SCH (09:00)
[2022-09-27] MEDS: DOCUSATE SODIUM LIQ 100 MG/10 ML UDC GT SCH ×2 (09:00→16:31)
[2022-09-27] MEDS: POLYETHYLENE GLYCOL 3350 17 GM POWD.PACK GT SCH (09:00)
[2022-09-27] MEDS: PROPRANOLOL HCL 10 MG TABLET GT SCH ×2 (09:00→16:32)
[2022-09-27] MEDS: FLUOXETINE HCL 20 MG CAPSULE GT SCH (09:00)
[2022-09-27] MEDS: PRIMIDONE 250 MG TABLET GT SCH ×3 (09:00→16:32)
[2022-09-27] MEDS: QUETIAPINE FUMARATE 25 MG TABLET GT SCH ×2 (09:00→16:32)
[2022-09-27] MEDS: PANTOPRAZOLE 40 MG VIAL IV SCH ×2 (09:11→16:31)
--- NOTE | 2022-09-27 09:55 | NUR ---
RN NOTES PT NOTED WITH ELEVATED VANCO TROUGH LEVEL 25 THIS MORNING, VANCO IV NOT ADMINISTERED PER PROTOCOL.
--- NOTE | 2022-09-27 11:34 | NUR ---
RN NOTES PT SEEN BY BP MAURICIO WITH ORDER FOR DIETARY CONSULT FOR G-TUBE FEED RECOMMENDATION.
[2022-09-27] MEDS: ACETAMINOPHEN 650 MG/20.3 ML UDC GT SCH ×2 (12:20→21:27)
[2022-09-27] MEDS: VANCOMYCIN 1.25 GM in IV D5W 250 ML IV SCH (16:34)
[2022-09-27] MEDS: JEVITY 1.2 CAL 1,000 ML BOTTLE GT PRN (17:00)
[2022-09-27] MEDS: IV NS 0.9% 1,000 ML IV PRN (17:02)
[2022-09-27 17:19] VITALS: BP 121/65
--- NOTE | 2022-09-27 18:23 | NUR ---
RN NOTES CALLED AND LEFT MESSAGE X2 TO [employer] TO SEND G-TUBE PUMP BECAUSE THE ONE THEY SENT EARLIER IS NOT WORKING PROPERLY. WILL ENDORSE TO INCOMING SHIFT.
--- NOTE | 2022-09-27 18:36 | NUR ---
OPEN HEARTH LABORER CLOSING NOTES PATIENT IN BED AWAKE AT THIS TIME. HOB ELEVATED. A/O X1. ABLE TO SAY YES OR NO ONLY. CONFUSED. ON 02 VIA N/C @ 2LPM, TOLERATING WELL, BREATHING EVEN AND UNLABORED. ON TELE-MONITOR WITH CURRENT READING OF NSR, HR 96, NO S/S OF CARDIAC DISTRESS NOTED DURING SHIFT. IV ACCESS ON LAC G#18 INTACT WITH IVF OF NS @ 50ML/HR INFUSING WELL, NO S/S OF INFILTRATION NOTED.F OLEY IN PLACE AND DRAINING CLEAR YELLOW URINE VIA GRAVITY. G-TUBE IN PLACE WITH FEEDING OF JEVITY 1.2 @ 35ML/HR RUNNING AT THIS TIME, TOLERATING WELL. PT TURNED AND REPOSITIONED Q 2HRS AND AR. ALL NEEDS/CARE ANTICIPATED AND MET. ASPIRATION AND SAFETY PRECAUTIONS KEPT IN PLACE: BED IN LOWEST LOCKED POSITION WITH SR UP X3, HOB ELEVATED AT ALL TIMES, BED ALARM ON AND CALL LIGHT W/IN REACH. WILL ENDORSED JUNE TO BROOMMAKER NURSE.
--- NOTE | 2022-09-27 19:54 | NUR ---
MANAGER MARKETING COMMUNICATION OPENING NOTES; RECEIVED PATIENT AWAKE IN BED A/O X1. NON-VERBAL,ON ROOM AIR TOLERATING WELL,NO SIGN SOB/DISTRESS NOTED, BREATHING EVEN AND UNLABORED,NO SIGN OF PAIN/DISCOMFORT AT THIS TIME,TEAGUE IN PLACE AND DRAINING CLEAR YELLOW URINE VIA GRAVITY. PT IS NPO WITH GTF JEVITY 1.2 @40ML/HR.NO RESIDUAL NOTED,HOB ELEVATED AT ALL TIME,BED IN LOWEST LOCKED POSITION WITH SR UP X3, BED ALARM ON AND CALL LIGHT W/IN REACH. WILL CONTINUE TO MONITOR.
[2022-09-27] MEDS: ATORVASTATIN 40 MG TABLET GT SCH (21:27)
[2022-09-28] MEDS: CLINDAMYCIN 900 MG in IV D5W 50 ML IV SCH ×4 (01:00→23:30)
[2022-09-28] MEDS: IPRATROPIUM NEB FS 0.5 MG/2.5 ML AMPUL.NEB NEB SCH ×4 (01:24→19:49)
[2022-09-28] MEDS: VANCOMYCIN 1.25 GM in IV D5W 250 ML IV SCH ×2 (03:06→14:19)
[2022-09-28 04:00] VITALS: BP 143/83
[2022-09-28] MEDS: PHENYTOIN SODIUM IV 100 MG/2ML VIAL IV SCH ×3 (04:34→20:35)
[2022-09-28 05:47] LABS: BASOPHILS % (AUTO) 0.4 % (0.0-2.0); EOSINOPHILS % (AUTO) 4.2 % (0.0-6.0); HEMATOCRIT 32 % (39-51); HEMOGLOBIN 10.8 g/dL (13.5-17.5); LYMPHOCYTES # (AUTO) 0.7 K/uL (0.8-4.8); LYMPHOCYTES % (AUTO) 8.3 % (20.0-44.0); MEAN CORPUSCULAR HGB CONC 33 g/dl (31.0-36.0); MEAN CORPUSCULAR VOLUME 91 fL (80-96); MONOCYTES # (AUTO) 0.9 K/uL (0.1-1.30); MONOCYTES % (AUTO) 10.8 % (2.0-12.0); NEUTROPHILS % (AUTO) 76.3 % (43.0-81.0); PLATELET COUNT (AUTO) 220 K/uL (150-450); RED BLOOD CELL COUNT(AUTO) 3.57 MIL/uL (4.5-6.0); WHITE BLOOD COUNT (AUTO) 7.9 K/uL (4.3-11.0)
[2022-09-28 06:16] LABS: CALCIUM, SERUM 8.1 mg/dL (8.5-10.1); CREATININE 0.5 mg/dL (0.6-1.3); MAGNESIUM 1.9 mg/dL (1.8-2.4); PHOSPHORUS 3.7 mg/dL (2.5-4.9); POTASSIUM 3.8 mmol/L (3.5-5.1)
--- NOTE | 2022-09-28 06:24 | NUR ---
FUR SCRAPER CLOSING NOTES; PATIENT AWAKE IN BED A/O X1. NON-VERBAL,ON ROOM AIR TOLERATING WELL,NO SIGN SOB/DISTRESS NOTED, BREATHING EVEN AND UNLABORED,NO SIGN OF PAIN/DISCOMFORT DURING SHIFT,TEAGUE IN PLACE AND DRAINING CLEAR YELLOW URINE VIA GRAVITY OUTPUT 1400ML.DUE MEDS GIVEN OREDER,ALL NEEDS ATTENDED, PT IS NPO WITH GTF JEVITY 1.2 @50ML/HR.NO RESIDUAL NOTED,HOB ELEVATED AT ALL TIME,BED IN LOWEST LOCKED POSITION WITH SR UP X3, BED ALARM ON AND CALL LIGHT W/IN REACH. WILL ENDORSED TO NEXT
[2022-09-28 07:00] VITALS: BP 112/68
--- NOTE | 2022-09-28 07:26 | NUR ---
REFINING STILL OPERATOR OPENING NOTES RECEIVED PATIENT ASLEEP IN BED, EASILY AROUSABLE TO STIMULI. HOB ELEVATED. PT IS A/O X1. NON-VERBAL, NO S/S OF PAIN OR ANY DISCOMFORTS OBSERVED AT THIS TIME. ON 02 VIA N/C @ 2LPM, TOLERATING WELL, BREATHING EVEN AND UNLABORED. ON TELE-MONITOR WITH CURRENT READING OF ST, HR 105, NO S/S OF CARDIAC DISTRESS NOTED AT THIS TIME. TEAGUE IN PLACE DRAINING CLEAR YELLOW URINE VIA GRAVITY. G-TUBE IN PLACE, FEEDING OF JEVITY 1.2 CURRENTLY RUNNING @ 50ML/HR , TOLERATING WELL. ASPIRATION AND SAFETY PRECAUTIONS IN PLACE: BED IN LOWEST LOCKED POSITION WITH SR UP X3, BED ALARM ON AND CALL LIGHT W/IN REACH. WILL CONTINUE TO MONITOR PT.
[2022-09-28] MEDS: ACIDOPHILUS/BULGARICUS 1 EACH TAB.CHEW GT SCH (08:34)
[2022-09-28] MEDS: DOCUSATE SODIUM LIQ 100 MG/10 ML UDC GT SCH ×2 (08:34→16:34)
[2022-09-28] MEDS: MULTIVIT W/MINERALS 1 TAB TABLET GT SCH (08:34)
[2022-09-28] MEDS: OLANZAPINE 10 MG TABLET GT SCH ×2 (08:34→16:34)
[2022-09-28] MEDS: QUETIAPINE FUMARATE 25 MG TABLET GT SCH ×2 (08:34→16:34)
[2022-09-28] MEDS: PANTOPRAZOLE 40 MG VIAL IV SCH ×2 (08:35→16:34)
[2022-09-28] MEDS: FLUOXETINE HCL 20 MG CAPSULE GT SCH (08:35)
[2022-09-28] MEDS: CHOLECALCIFEROL 1,000 UNIT TABLET (VIT D3) GT SCH (08:35)
[2022-09-28] MEDS: PRIMIDONE 250 MG TABLET GT SCH ×3 (08:35→16:34)
[2022-09-28] MEDS: POLYETHYLENE GLYCOL 3350 17 GM POWD.PACK GT SCH (08:35)
[2022-09-28] MEDS: POLYVINYL ALCOHOL 15 ML BOTTLE EACHEYE SCH ×4 (08:37→20:35)
[2022-09-28] MEDS: PROPRANOLOL HCL 10 MG TABLET GT SCH ×2 (08:41→16:35)
--- NOTE | 2022-09-28 09:07 | NUR ---
WOUND CARE CONSULT: PT PRESENTS WITH DRY ESCHAR TO SACRUM WITH SURROUNDING SCARRING AND RT KNEE DRY ABRASION, PRESENT ON ADMISSION. DR RUSSELL CALLED FOR SURGICAL CONSULT. DISCUSSED SKIN PROTECTION WITH NURSING STAFF. FIRST STEP LOW AIRLOSS MATTRESS IS ORDERED. IN AGREEMENT WITH PLAN OF CARE. Addendum: 09/28/22 at 0908 by RADHA LOVELACE WNDNU Amended: Links added.
[2022-09-28] MEDS: ACETAMINOPHEN 650 MG/20.3 ML UDC GT SCH ×2 (12:23→20:36)
--- NOTE | 2022-09-28 16:12 | NUR ---
RN NOTES CALLED STUDY ASSISTANT ELIZABETH HANEY AND STATED THAT PT WILL BE DC BACK TO [facility] TODAY, JUST AWAITING AUTHORIZATION FROM INSURANCE. ELIZABETH SAID THAT IT'S OK TO CALL AND GIVE TO REPORT TO THE SNF. CALLED [facility] TO REPORT, SPOKED TO JERROD FROM ADMISSION AND SHE SAID THAT PT WILL GO TO [facility] BUT THEY HAVE A 10PM CUT OFF FOR ADMISSION.
--- NOTE | 2022-09-28 17:17 | NUR ---
RN NOTES PER CM NOTES, DISCHARGE CANCELLED TODAY BECAUSE OF INSURANCE AUTHORIZATION ISSUE.
--- NOTE | 2022-09-28 18:44 | NUR ---
COMPRESSOR OPERATOR ADJUSTER CLOSING NOTES PATIENT IN BED ASLEEP AT THIS TIME, EASILY AWAKENS. HOB ELEVATED. A/O X1. PT IS CONFUSED AND NOTED SPEAKING INCOMPREHENSIBLE WORDS TODAY. MAINTAINED ON SUPPLEMENTAL 02 VIA N/C @ 2LPM, TOLERATING WELL, BREATHING EVEN AND UNLABORED. ON TELE-MONITOR WITH CURRENT READING OF ST, HR 102, NO S/S OF CARDIAC DISTRESS NOTED DURING SHIFT. IV ACCESS ON LAC G#18 INTACT WITH IVF OF NS @ 50ML/HR INFUSING WELL, NO S/S OF INFILTRATION NOTED. TEAGUE IN PLACE AND DRAINING CLEAR YELLOW URINE VIA GRAVITY. G-TUBE IN PLACE WITH FEEDING OF JEVITY 1.2 @ 65ML/HR, TOLERATING WELL. PT TURNED AND REPOSITIONED Q 2HRS AND PRN. ALL NEEDS ANTICIPATED AND MET. ASPIRATION AND SAFETY PRECAUTIONS MAINTAINED: BED IN LOWEST LOCKED POSITION WITH SR UP X3, HOB ELEVATED AT ALL TIMES, BED ALARM ON AND CALL LIGHT W/IN REACH. WILL ENDORSED JUNE TO AIRPLANE AND ENGINE INSPECTOR NURSE.
--- NOTE | 2022-09-28 19:30 | NUR ---
POTATO CHIP PROCESSING SUPERVISOR OPENING NOTE RECEIVED PATIENT IN BED, WITH HOB ELEVATED, WITH EYES CLOSED BUT EASY TO AROUSE AND RESPONDS TO VERBAL AND TACTILE STIMULI. AFEBRILE AND NOT IN ANY FORM OF ACUTE DISTRESS. ON O2 INHALATION VIA NASAL CANNULA AT 2LPM. WITH INTACT G-TUBE, NO RESIDUAL NOTED AND WITH ONGOING FEEDING OF JEVITY 1.2 AT 65ML/HR. WITH IV ACCESS ON LAC 18G RUNNING WITH NS AT 50ML/HR. SAFETY MEASURES IN PLACE. KEPT BED IN LOCKED AND IN LOW POSITION. SIDE RAILS UP X2. CALL LIGHT WITHIN EASY REACH.
[2022-09-28 20:00] VITALS: BP 113/66
[2022-09-28] MEDS: ATORVASTATIN 40 MG TABLET GT SCH (21:21)
[2022-09-28] MEDS: JEVITY 1.2 CAL 1,000 ML BOTTLE GT PRN (21:57)
[2022-09-29] MEDS: IPRATROPIUM NEB FS 0.5 MG/2.5 ML AMPUL.NEB NEB SCH ×4 (01:33→20:16)
[2022-09-29] MEDS: IV NS 0.9% 1,000 ML IV PRN (01:46)
[2022-09-29] MEDS: VANCOMYCIN 1.25 GM in IV D5W 250 ML IV SCH ×2 (03:30→15:11)
[2022-09-29] MEDS: PHENYTOIN SODIUM IV 100 MG/2ML VIAL IV SCH ×3 (05:32→20:53)
--- NOTE | 2022-09-29 06:20 | NUR ---
SANITARY ENGINEERING TEACHER NOTE NOTED INFILTRATION ON CURRENT IV SITE (LEFT ANTECUBITAL). REMOVED OLD LINE AND REINSERTED ANOTHER IV ACCESS ON L HAND AND NOTED WITH GOOD BACK FLOW. PATIENT TOLERATED THE PROCEDURE WELL.
--- NOTE | 2022-09-29 06:30 | NUR ---
CLIENT COORDINATOR CLOSING NOTE PATIENT IN BED, WITH HOB ELEVATED, ASLEEP BUT EASY TO AROUSE AND RESPONDS TO VERBAL AND TACTILE STIMULI. AFEBRILE AND NOT IN ANY FORM OF ACUTE DISTRESS. ON O2 INHALATION VIA NASAL CANNULA AT 2LPM. ON TELE MONITORING WITH CURRENT READING OF ST 102. WITH INTACT G-TUBE, NO RESIDUAL NOTED; WITH ONGOING FEEDING OF JEVITY 1.2 AT 65ML/HR. WITH IV ACCESS ON L HAND 22G RUNNING WITH NS AT 50ML/HR. MEDICATED ORDERED. CONTINUOUS ON IV ATB, MONITORED FOR ANY ADVERSE REACTION. SAFETY MEASURES IN PLACE. KEPT BED IN LOCKED AND IN LOW POSITION. SIDE RAILS UP X2. CALL LIGHT WITHIN EASY REACH. CONSTANT VISUAL CHECK DONE TO ENSURE SAFETY. ALL NURSING NEEDS ATTENDED. ENDORSED TO INCOMING SHIFT FOR CONTINUITY OF CARE.
[2022-09-29 07:14] LABS: CALCIUM, SERUM 7.7 mg/dL (8.5-10.1); CREATININE 0.5 mg/dL (0.6-1.3); POTASSIUM 4.2 mmol/L (3.5-5.1)
[2022-09-29 08:00] VITALS: BP 122/73
[2022-09-29] MEDS: CLINDAMYCIN 900 MG in IV D5W 50 ML IV SCH ×2 (08:00→16:06)
[2022-09-29] MEDS: POLYVINYL ALCOHOL 15 ML BOTTLE EACHEYE SCH ×4 (09:00→20:53)
[2022-09-29] MEDS: FLUOXETINE HCL 20 MG CAPSULE GT SCH (10:45)
[2022-09-29] MEDS: MULTIVIT W/MINERALS 1 TAB TABLET GT SCH (10:45)
[2022-09-29] MEDS: PANTOPRAZOLE 40 MG VIAL IV SCH ×2 (10:45→18:57)
[2022-09-29] MEDS: OLANZAPINE 10 MG TABLET GT SCH ×2 (10:46→18:27)
[2022-09-29] MEDS: DOCUSATE SODIUM LIQ 100 MG/10 ML UDC GT SCH ×3 (10:46→18:42)
[2022-09-29] MEDS: PRIMIDONE 250 MG TABLET GT SCH ×3 (10:46→17:00)
[2022-09-29] MEDS: CHOLECALCIFEROL 1,000 UNIT TABLET (VIT D3) GT SCH (10:47)
[2022-09-29] MEDS: POLYETHYLENE GLYCOL 3350 17 GM POWD.PACK GT SCH (10:47)
[2022-09-29] MEDS: ACIDOPHILUS/BULGARICUS 1 EACH TAB.CHEW GT SCH (10:55)
[2022-09-29] MEDS: PROPRANOLOL HCL 10 MG TABLET GT SCH ×2 (10:55→18:43)
[2022-09-29] MEDS: QUETIAPINE FUMARATE 25 MG TABLET GT SCH ×3 (10:55→18:43)
[2022-09-29] MEDS: ACETAMINOPHEN 650 MG/20.3 ML UDC GT SCH ×2 (13:05→20:53)
[2022-09-29 16:00] VITALS: BP 113/59
--- NOTE | 2022-09-29 19:43 | NUR ---
INFORMATION TECHNOLOGY PROFESSOR OPENING NOTE PATIENT IN BED, WITH HOB ELEVATED, ASLEEP BUT EASY TO AROUSE AND RESPONDS TO VERBAL AND TACTILE STIMULI. AFEBRILE AND NOT IN ANY FORM OF ACUTE DISTRESS. ON O2 INHALATION VIA NASAL CANNULA AT 2LPM. ON TELE MONITORING WITH CURRENT READING OF ST 102. WITH INTACT G-TUBE, NO RESIDUAL NOTED; WITH ONGOING FEEDING OF JEVITY 1.2 AT 65ML/HR. WITH IV ACCESS ON L HAND 22G RUNNING WITH NS AT 50ML/HR. SAFETY MEASURES IN PLACE. KEPT BED IN LOCKED AND IN LOW POSITION. SIDE RAILS UP X2. CALL LIGHT WITHIN EASY REACH. ALL NURSING NEEDS ATTENDED.
[2022-09-29 20:00] VITALS: BP 114/67
[2022-09-29] MEDS: ATORVASTATIN 40 MG TABLET GT SCH (22:17)
[2022-09-29 22:43] VITALS: BP 114/67
--- NOTE | 2022-09-30 00:32 | NUR ---
RN NOTE NOTED PT HAS SWELLING ON HAND WHERE IV ACCESS IS PT SAYING IT HURST WHEN ITS FLUSHED. ATTEMPTED TO PUT IN NEW IV ACCESS BUT PT HAS EDEMA ON BOTH ARMS. CHARGE NURSE MADE AWARE ICU NURSE CALLED TO ATTEMPT IV INSERTION WITH NO SUCCESS. NURSING PHOTO MACHINE OPERATOR MADE AWARE. GROUP TESTER SIMONA RYAN ORDERED MIDLINE.PER NURSING SUPER VISOR NO ONE IS AVAILABLE AT THIS TIME GROUP TESTER AWARE. TR CABRERA CALL HOLD ATX FOR NOW AND CHANGE IV DILANTIN TO GT FORM. ORDERS. CARRIED OUT.
[2022-09-30] MEDS: IPRATROPIUM NEB FS 0.5 MG/2.5 ML AMPUL.NEB NEB SCH ×4 (02:06→19:52)
[2022-09-30] MEDS: VANCOMYCIN 1.25 GM in IV D5W 250 ML IV SCH ×2 (03:00→14:15)
[2022-09-30] MEDS: PHENYTOIN SUSP UDC 100 MG/4 ML UDC GT SCH ×3 (06:32→21:28)
--- NOTE | 2022-09-30 06:47 | NUR ---
RN NOTE PT KEEPS TRYING TO PULL OUT TEAGUE CATHETER DESPITE TRYING TO HIDE LINES. PLACED PT ON SOFT WRIST L RESTRAINT FOR SAFETY.
--- NOTE | 2022-09-30 07:20 | NUR ---
RN OPENING NOTES RECEIVED PATIENT ASLEEP IN BED, EASILY AROUSABLE TO STIMULI. A/O X1. NON-VERBAL, NO S/SX OF PAIN OR ANY DISCOMFORT OBSERVED AT THIS TIME. ON 02 VIA N/C @ 2LPM, TOLERATING WELL, BREATHING EVEN AND UNLABORED. WITH TEAGUE IN PLACE DRAINING CLEAR YELLOW URINE VIA GRAVITY. G-TUBE IN PLACE, WITH G-TUBE FEEDING OF JEVITY 1.2 CURRENTLY RUNNING @ 65ML/HR , TOLERATING WELL. HOB ELEVATED. ASPIRATION AND SAFETY PRECAUTIONS IN PLACE. BED IN LOWEST LOCKED POSITION, SR UP X3, BED ALARM ON AND PLACED CALL LIGHT WITHIN EASY REACH. WILL CONTINUE TO MONITOR PATIENT.
[2022-09-30] MEDS: CLINDAMYCIN 900 MG in IV D5W 50 ML IV SCH ×4 (08:21→16:17)
[2022-09-30 08:26] LABS: CALCIUM, SERUM 8.5 mg/dL (8.5-10.1); CREATININE 0.4 mg/dL (0.6-1.3); POTASSIUM 4.1 mmol/L (3.5-5.1)
[2022-09-30] MEDS: PANTOPRAZOLE 40 MG VIAL IV SCH ×2 (08:58→16:15)
[2022-09-30] MEDS: OLANZAPINE 10 MG TABLET GT SCH ×2 (08:58→16:15)
[2022-09-30] MEDS: POLYETHYLENE GLYCOL 3350 17 GM POWD.PACK GT SCH (08:58)
[2022-09-30] MEDS: CHOLECALCIFEROL 1,000 UNIT TABLET (VIT D3) GT SCH (08:59)
[2022-09-30] MEDS: FLUOXETINE HCL 20 MG CAPSULE GT SCH (08:59)
[2022-09-30] MEDS: ACIDOPHILUS/BULGARICUS 1 EACH TAB.CHEW GT SCH (08:59)
[2022-09-30] MEDS: PROPRANOLOL HCL 10 MG TABLET GT SCH ×2 (09:00→16:16)
[2022-09-30] MEDS: PRIMIDONE 250 MG TABLET GT SCH ×3 (09:00→16:16)
[2022-09-30] MEDS: MULTIVIT W/MINERALS 1 TAB TABLET GT SCH (09:00)
[2022-09-30] MEDS: POLYVINYL ALCOHOL 15 ML BOTTLE EACHEYE SCH ×4 (09:12→21:27)
[2022-09-30] MEDS: ACETAMINOPHEN 650 MG/20.3 ML UDC GT SCH ×2 (12:16→21:26)
[2022-09-30] MEDS: DOCUSATE SODIUM LIQ 100 MG/10 ML UDC GT SCH (16:16)
[2022-09-30] MEDS: QUETIAPINE FUMARATE 25 MG TABLET GT SCH (16:16)
[2022-09-30] MEDS: JEVITY 1.2 CAL 1,000 ML BOTTLE GT PRN (17:34)
--- NOTE | 2022-09-30 18:46 | NUR ---
RN CLOSING NOTES PATIENT ASLEEP IN BED, EASILY AROUSABLE TO STIMULI. NON-VERBAL, NO S/SX OF PAIN OR ANY DISCOMFORT. STABLE ON 02 INHALATION VIA N/C @ 2LPM, BREATHING EVEN AND UNLABORED. WITH TEAGUE IN PLACE DRAINING CLEAR YELLOW URINE VIA GRAVITY. G-TUBE IN PLACE, WITH G-TUBE FEEDING OF JEVITY 1.2 CURRENTLY RUNNING @ 65ML/HR , TOLERATING WELL. ALL DUE MEDS GIVEN. HOB ELEVATED. ASPIRATION AND SAFETY PRECAUTIONS IN PLACE. LEFT SOFT WRIST RESTRAINT IN PLACE. BED IN LOWEST LOCKED POSITION, SR UP X3, BED ALARM ON AND PLACED CALL LIGHT WITHIN EASY REACH. WILL ENDORSE TO NEXT SHIFT FOR CONTINUITY OF CARE.
[2022-09-30 21:08] VITALS: BP 126/66
[2022-09-30] MEDS: ATORVASTATIN 40 MG TABLET GT SCH (21:27)
[2022-10-01] MEDS: IPRATROPIUM NEB FS 0.5 MG/2.5 ML AMPUL.NEB NEB SCH ×2 (01:54→20:20)
[2022-10-01] MEDS: VANCOMYCIN 1.25 GM in IV D5W 250 ML IV SCH ×2 (03:00→14:31)
[2022-10-01] MEDS: PHENYTOIN SUSP UDC 100 MG/4 ML UDC GT SCH ×3 (05:18→22:34)
[2022-10-01 07:25] LABS: CALCIUM, SERUM 8.2 mg/dL (8.5-10.1); CREATININE 0.5 mg/dL (0.6-1.3); POTASSIUM 4.5 mmol/L (3.5-5.1)
--- NOTE | 2022-10-01 07:30 | NUR ---
RN OPENING NOTES RECEIVED PATIENT ASLEEP IN BED, EASILY AROUSED TO STIMULI. NON-VERBAL, NO S/SX OF PAIN OR ANY DISCOMFORT OBSERVED AT THIS TIME. CONTINUE ON 02 VIA N/C @ 2LPM, TOLERATING WELL, BREATHING EVEN AND UNLABORED. WITH SOFT LEFT WRIST RESTRAINT IN PLACE. WITH TEAGUE IN PLACE DRAINING CLEAR YELLOW URINE VIA GRAVITY. G-TUBE IN PLACE, WITH G-TUBE FEEDING OF JEVITY 1.2 CURRENTLY RUNNING @ 65ML/HR , TOLERATING WELL. HOB ELEVATED. ASPIRATION AND SAFETY PRECAUTIONS IN PLACE. BED IN LOWEST LOCKED POSITION, SR UP X3, BED ALARM ON AND PLACED CALL LIGHT WITHIN EASY REACH. WILL CONTINUE TO MONITOR PATIENT.
[2022-10-01 08:00] VITALS: BP 147/81
--- NOTE | 2022-10-01 08:03 | NUR ---
This patient has been stable throughout the night. He has received his antibiotics and his maintenance IVF continue without interruption. Vital signs remain stable. Tube feeding is infusing without complicatios having been flushed during medication administration.
[2022-10-01] MEDS: CLINDAMYCIN 900 MG in IV D5W 50 ML IV SCH ×5 (08:24→23:51)
[2022-10-01] MEDS: POLYETHYLENE GLYCOL 3350 17 GM POWD.PACK GT SCH (08:38)
[2022-10-01] MEDS: OLANZAPINE 10 MG TABLET GT SCH ×2 (08:40→16:15)
[2022-10-01] MEDS: ACIDOPHILUS/BULGARICUS 1 EACH TAB.CHEW GT SCH (08:40)
[2022-10-01] MEDS: CHOLECALCIFEROL 1,000 UNIT TABLET (VIT D3) GT SCH (08:40)
[2022-10-01] MEDS: PANTOPRAZOLE 40 MG VIAL IV SCH ×2 (08:40→16:15)
[2022-10-01] MEDS: PROPRANOLOL HCL 10 MG TABLET GT SCH ×2 (08:40→16:16)
[2022-10-01] MEDS: QUETIAPINE FUMARATE 25 MG TABLET GT SCH ×2 (08:40→16:15)
[2022-10-01] MEDS: MULTIVIT W/MINERALS 1 TAB TABLET GT SCH (08:40)
[2022-10-01] MEDS: DOCUSATE SODIUM LIQ 100 MG/10 ML UDC GT SCH ×2 (08:40→16:15)
[2022-10-01] MEDS: PRIMIDONE 250 MG TABLET GT SCH ×3 (08:40→16:15)
[2022-10-01] MEDS: FLUOXETINE HCL 20 MG CAPSULE GT SCH (08:40)
[2022-10-01] MEDS: POLYVINYL ALCOHOL 15 ML BOTTLE EACHEYE SCH ×4 (08:41→22:33)
[2022-10-01] MEDS: ACETAMINOPHEN 650 MG/20.3 ML UDC GT SCH ×2 (12:04→22:34)
[2022-10-01 16:00] VITALS: BP 153/93
--- NOTE | 2022-10-01 18:44 | NUR ---
RN CLOSING NOTE PATIENT RESTING IN BED, EASILY AROUSABLE TO STIMULI. REMAINS NON-VERBAL, NO S/SX OF PAIN OR ANY DISCOMFORT. STABLE ON 02 INHALATION VIA N/C @ 2LPM, BREATHING EVEN AND UNLABORED. WITH F/C INTACT AND PATENT DRAINING CLEAR YELLOW URINE VIA GRAVITY. G-TUBE IN PLACE, NO RESIDUAL NOTED. WITH G-TUBE FEEDING OF JEVITY 1.2 CURRENTLY RUNNING @ 65ML/HR , TOLERATING WELL. ALL DUE MEDS GIVEN. HOB ELEVATED. ASPIRATION AND SAFETY PRECAUTIONS IN PLACE. LEFT SOFT WRIST RESTRAINT IN PLACE. BED IN LOWEST LOCKED POSITION, SR UP X3, BED ALARM ON AND PLACED CALL LIGHT WITHIN EASY REACH. WILL ENDORSE TO NEXT SHIFT FOR CONTINUITY OF CARE.
--- NOTE | 2022-10-01 19:20 | NUR ---
MS RN OPENING NOTES PATIENT IS SLEEPING IN BED WITH THE HOB ELEVATED. A/O X1. NON-VERBAL. NO S/S OF HAVING PAIN OR DISTRESS. HE IS ON 2 LPM O2 VIA N/C @ TOLERATING WELL, BREATHING EVEN AND UNLABORED. PATIENT HAS TEAGUE CATHETER, DRAINING FREELY BY GRAVITY. THE URINE COLOR IS YELLOW. G-TUBE PLACEMENT IS CHECKED; PATENT AND INTACT. FLUSHED WITH 30 ML OF WATER. G-TUBE FEEDING OF JEVITY 1.2 CURRENTLY RUNNING @ 65ML/HR , TOLERATING WELL. IV ACCESS IS AT HIS R UPPER ARM, RUNNING NS @ 50 ML/HR. HOB ELEVATED ABOVE 45 DEGREE. ASPIRATION AND SAFETY PRECAUTIONS ARE IN PLACE. BED IN LOWEST LOCKED POSITION, SR UP X3, BED ALARM ON AND PLACED CALL LIGHT WITHIN EASY REACH. WILL CONTINUE MONITORING THE PATIENT AND PROVIDE THE CARE PATIENT NEEDS.
[2022-10-01 20:00] VITALS: BP 129/69
[2022-10-01] MEDS: ATORVASTATIN 40 MG TABLET GT SCH (22:34)
[2022-10-02] MEDS: IPRATROPIUM NEB FS 0.5 MG/2.5 ML AMPUL.NEB NEB SCH ×3 (02:09→13:43)
[2022-10-02] MEDS: VANCOMYCIN 1.25 GM in IV D5W 250 ML IV SCH (02:18)
[2022-10-02] MEDS: IV NS 0.9% 1,000 ML IV PRN (02:36)
[2022-10-02] MEDS: PHENYTOIN SUSP UDC 100 MG/4 ML UDC GT SCH ×2 (04:26→12:26)
[2022-10-02] MEDS: JEVITY 1.2 CAL 1,000 ML BOTTLE GT PRN (05:34)
[2022-10-02 06:38] LABS: CALCIUM, SERUM 8.4 mg/dL (8.5-10.1); CREATININE 0.5 mg/dL (0.6-1.3); POTASSIUM 4.3 mmol/L (3.5-5.1)
--- NOTE | 2022-10-02 07:30 | NUR ---
RN MS NOTES PT IN BED, ASLEEP, EASY TO AROUSE, NO SIGN OF PAIN, NOT IN DISTRESS, GT FEEDING INFUSING WELL, CALL LIGHT WITHIN REACH, F/C IN PLACE, DRAINING WELL, KEPT WARM AND COMFORTABLE IN BED.
--- NOTE | 2022-10-02 07:40 | NUR ---
MS RN CLOSING NOTES PATIENT IS SLEEPING IN BED WITH THE HOB ELEVATED. HE IS ON 2 LPM O2 VIA NC. NO S/S OF HAVING PAIN OR DISTRESS. TOLERATING WELL, BREATHING EVEN AND UNLABORED. PATIENT HAS TEAGUE CATHETER, DRAINING FREELY BY GRAVITY. THE URINE COLOR IS YELLOW. G-TUBE PLACEMENT IS CHECKED; PATENT AND INTACT. G-TUBE FEEDING OF JEVITY 1.2 CURRENTLY RUNNING @ 65ML/HR , TOLERATING WELL. IV ACCESS IS AT HIS R UPPER ARM, RUNNING NS @ 50 ML/HR. HOB ELEVATED ABOVE 45 DEGREE. ASPIRATION AND SAFETY PRECAUTIONS ARE IN PLACE. BED IN LOWEST LOCKED POSITION, SR UP X3, BED ALARM ON AND PLACED CALL LIGHT WITHIN EASY REACH. WILL ENDORSE THE NEXT SHIFT NURSE FOR CONTINUING PATIENT CARE.
[2022-10-02 08:00] VITALS: BP 120/67
[2022-10-02] MEDS: ACIDOPHILUS/BULGARICUS 1 EACH TAB.CHEW GT SCH (08:40)
[2022-10-02] MEDS: QUETIAPINE FUMARATE 25 MG TABLET GT SCH (08:40)
[2022-10-02] MEDS: PRIMIDONE 250 MG TABLET GT SCH ×2 (08:40→12:26)
[2022-10-02] MEDS: DOCUSATE SODIUM LIQ 100 MG/10 ML UDC GT SCH (08:40)
[2022-10-02] MEDS: MULTIVIT W/MINERALS 1 TAB TABLET GT SCH (08:40)
[2022-10-02] MEDS: POLYETHYLENE GLYCOL 3350 17 GM POWD.PACK GT SCH (08:40)
[2022-10-02 08:41] VITALS: BP 120/67
[2022-10-02] MEDS: PROPRANOLOL HCL 10 MG TABLET GT SCH (08:41)
[2022-10-02] MEDS: CHOLECALCIFEROL 1,000 UNIT TABLET (VIT D3) GT SCH (08:42)
[2022-10-02] MEDS: FLUOXETINE HCL 20 MG CAPSULE GT SCH (08:42)
[2022-10-02] MEDS ORDERED: PANTOPRAZOLE 40 MG/PACK PACK GT SCH (09:00)
[2022-10-02] MEDS: POLYVINYL ALCOHOL 15 ML BOTTLE EACHEYE SCH ×2 (09:08→12:20)
[2022-10-02] MEDS: OLANZAPINE 10 MG TABLET GT SCH (09:08)
[2022-10-02] MEDS: ACETAMINOPHEN 650 MG/20.3 ML UDC GT SCH (12:26)
[2022-10-02] MEDS ORDERED: CLINDAMYCIN HCL 150 MG CAPSULE PO SCH (13:00)
--- NOTE | 2022-10-02 16:15 | NUR ---
RN MS NOTES PT IN BED, AWAKE, ALERT TO SELF, NO SIGN OF PAIN OR DISTRESS, DISCHARGE ORDER GIVEN BY MD PT INFORMED OF DISCHARGE, REPORT GIVEN TO BENJI RN AT [facility], BELONGINGS ACCOUNTED FOR, PICKED UP BY 2 AMBULANCE PERSONNEL, LEFT VIA GUERNEY IN STABLE CONDITION.
== END 2022-10-02 15:45 | DRG 249 ==
LOC: ER 08:50 → TELE 14:34 → MED 09-29 16:23
PROVIDERS: ADMIT Registered Nurse; ATTEND Registered Nurse
PROC: 05HB33Z Insertion of Infusion Device into Right Basilic Vein, Percutaneous Approach (ICD-10-PCS; principal; 2022-09-30)
DX: A08.4 Viral intestinal infection, unspecified (principal); G93.41 Metabolic encephalopathy; C85.90 Non-Hodgkin lymphoma, unspecified, unspecified site; R53.2 Functional quadriplegia; I50.9 Heart failure, unspecified; I11.0 Hypertensive heart disease with heart failure; K21.9 Gastro-esophageal reflux disease without esophagitis; D64.9 Anemia, unspecified; E78.5 Hyperlipidemia, unspecified; Z20.822 Contact with and (suspected) exposure to COVID-19; G40.909 Epilepsy, unspecified, not intractable, without status epilepticus; Z86.73 Personal history of transient ischemic attack (TIA), and cerebral infarction without residual deficits; Z88.0 Allergy status to penicillin; Z79.82 Long term (current) use of aspirin; Z79.899 Other long term (current) drug therapy; Z93.1 Gastrostomy status; Z74.01 Bed confinement status; R13.10 Dysphagia, unspecified; J44.9 Chronic obstructive pulmonary disease, unspecified; R91.8 Other nonspecific abnormal finding of lung field; K59.00 Constipation, unspecified; R33.9 Retention of urine, unspecified; F09 Unspecified mental disorder due to known physiological condition; J98.11 Atelectasis; S80.211A Abrasion, right knee, initial encounter; X58.XXXA Exposure to other specified factors, initial encounter; Y92.9 Unspecified place or not applicable; R06.89 Other abnormalities of breathing; R47.9 Unspecified speech disturbances
CPT/HCPCS: 36415; 36600; 71045-TC; 71250-TC; 80048-TC; 80076-TC; 80202-TC; 82803-TC; 83605-TC; 83690-TC; 83735-TC; 84100-TC; 84443-TC; 84484-TC; 85025-TC; 85730-TC; 86850-TC; 87040-TC; 87081-TC; 87086-TC; 94799-TC; C9113; C9803; G0378; J0692; J1165; J2270; J2405; J3370; J3490; J7030; J7060

== ENCOUNTER 2023-05-22 14:46 | Inpatient (IN) | payer OTHER ==
[~2023-05-22] VITALS: Ht 182.9 cm; Wt 70.3 kg
[~2023-05-22 14:46] MED LIST changes: +ACET-868 GT; -ACET-868 PO; -ASPI-1169 PO; +ATOR40TA GT; -ATOR40TA PO; +CHOL100062 GT; -CHOL100062 PO; -DIPH25CA51 PO; +LACT1CAP69 GT; -LACT1CAP69 PO; -MAG30ORA PO; +MAGN400O6 GT; -MAGN400O6 PO; +MULT-447 GT; -MULT-447 PO; -ONDA4TAB5 PO; +PRIM250T8 GT; -PRIM250T8 PO; +PROP20TA7 GT; -PROP20TA7 PO
[2023-05-22] MEDS ORDERED: methylPREDNISolone SOD SUCC 40 MG/ML VIAL IV ONE (16:00)
[2023-05-22] MEDS ORDERED: methylPREDNISolone SOD SUCC 40 MG/ML VIAL ONE (16:05)
[2023-05-22 16:36] LABS: BASOPHILS # (AUTO) 0.1 K/uL (0.0-0.2); BASOPHILS % (AUTO) 0.7 % (0.0-2.0); EOSINOPHILS # (AUTO) 1.3 K/uL (0.0-0.7); EOSINOPHILS % (AUTO) 12.9 % (0.0-6.0); HEMATOCRIT 26 % (39-51); HEMOGLOBIN 8.2 g/dL (13.5-17.5); LYMPHOCYTES # (AUTO) 0.9 K/uL (0.8-4.8); LYMPHOCYTES % (AUTO) 8.6 % (20.0-44.0); MEAN CORPUSCULAR HEMOGLOBIN 24 PG (26.0-33.0); MEAN CORPUSCULAR HGB CONC 32 g/dl (31.0-36.0); MEAN CORPUSCULAR VOLUME 75 fL (80-96); MONOCYTES # (AUTO) 1.1 K/uL (0.1-1.30); MONOCYTES % (AUTO) 10.4 % (2.0-12.0); NEUTROPHILS # (AUTO) 6.9 K/uL (1.8-8.9); NEUTROPHILS % (AUTO) 67.4 % (43.0-81.0); PLATELET COUNT (AUTO) 602 K/uL (150-450); RED BLOOD CELL COUNT(AUTO) 3.42 MIL/uL (4.5-6.0); RED CELL DISTRIBUTION WIDTH 16.7 % (11.5-15.0); WHITE BLOOD COUNT (AUTO) 10.3 K/uL (4.3-11.0)
[2023-05-22 16:44] LABS: CALCIUM, SERUM 8.1 mg/dL (8.5-10.1); CREATININE 0.6 mg/dL (0.6-1.3); POTASSIUM 4.9 mmol/L (3.5-5.1)
[2023-05-22 16:49] LABS: PARTIAL THROMBOPLASTIN TIME 32.2 SEC (24.3-34.3); PROTHROMBIN TIME 10.5 SECS (9.2-11.1)
[2023-05-22 16:50] LABS: BILIRUBIN,DIRECT 0.1 mg/dL (0.0-0.2); BILIRUBIN,TOTAL 0.2 mg/dL (0.2-1.0); TOTAL PROTEIN, SERUM 6.6 g/dL (6.4-8.2)
[2023-05-22 16:52] LABS: LACTIC ACID 1.3 mmol/L (0.4-2.0)
[2023-05-22 17:02] LABS: ALBUMIN 1.4 g/dL (3.4-5.0)
[2023-05-22 17:06] LABS: EOSINOPHILS % (MANUAL) 16 % (0-4); LYMPHOCYTES % (MANUAL) 7 % (16-48); MONOCYTES % (MANUAL) 5 % (0-11.0); MYELOCYTES % 1 % (0-0); NEUTROPHILS % (MANUAL) 71 (42-76); PLATELET ESTIMATE INCREASED
[2023-05-22] MEDS ORDERED: DOCU250C14 GT (17:11)
[2023-05-22] MEDS ORDERED: CHLO473M5 MM (17:11)
[2023-05-22] MEDS ORDERED: CRAN425C6 GT (17:11)
[2023-05-22] MEDS ORDERED: LACT100027 GT (17:11)
[2023-05-22] MEDS ORDERED: DOCU-141 PO (17:11)
[2023-05-22] MEDS ORDERED: MUPI22OI7 TOP (17:11)
[2023-05-22] MEDS ORDERED: ASPI-1169 GT (17:11)
[2023-05-22] MEDS ORDERED: NA P133E RC (17:11)
[2023-05-22] MEDS ORDERED: POVI3780 TP (17:11)
[2023-05-22] MEDS ORDERED: SENN-261 GT (17:12)
[2023-05-22] MEDS ORDERED: FLUO20CA36 GT (17:12)
[2023-05-22] MEDS ORDERED: LEVE500T9 GT (17:12)
[2023-05-22] MEDS ORDERED: LEVA15HF4 IH ×2 (17:12)
[2023-05-22] MEDS ORDERED: ACET-2605 GT (17:12)
[2023-05-22] MEDS ORDERED: ASCO-340 GT (17:12)
[2023-05-22] MEDS ORDERED: AMIN30LI2 GT (17:12)
[2023-05-22] MEDS ORDERED: FURO-145 GT (17:12)
[2023-05-22] MEDS ORDERED: MAG HYDROX/AL HYDROX/SIMETH 30 ML UDC GT PRN (20:00)
[2023-05-22] MEDS ORDERED: NA PHOS,M-B/NA PHOS,DI-BA 1 EA ENEMA RC PRN (20:00)
[2023-05-22] MEDS ORDERED: MAGNESIUM HYDROXIDE 30 ML UDC PO PRN (20:00)
[2023-05-22] MEDS ORDERED: ACETAMINOPHEN 325 MG TABLET PO PRN (20:00)
[2023-05-22] MEDS ORDERED: ZOLPIDEM TARTRATE 5 MG TABLET GT PRN (20:00)
[2023-05-22] MEDS ORDERED: MAGNESIUM HYDROXIDE 30 ML UDC GT PRN (20:00)
[2023-05-22] MEDS ORDERED: BISACODYL SUPP (10 MG) 10 MG/SUPP.RECT SUPP.RECT RC PRN (20:00)
[2023-05-22] MEDS ORDERED: Z GUARD REMEDY 4 OZ OINT TP PRN (20:00)
[2023-05-22] MEDS ORDERED: ACETAMINOPHEN 325 MG TABLET MC PRN ×2 (20:00)
[2023-05-22] MEDS ORDERED: ONDANSETRON HCL/PF 4 MG/2 ML VIAL IVP PRN (20:00)
[2023-05-22] MEDS: POLYVINYL ALCOHOL 15 ML BOTTLE EACHEYE SCH (21:00)
[2023-05-22] MEDS ORDERED: ALBUTEROL FS 2.5 MG/0.5 ML VIAL.NEB NEB PRN (21:30)
[2023-05-22] MEDS ORDERED: VANCOMYCIN 1.5 GM in IV D5W 500ml IV ONE (23:00)
[2023-05-22] MEDS: LEVETIRACETAM SOL (5 ML) 100 MG/ML UDC GT SCH (23:04)
[2023-05-22] MEDS: dexaMETHasone SOD PHOSPHATE 10 MG/ML VIAL IV SCH (23:04)
[2023-05-22] MEDS: SENNOSIDES 8.6 MG TABLET GT SCH (23:05)
[2023-05-22] MEDS: ZOLPIDEM TARTRATE 5 MG TABLET GT SCH (23:05)
[2023-05-22] MEDS: ATORVASTATIN 40 MG TABLET GT SCH (23:05)
[2023-05-22] MEDS: FLUOXETINE HCL 20 MG CAPSULE GT SCH (23:05)
[2023-05-22] MEDS: ACETAMINOPHEN ES 500 MG TABLET GT PRN (23:06)
[2023-05-22] MEDS: IV NS 0.9% 1,000 ML IV PRN (23:06)
[2023-05-22 23:12] VITALS: BP 118/57; TEMP 99.1; O2SAT 100
[2023-05-22] MEDS: LEVALBUTEROL HCL NEB 1.25 MG/0.5 ML VIAL.NEB IH SCH (23:30)
[2023-05-22] MEDS ORDERED: VANCOMYCIN 1 GM /D5W 250 ML PB IV ONE (23:53)
[2023-05-23] VITALS: BP 107/51; TEMP 98.7; O2SAT 100
[2023-05-23] MEDS: POLYVINYL ALCOHOL 15 ML BOTTLE EACHEYE SCH ×5 (00:56→21:19)
[2023-05-23 04:00] VITALS: BP 108/55; TEMP 98; O2SAT 100
[2023-05-23] MEDS: dexaMETHasone SOD PHOSPHATE 10 MG/ML VIAL IV SCH ×3 (05:59→21:19)
[2023-05-23 07:03] LABS: BASOPHILS % (AUTO) 0.4 % (0.0-2.0); EOSINOPHILS # (AUTO) 0.1 K/uL (0.0-0.7); EOSINOPHILS % (AUTO) 1.7 % (0.0-6.0); HEMATOCRIT 22 % (39-51); LYMPHOCYTES # (AUTO) 0.9 K/uL (0.8-4.8); LYMPHOCYTES % (AUTO) 13.6 % (20.0-44.0); MEAN CORPUSCULAR HEMOGLOBIN 24 PG (26.0-33.0); MEAN CORPUSCULAR HGB CONC 32 g/dl (31.0-36.0); MEAN CORPUSCULAR VOLUME 75 fL (80-96); MONOCYTES # (AUTO) 0.8 K/uL (0.1-1.30); NEUTROPHILS # (AUTO) 4.6 K/uL (1.8-8.9); NEUTROPHILS % (AUTO) 71.3 % (43.0-81.0); PLATELET COUNT (AUTO) 485 K/uL (150-450); RED CELL DISTRIBUTION WIDTH 16.6 % (11.5-15.0); WHITE BLOOD COUNT (AUTO) 6.4 K/uL (4.3-11.0)
[2023-05-23] MEDS: LEVALBUTEROL HCL NEB 1.25 MG/0.5 ML VIAL.NEB IH SCH ×3 (07:05→23:33)
[2023-05-23 07:26] LABS: CALCIUM, SERUM 8.2 mg/dL (8.5-10.1); CREATININE 0.5 mg/dL (0.6-1.3); MAGNESIUM 2.3 mg/dL (1.8-2.4); PHOSPHORUS 3.6 mg/dL (2.5-4.9); POTASSIUM 4.5 mmol/L (3.5-5.1)
[2023-05-23 08:23] VITALS: BP 106/55; TEMP 98.1; O2SAT 100
[2023-05-23] MEDS: ASPIRIN 81 MG TAB.CHEW GT SCH (08:40)
[2023-05-23] MEDS: LACTOBACILLUS RHAMNOSUS GG 1 EACH CAP.SPRINK GT SCH (08:41)
[2023-05-23] MEDS: LEVETIRACETAM SOL (5 ML) 100 MG/ML UDC GT SCH ×2 (08:42→21:19)
[2023-05-23] MEDS: PROPRANOLOL HCL 10 MG TABLET GT SCH ×2 (08:42→17:00)
[2023-05-23] MEDS: MULTIVIT W/MINERALS 1 TAB TABLET GT SCH (08:49)
[2023-05-23] MEDS: PRIMIDONE 250 MG TABLET GT SCH ×3 (08:49→17:38)
[2023-05-23] MEDS: CHOLECALCIFEROL 1,000 UNIT TABLET (VIT D3) GT SCH (08:50)
[2023-05-23] MEDS: DOXYCYCLINE 100 MG in IV D5W 100 ML IV SCH ×3 (08:50→21:20)
[2023-05-23] MEDS: CHLORHEXIDINE GLUCONATE 15 ML UDC MM SCH (08:50)
[2023-05-23] MEDS: MUPIROCIN OINT 2% 22 GM TUBE NS SCH ×2 (08:51→17:38)
[2023-05-23] MEDS: DOCUSATE SODIUM 100 MG CAPSULE PO SCH (08:51)
[2023-05-23] MEDS ORDERED: SILVER SULFADIAZINE CREAM 400 GM JAR TP SCH (09:00)
[2023-05-23] MEDS ORDERED: DOXYCYCLINE HYCLATE (100 MG) 100 MG TABLET GT SCH (09:00)
[2023-05-23 09:55] LABS: ERYTHROCYTE SEDIMENTATION RATE 73 MM/HR (0-20)
[2023-05-23] MEDS: SILVER SULFADIAZINE CREAM 25 GM TUBE TP SCH ×2 (11:49→21:20)
[2023-05-23 12:00] VITALS: BP 113/56; TEMP 98; O2SAT 100; O2SAT 90
[2023-05-23] MEDS: VANCOMYCIN 1 GM in IV D5W 250 ML IV SCH (14:15)
[2023-05-23 16:00] VITALS: BP 92/45; TEMP 98; O2SAT 98
[2023-05-23] MEDS: PROSOURCE / PROSTAT (PYXIS) 30 ML UDC GT SCH (17:39)
[2023-05-23] MEDS: ASCORBIC ACID 500 MG TABLET GT SCH (17:39)
[2023-05-23] MEDS: DOCUSATE SODIUM 250 MG CAPSULE PO SCH (17:39)
[2023-05-23] MEDS: FUROSEMIDE 20 MG TABLET GT SCH (17:40)
[2023-05-23] MEDS ORDERED: Medication Not On Formulary EA (Cranberry Extract (Cranberry) 850 MG) GT SCH (18:00)
[2023-05-23 20:00] VITALS: BP 118/53; TEMP 98.4; O2SAT 100
[2023-05-23] MEDS: ZOLPIDEM TARTRATE 5 MG TABLET GT SCH (21:21)
[2023-05-23] MEDS: ATORVASTATIN 40 MG TABLET GT SCH (21:21)
[2023-05-23] MEDS: SENNOSIDES 8.6 MG TABLET GT SCH (21:26)
[2023-05-23] MEDS: FLUOXETINE HCL 20 MG CAPSULE GT SCH (21:27)
[2023-05-24] VITALS (7 sets, daily range): BP systolic 94–137; BP diastolic 34–66; TEMP 97.2–98.9; O2SAT 100
[2023-05-24] MEDS: IV NS 0.9% 1,000 ML IV PRN
[2023-05-24] MEDS: VANCOMYCIN 1 GM in IV D5W 250 ML IV SCH ×2 (00:08→11:55)
[2023-05-24] MEDS: dexaMETHasone SOD PHOSPHATE 10 MG/ML VIAL IV SCH ×3 (06:32→20:51)
[2023-05-24] MEDS: LEVALBUTEROL HCL NEB 1.25 MG/0.5 ML VIAL.NEB IH SCH ×3 (07:17→23:46)
[2023-05-24] MEDS: CHLORHEXIDINE GLUCONATE 15 ML UDC MM SCH (09:18)
[2023-05-24] MEDS: PROPRANOLOL HCL 10 MG TABLET GT SCH ×2 (09:18→16:32)
[2023-05-24] MEDS: LEVETIRACETAM SOL (5 ML) 100 MG/ML UDC GT SCH ×2 (09:18→20:50)
[2023-05-24] MEDS: LACTOBACILLUS RHAMNOSUS GG 1 EACH CAP.SPRINK GT SCH (09:19)
[2023-05-24] MEDS: CHOLECALCIFEROL 1,000 UNIT TABLET (VIT D3) GT SCH (09:19)
[2023-05-24] MEDS: ASPIRIN 81 MG TAB.CHEW GT SCH (09:19)
[2023-05-24] MEDS: MULTIVIT W/MINERALS 1 TAB TABLET GT SCH (09:19)
[2023-05-24] MEDS: DOCUSATE SODIUM 100 MG CAPSULE PO SCH (09:19)
[2023-05-24] MEDS: MUPIROCIN OINT 2% 22 GM TUBE NS SCH ×2 (09:20→16:42)
[2023-05-24] MEDS: DOXYCYCLINE 100 MG in IV D5W 100 ML IV SCH ×2 (09:20→20:51)
[2023-05-24] MEDS: SILVER SULFADIAZINE CREAM 25 GM TUBE TP SCH ×2 (09:20→21:07)
[2023-05-24] MEDS: POLYVINYL ALCOHOL 15 ML BOTTLE EACHEYE SCH ×4 (09:20→21:07)
[2023-05-24] MEDS: PRIMIDONE 250 MG TABLET GT SCH ×3 (09:23→16:40)
[2023-05-24 12:53] LABS: CALCIUM, SERUM 7.5 mg/dL (8.5-10.1); CREATININE 0.6 mg/dL (0.6-1.3)
[2023-05-24] MEDS: JEVITY 1.2 CAL 1,000 ML BOTTLE GT PRN (16:24)
[2023-05-24] MEDS: ASCORBIC ACID 500 MG TABLET GT SCH (17:57)
[2023-05-24] MEDS: PROSOURCE / PROSTAT (PYXIS) 30 ML UDC GT SCH (17:57)
[2023-05-24] MEDS: DOCUSATE SODIUM 250 MG CAPSULE PO SCH (17:58)
[2023-05-24] MEDS: FUROSEMIDE 20 MG TABLET GT SCH (18:00)
[2023-05-24] MEDS: SENNOSIDES 8.6 MG TABLET GT SCH (22:40)
[2023-05-24] MEDS: ZOLPIDEM TARTRATE 5 MG TABLET GT SCH (22:41)
[2023-05-24] MEDS: FLUOXETINE HCL 20 MG CAPSULE GT SCH (22:41)
[2023-05-24] MEDS: ATORVASTATIN 40 MG TABLET GT SCH (22:41)
[2023-05-25] VITALS: BP 119/49; TEMP 97.9; O2SAT 100
[2023-05-25 04:00] VITALS: BP 109/46; TEMP 99; O2SAT 100
[2023-05-25] MEDS: dexaMETHasone SOD PHOSPHATE 10 MG/ML VIAL IV SCH ×3 (05:17→21:16)
[2023-05-25 06:11] LABS: CREATININE 0.5 mg/dL (0.6-1.3); POTASSIUM 4.1 mmol/L (3.5-5.1)
[2023-05-25] MEDS: JEVITY 1.2 CAL 1,000 ML BOTTLE GT PRN ×2 (06:40→21:24)
[2023-05-25] MEDS: LEVALBUTEROL HCL NEB 1.25 MG/0.5 ML VIAL.NEB IH SCH ×3 (07:55→23:16)
[2023-05-25 08:00] VITALS: BP 107/48; TEMP 98.5; O2SAT 100
[2023-05-25] MEDS: PROPRANOLOL HCL 10 MG TABLET GT SCH ×2 (09:00→17:00)
[2023-05-25] MEDS: POLYVINYL ALCOHOL 15 ML BOTTLE EACHEYE SCH ×4 (09:08→21:19)
[2023-05-25] MEDS: MUPIROCIN OINT 2% 22 GM TUBE NS SCH ×2 (09:08→16:14)
[2023-05-25] MEDS: DOCUSATE SODIUM 100 MG CAPSULE PO SCH (09:09)
[2023-05-25] MEDS: DOXYCYCLINE 100 MG in IV D5W 100 ML IV SCH ×2 (09:09→21:12)
[2023-05-25] MEDS: LEVETIRACETAM SOL (5 ML) 100 MG/ML UDC GT SCH ×2 (09:09→21:15)
[2023-05-25] MEDS: CHLORHEXIDINE GLUCONATE 15 ML UDC MM SCH (09:09)
[2023-05-25] MEDS: PRIMIDONE 250 MG TABLET GT SCH ×3 (09:09→17:05)
[2023-05-25] MEDS: CHOLECALCIFEROL 1,000 UNIT TABLET (VIT D3) GT SCH (09:09)
[2023-05-25] MEDS: ASPIRIN 81 MG TAB.CHEW GT SCH (09:09)
[2023-05-25] MEDS: MULTIVIT W/MINERALS 1 TAB TABLET GT SCH (09:09)
[2023-05-25] MEDS: LACTOBACILLUS RHAMNOSUS GG 1 EACH CAP.SPRINK GT SCH (09:09)
[2023-05-25] MEDS: SILVER SULFADIAZINE CREAM 25 GM TUBE TP SCH ×2 (09:47→21:18)
[2023-05-25 12:00] VITALS: BP 106/46; TEMP 98.4; O2SAT 100
[2023-05-25] MEDS: ACETAMINOPHEN ES 500 MG TABLET GT PRN (12:46)
[2023-05-25 16:00] VITALS: BP 114/53; TEMP 98.5; O2SAT 100
[2023-05-25] MEDS: FUROSEMIDE 20 MG TABLET GT SCH (17:05)
[2023-05-25] MEDS: DOCUSATE SODIUM 250 MG CAPSULE PO SCH (17:05)
[2023-05-25] MEDS: ASCORBIC ACID 500 MG TABLET GT SCH (17:05)
[2023-05-25] MEDS: PROSOURCE / PROSTAT (PYXIS) 30 ML UDC GT SCH (17:06)
[2023-05-25] MEDS: HYDROCODONE/APAP 5/325MG TABLET GT PRN (17:11)
[2023-05-25 20:00] VITALS: BP 136/67; TEMP 98; O2SAT 100
[2023-05-25] MEDS: SENNOSIDES 8.6 MG TABLET GT SCH (21:15)
[2023-05-25] MEDS: FLUOXETINE HCL 20 MG CAPSULE GT SCH (21:15)
[2023-05-25] MEDS: ATORVASTATIN 40 MG TABLET GT SCH (21:15)
[2023-05-25] MEDS: ZOLPIDEM TARTRATE 5 MG TABLET GT SCH (23:16)
[2023-05-26 01:30] VITALS: BP 138/62; TEMP 98; O2SAT 95
[2023-05-26 04:00] VITALS: BP 133/79; TEMP 97.9; O2SAT 100
[2023-05-26] MEDS: dexaMETHasone SOD PHOSPHATE 10 MG/ML VIAL IV SCH ×2 (04:48→21:28)
[2023-05-26] MEDS: HYDROCODONE/APAP 5/325MG TABLET GT PRN (05:59)
[2023-05-26] MEDS: LEVALBUTEROL HCL NEB 1.25 MG/0.5 ML VIAL.NEB IH SCH ×3 (07:18→23:28)
[2023-05-26 08:00] VITALS: BP 121/51; TEMP 98.4; O2SAT 100
[2023-05-26] MEDS: LACTOBACILLUS RHAMNOSUS GG 1 EACH CAP.SPRINK GT SCH (08:14)
[2023-05-26] MEDS: CHOLECALCIFEROL 1,000 UNIT TABLET (VIT D3) GT SCH (08:14)
[2023-05-26] MEDS: DOCUSATE SODIUM 100 MG CAPSULE PO SCH (08:14)
[2023-05-26] MEDS: MULTIVIT W/MINERALS 1 TAB TABLET GT SCH (08:14)
[2023-05-26] MEDS: DOXYCYCLINE 100 MG in IV D5W 100 ML IV SCH ×2 (08:14→21:30)
[2023-05-26] MEDS: LEVETIRACETAM SOL (5 ML) 100 MG/ML UDC GT SCH ×2 (08:14→21:28)
[2023-05-26] MEDS: CHLORHEXIDINE GLUCONATE 15 ML UDC MM SCH (08:14)
[2023-05-26] MEDS: PRIMIDONE 250 MG TABLET GT SCH ×3 (08:15→17:44)
[2023-05-26] MEDS: ASPIRIN 81 MG TAB.CHEW GT SCH (08:16)
[2023-05-26] MEDS: PROPRANOLOL HCL 10 MG TABLET GT SCH ×2 (08:24→17:44)
[2023-05-26] MEDS: MUPIROCIN OINT 2% 22 GM TUBE NS SCH ×2 (08:31→17:38)
[2023-05-26] MEDS: POLYVINYL ALCOHOL 15 ML BOTTLE EACHEYE SCH ×4 (08:31→21:29)
[2023-05-26] MEDS: SILVER SULFADIAZINE CREAM 25 GM TUBE TP SCH ×2 (08:32→21:29)
[2023-05-26 12:00] VITALS: BP 109/52; TEMP 99.4; O2SAT 100
[2023-05-26 16:00] VITALS: BP 106/54; TEMP 98.4; O2SAT 100
[2023-05-26 16:08] LABS: CALCIUM, SERUM 7.9 mg/dL (8.5-10.1); CREATININE 0.3 mg/dL (0.6-1.3); POTASSIUM 4.1 mmol/L (3.5-5.1)
[2023-05-26] MEDS: JEVITY 1.2 CAL 1,000 ML BOTTLE GT PRN (17:37)
[2023-05-26] MEDS: PROSOURCE / PROSTAT (PYXIS) 30 ML UDC GT SCH (18:05)
[2023-05-26] MEDS: DOCUSATE SODIUM 250 MG CAPSULE PO SCH (18:06)
[2023-05-26] MEDS: ASCORBIC ACID 500 MG TABLET GT SCH (18:06)
[2023-05-26] MEDS: FUROSEMIDE 20 MG TABLET GT SCH (18:06)
[2023-05-26 20:00] VITALS: BP 100/59; TEMP 99; O2SAT 100
[2023-05-26] MEDS: ATORVASTATIN 40 MG TABLET GT SCH (21:31)
[2023-05-26] MEDS: FLUOXETINE HCL 20 MG CAPSULE GT SCH (21:31)
[2023-05-26] MEDS: SENNOSIDES 8.6 MG TABLET GT SCH (21:31)
[2023-05-26] MEDS: ZOLPIDEM TARTRATE 5 MG TABLET GT SCH (21:31)
[2023-05-27] VITALS (9 sets, daily range): BP systolic 100–134; BP diastolic 50–65; TEMP 97.7–99.4; O2SAT 100
[2023-05-27] MEDS: HYDROCODONE/APAP 5/325MG TABLET GT PRN (04:35)
[2023-05-27 06:45] LABS: BASOPHILS # (AUTO) 0.1 K/uL (0.0-0.2); BASOPHILS % (AUTO) 0.4 % (0.0-2.0); EOSINOPHILS # (AUTO) 0.2 K/uL (0.0-0.7); EOSINOPHILS % (AUTO) 0.7 % (0.0-6.0); HEMATOCRIT 28 % (39-51); HEMOGLOBIN 7.9 g/dL (13.5-17.5); LYMPHOCYTES # (AUTO) 0.7 K/uL (0.8-4.8); LYMPHOCYTES % (AUTO) 2.6 % (20.0-44.0); MEAN CORPUSCULAR HEMOGLOBIN 29 PG (26.0-33.0); MEAN CORPUSCULAR HGB CONC 28 g/dl (31.0-36.0); MEAN CORPUSCULAR VOLUME 102 fL (80-96); MONOCYTES # (AUTO) 0.6 K/uL (0.1-1.30); MONOCYTES % (AUTO) 2.3 % (2.0-12.0); NEUTROPHILS # (AUTO) 25.9 K/uL (1.8-8.9); PLATELET COUNT (AUTO) 373 K/uL (150-450); RED BLOOD CELL COUNT(AUTO) 2.77 MIL/uL (4.5-6.0); RED CELL DISTRIBUTION WIDTH 20.7 % (11.5-15.0); WHITE BLOOD COUNT (AUTO) 27.5 K/uL (4.3-11.0)
[2023-05-27 07:35] LABS: CALCIUM, SERUM 7.9 mg/dL (8.5-10.1); CREATININE 0.4 mg/dL (0.6-1.3); POTASSIUM 4.5 mmol/L (3.5-5.1)
[2023-05-27] MEDS: LEVALBUTEROL HCL NEB 1.25 MG/0.5 ML VIAL.NEB IH SCH ×3 (07:50→23:56)
[2023-05-27] MEDS: CHLORHEXIDINE GLUCONATE 15 ML UDC MM SCH (10:05)
[2023-05-27] MEDS: LEVETIRACETAM SOL (5 ML) 100 MG/ML UDC GT SCH ×2 (10:05→21:15)
[2023-05-27] MEDS: LACTOBACILLUS RHAMNOSUS GG 1 EACH CAP.SPRINK GT SCH (10:06)
[2023-05-27] MEDS: MULTIVIT W/MINERALS 1 TAB TABLET GT SCH (10:06)
[2023-05-27] MEDS: dexaMETHasone SOD PHOSPHATE 10 MG/ML VIAL IV SCH (10:06)
[2023-05-27] MEDS: CHOLECALCIFEROL 1,000 UNIT TABLET (VIT D3) GT SCH (10:06)
[2023-05-27] MEDS: ASPIRIN 81 MG TAB.CHEW GT SCH (10:06)
[2023-05-27] MEDS: PRIMIDONE 250 MG TABLET GT SCH ×3 (10:06→17:41)
[2023-05-27] MEDS: PROPRANOLOL HCL 10 MG TABLET GT SCH ×2 (10:07→17:41)
[2023-05-27] MEDS: DOXYCYCLINE HYCLATE (100 MG) 100 MG TABLET GT SCH ×2 (10:07→21:16)
[2023-05-27] MEDS: POLYVINYL ALCOHOL 15 ML BOTTLE EACHEYE SCH ×4 (10:08→21:15)
[2023-05-27] MEDS: SILVER SULFADIAZINE CREAM 25 GM TUBE TP SCH ×2 (10:08→21:14)
[2023-05-27] MEDS: MUPIROCIN OINT 2% 22 GM TUBE NS SCH ×2 (10:09→17:40)
[2023-05-27] MEDS: DOCUSATE SODIUM LIQ 100 MG/10 ML UDC GT SCH ×2 (10:25→17:41)
[2023-05-27] MEDS: JEVITY 1.2 CAL 1,000 ML BOTTLE GT PRN (12:29)
[2023-05-27] MEDS: FUROSEMIDE 20 MG TABLET GT SCH (17:41)
[2023-05-27] MEDS: PROSOURCE / PROSTAT (PYXIS) 30 ML UDC GT SCH (17:42)
[2023-05-27] MEDS: ASCORBIC ACID 500 MG TABLET GT SCH (17:42)
[2023-05-27] MEDS: SENNOSIDES 8.6 MG TABLET GT SCH (21:15)
[2023-05-27] MEDS: FLUOXETINE HCL 20 MG CAPSULE GT SCH (21:15)
[2023-05-27] MEDS: ATORVASTATIN 40 MG TABLET GT SCH (21:16)
[2023-05-27] MEDS: ZOLPIDEM TARTRATE 5 MG TABLET GT SCH (21:16)
[2023-05-28] VITALS (11 sets, daily range): BP systolic 95–117; BP diastolic 45–63; TEMP 98–100.2; O2SAT 100
[2023-05-28] MEDS: JEVITY 1.2 CAL 1,000 ML BOTTLE GT PRN ×2 (05:27→21:52)
[2023-05-28 05:59] LABS: CALCIUM, SERUM 8.3 mg/dL (8.5-10.1); CREATININE 0.4 mg/dL (0.6-1.3); POTASSIUM 4.3 mmol/L (3.5-5.1)
[2023-05-28] MEDS: LEVALBUTEROL HCL NEB 1.25 MG/0.5 ML VIAL.NEB IH SCH ×3 (08:00→23:57)
[2023-05-28] MEDS: PROPRANOLOL HCL 10 MG TABLET GT SCH (08:48)
[2023-05-28] MEDS: CHOLECALCIFEROL 1,000 UNIT TABLET (VIT D3) GT SCH (08:54)
[2023-05-28] MEDS: LEVETIRACETAM SOL (5 ML) 100 MG/ML UDC GT SCH ×2 (08:54→21:07)
[2023-05-28] MEDS: DOXYCYCLINE HYCLATE (100 MG) 100 MG TABLET GT SCH ×2 (08:54→21:08)
[2023-05-28] MEDS: CHLORHEXIDINE GLUCONATE 15 ML UDC MM SCH (08:54)
[2023-05-28] MEDS: DOCUSATE SODIUM LIQ 100 MG/10 ML UDC GT SCH ×2 (08:54→17:03)
[2023-05-28] MEDS: LACTOBACILLUS RHAMNOSUS GG 1 EACH CAP.SPRINK GT SCH (08:55)
[2023-05-28] MEDS: MULTIVIT W/MINERALS 1 TAB TABLET GT SCH (08:55)
[2023-05-28] MEDS: ASPIRIN 81 MG TAB.CHEW GT SCH (08:55)
[2023-05-28] MEDS: PRIMIDONE 250 MG TABLET GT SCH ×3 (08:55→17:03)
[2023-05-28] MEDS ORDERED: IV NS 0.9% 500 ML IV ONE (09:00)
[2023-05-28] MEDS ORDERED: dexaMETHasone SOD PHOSPHATE 10 MG/ML VIAL IV SCH (09:00)
[2023-05-28 09:07] LABS: BASOPHILS % (AUTO) 0.3 % (0.0-2.0); EOSINOPHILS # (AUTO) 0.2 K/uL (0.0-0.7); EOSINOPHILS % (AUTO) 1.6 % (0.0-6.0); HEMATOCRIT 21 % (39-51); LYMPHOCYTES # (AUTO) 1.3 K/uL (0.8-4.8); LYMPHOCYTES % (AUTO) 12.7 % (20.0-44.0); MEAN CORPUSCULAR HEMOGLOBIN 24 PG (26.0-33.0); MEAN CORPUSCULAR HGB CONC 32 g/dl (31.0-36.0); MEAN CORPUSCULAR VOLUME 76 fL (80-96); MONOCYTES # (AUTO) 0.8 K/uL (0.1-1.30); MONOCYTES % (AUTO) 8.5 % (2.0-12.0); NEUTROPHILS # (AUTO) 7.6 K/uL (1.8-8.9); NEUTROPHILS % (AUTO) 76.9 % (43.0-81.0); PLATELET COUNT (AUTO) 521 K/uL (150-450); RED BLOOD CELL COUNT(AUTO) 2.78 MIL/uL (4.5-6.0); RED CELL DISTRIBUTION WIDTH 17.3 % (11.5-15.0); WHITE BLOOD COUNT (AUTO) 9.9 K/uL (4.3-11.0)
[2023-05-28 09:10] LABS: HEMOGLOBIN 6.7 g/dL (13.5-17.5)
[2023-05-28] MEDS: SILVER SULFADIAZINE CREAM 25 GM TUBE TP SCH ×2 (09:33→21:08)
[2023-05-28] MEDS: POLYVINYL ALCOHOL 15 ML BOTTLE EACHEYE SCH ×4 (09:33→21:08)
[2023-05-28] MEDS: MUPIROCIN OINT 2% 22 GM TUBE NS SCH ×2 (09:33→16:28)
[2023-05-28 12:01] LABS: ANISOCYTOSIS 1+; BASOPHILS % (MANUAL) 0 % (0.0-2.0); EOSINOPHILS % (MANUAL) 3 % (0-4); LYMPHOCYTES % (MANUAL) 14 % (16-48); MONOCYTES % (MANUAL) 9 % (0-11.0); NEUTROPHILS % (MANUAL) 74 (42-76); PLATELET ESTIMATE ADEQUATE
[2023-05-28 16:10] LABS: HEMOGLOBIN 7.1 g/dL (13.5-17.5)
[2023-05-28] MEDS: FUROSEMIDE 20 MG TABLET GT SCH (17:02)
[2023-05-28] MEDS: ASCORBIC ACID 500 MG TABLET GT SCH (17:03)
[2023-05-28] MEDS: PROSOURCE / PROSTAT (PYXIS) 30 ML UDC GT SCH (17:04)
[2023-05-28] MEDS: ATORVASTATIN 40 MG TABLET GT SCH (21:07)
[2023-05-28] MEDS: ZOLPIDEM TARTRATE 5 MG TABLET GT SCH (21:08)
[2023-05-28] MEDS: FLUOXETINE HCL 20 MG CAPSULE GT SCH (21:08)
[2023-05-28] MEDS: SENNOSIDES 8.6 MG TABLET GT SCH (21:08)
[2023-05-28] MEDS: ACETAMINOPHEN ES 500 MG TABLET GT PRN (21:46)
[2023-05-29] VITALS (10 sets, daily range): BP systolic 108–124; BP diastolic 54–68; TEMP 98–99.5; O2SAT 100
[2023-05-29] MEDS ORDERED: FUROSEMIDE 20 MG/2 ML VIAL IV PRN (04:00)
[2023-05-29 05:53] LABS: BASOPHILS % (AUTO) 0.2 % (0.0-2.0); EOSINOPHILS # (AUTO) 0.2 K/uL (0.0-0.7); EOSINOPHILS % (AUTO) 3.2 % (0.0-6.0); HEMATOCRIT 26 % (39-51); HEMOGLOBIN 8.4 g/dL (13.5-17.5); LYMPHOCYTES % (AUTO) 13.6 % (20.0-44.0); MEAN CORPUSCULAR HEMOGLOBIN 26 PG (26.0-33.0); MEAN CORPUSCULAR HGB CONC 33 g/dl (31.0-36.0); MEAN CORPUSCULAR VOLUME 78 fL (80-96); MONOCYTES # (AUTO) 0.7 K/uL (0.1-1.30); MONOCYTES % (AUTO) 8.7 % (2.0-12.0); NEUTROPHILS # (AUTO) 5.7 K/uL (1.8-8.9); NEUTROPHILS % (AUTO) 74.3 % (43.0-81.0); PLATELET COUNT (AUTO) 433 K/uL (150-450); RED BLOOD CELL COUNT(AUTO) 3.25 MIL/uL (4.5-6.0); RED CELL DISTRIBUTION WIDTH 18.3 % (11.5-15.0); WHITE BLOOD COUNT (AUTO) 7.7 K/uL (4.3-11.0)
[2023-05-29 06:13] LABS: BILIRUBIN,TOTAL 0.2 mg/dL (0.2-1.0); CALCIUM, SERUM 7.9 mg/dL (8.5-10.1); CREATININE 0.4 mg/dL (0.6-1.3); POTASSIUM 3.9 mmol/L (3.5-5.1)
[2023-05-29 06:38] LABS: ALBUMIN 1.4 g/dL (3.4-5.0)
[2023-05-29] MEDS: CHLORHEXIDINE GLUCONATE 15 ML UDC MM SCH (08:04)
[2023-05-29] MEDS: DOCUSATE SODIUM LIQ 100 MG/10 ML UDC GT SCH ×2 (08:04→17:42)
[2023-05-29] MEDS: DOXYCYCLINE HYCLATE (100 MG) 100 MG TABLET GT SCH ×2 (08:04→21:49)
[2023-05-29] MEDS: PRIMIDONE 250 MG TABLET GT SCH ×3 (08:04→16:25)
[2023-05-29] MEDS: LEVETIRACETAM SOL (5 ML) 100 MG/ML UDC GT SCH ×2 (08:04→21:49)
[2023-05-29] MEDS: LACTOBACILLUS RHAMNOSUS GG 1 EACH CAP.SPRINK GT SCH (08:05)
[2023-05-29] MEDS: MULTIVIT W/MINERALS 1 TAB TABLET GT SCH (08:05)
[2023-05-29] MEDS: ASPIRIN 81 MG TAB.CHEW GT SCH (08:05)
[2023-05-29] MEDS: CHOLECALCIFEROL 1,000 UNIT TABLET (VIT D3) GT SCH (08:05)
[2023-05-29] MEDS: MUPIROCIN OINT 2% 22 GM TUBE NS SCH ×2 (08:07→16:25)
[2023-05-29] MEDS: SILVER SULFADIAZINE CREAM 25 GM TUBE TP SCH ×2 (08:07→21:49)
[2023-05-29] MEDS: LEVALBUTEROL HCL NEB 1.25 MG/0.5 ML VIAL.NEB IH SCH ×2 (08:07→15:45)
[2023-05-29] MEDS: POLYVINYL ALCOHOL 15 ML BOTTLE EACHEYE SCH ×4 (08:07→21:49)
[2023-05-29] MEDS ORDERED: predniSONE 20 MG TABLET PO SCH (09:00)
[2023-05-29] MEDS: JEVITY 1.2 CAL 1,000 ML BOTTLE GT PRN (10:38)
[2023-05-29 12:11] LABS: OCCULT BLOOD STOOL NEGATIVE (NEGATIVE)
[2023-05-29] MEDS: FUROSEMIDE 20 MG TABLET GT SCH (17:42)
[2023-05-29] MEDS: PROSOURCE / PROSTAT (PYXIS) 30 ML UDC GT SCH (17:42)
[2023-05-29] MEDS: ASCORBIC ACID 500 MG TABLET GT SCH (17:42)
[2023-05-29] MEDS: SENNOSIDES 8.6 MG TABLET GT SCH (21:50)
[2023-05-29] MEDS: ATORVASTATIN 40 MG TABLET GT SCH (21:50)
[2023-05-29] MEDS: ZOLPIDEM TARTRATE 5 MG TABLET GT SCH (21:50)
[2023-05-29] MEDS: FLUOXETINE HCL 20 MG CAPSULE GT SCH (21:50)
[2023-05-30] VITALS: BP 106/50; TEMP 98.2; O2SAT 100
[2023-05-30] MEDS: LEVALBUTEROL HCL NEB 1.25 MG/0.5 ML VIAL.NEB IH SCH ×3 (01:06→15:36)
[2023-05-30 04:00] VITALS: BP 107/51; TEMP 98.3; O2SAT 100
[2023-05-30] MEDS: JEVITY 1.2 CAL 1,000 ML BOTTLE GT PRN ×2 (05:56→17:47)
[2023-05-30 07:08] LABS: BASOPHILS % (AUTO) 0.3 % (0.0-2.0); EOSINOPHILS # (AUTO) 0.5 K/uL (0.0-0.7); EOSINOPHILS % (AUTO) 5.5 % (0.0-6.0); HEMATOCRIT 27 % (39-51); HEMOGLOBIN 8.8 g/dL (13.5-17.5); LYMPHOCYTES # (AUTO) 1.2 K/uL (0.8-4.8); LYMPHOCYTES % (AUTO) 12.4 % (20.0-44.0); MEAN CORPUSCULAR HEMOGLOBIN 26 PG (26.0-33.0); MEAN CORPUSCULAR HGB CONC 33 g/dl (31.0-36.0); MEAN CORPUSCULAR VOLUME 79 fL (80-96); MONOCYTES # (AUTO) 0.8 K/uL (0.1-1.30); MONOCYTES % (AUTO) 8.2 % (2.0-12.0); NEUTROPHILS # (AUTO) 6.9 K/uL (1.8-8.9); NEUTROPHILS % (AUTO) 73.6 % (43.0-81.0); PLATELET COUNT (AUTO) 494 K/uL (150-450); RED BLOOD CELL COUNT(AUTO) 3.43 MIL/uL (4.5-6.0); RED CELL DISTRIBUTION WIDTH 19.1 % (11.5-15.0); WHITE BLOOD COUNT (AUTO) 9.3 K/uL (4.3-11.0)
[2023-05-30 07:31] LABS: ALBUMIN 1.5 g/dL (3.4-5.0); BILIRUBIN,TOTAL 0.2 mg/dL (0.2-1.0); CALCIUM, SERUM 8.1 mg/dL (8.5-10.1); CREATININE 0.4 mg/dL (0.6-1.3); TOTAL PROTEIN, SERUM 6.3 g/dL (6.4-8.2)
[2023-05-30 08:00] VITALS: BP 121/65; TEMP 98.7; O2SAT 100
[2023-05-30] MEDS: CHOLECALCIFEROL 1,000 UNIT TABLET (VIT D3) GT SCH (08:11)
[2023-05-30] MEDS: LEVETIRACETAM SOL (5 ML) 100 MG/ML UDC GT SCH ×2 (08:12→22:00)
[2023-05-30] MEDS: ASPIRIN 81 MG TAB.CHEW GT SCH (08:12)
[2023-05-30] MEDS: predniSONE 20 MG TABLET GT SCH (08:12)
[2023-05-30] MEDS: DOXYCYCLINE HYCLATE (100 MG) 100 MG TABLET GT SCH ×2 (08:12→22:00)
[2023-05-30] MEDS: CHLORHEXIDINE GLUCONATE 15 ML UDC MM SCH (08:12)
[2023-05-30] MEDS: LACTOBACILLUS RHAMNOSUS GG 1 EACH CAP.SPRINK GT SCH (08:12)
[2023-05-30] MEDS: DOCUSATE SODIUM LIQ 100 MG/10 ML UDC GT SCH ×2 (08:12→17:00)
[2023-05-30] MEDS: POLYVINYL ALCOHOL 15 ML BOTTLE EACHEYE SCH ×4 (08:13→22:00)
[2023-05-30] MEDS: PRIMIDONE 250 MG TABLET GT SCH ×3 (08:13→16:52)
[2023-05-30] MEDS: MULTIVIT W/MINERALS 1 TAB TABLET GT SCH (08:13)
[2023-05-30] MEDS: SILVER SULFADIAZINE CREAM 25 GM TUBE TP SCH ×2 (08:14→22:00)
[2023-05-30 12:00] VITALS: BP 126/66; TEMP 98.2; O2SAT 100
[2023-05-30 16:00] VITALS: BP 124/64; TEMP 98.5; O2SAT 100
[2023-05-30] MEDS: FUROSEMIDE 20 MG TABLET GT SCH (17:00)
[2023-05-30] MEDS: ASCORBIC ACID 500 MG TABLET GT SCH (17:00)
[2023-05-30] MEDS: PROSOURCE / PROSTAT (PYXIS) 30 ML UDC GT SCH (17:01)
[2023-05-30 20:00] VITALS: BP 114/55; TEMP 100.1; TEMP 212.2; O2SAT 100
[2023-05-30] MEDS: ACETAMINOPHEN ES 500 MG TABLET GT PRN (22:00)
[2023-05-30] MEDS: SENNOSIDES 8.6 MG TABLET GT SCH (22:50)
[2023-05-30] MEDS: ATORVASTATIN 40 MG TABLET GT SCH (22:50)
[2023-05-30] MEDS: ZOLPIDEM TARTRATE 5 MG TABLET GT SCH (22:50)
[2023-05-30] MEDS: FLUOXETINE HCL 20 MG CAPSULE GT SCH (22:50)
[2023-05-31] VITALS: BP 119/59; TEMP 99; O2SAT 100
[2023-05-31] MEDS: LEVALBUTEROL HCL NEB 1.25 MG/0.5 ML VIAL.NEB IH SCH ×3 (00:05→15:09)
[2023-05-31 04:00] VITALS: BP 130/70; TEMP 97.3; O2SAT 100
[2023-05-31 06:26] LABS: BASOPHILS % (AUTO) 0.3 % (0.0-2.0); EOSINOPHILS % (AUTO) 6.3 % (0.0-6.0); HEMATOCRIT 30 % (39-51); HEMOGLOBIN 9.3 g/dL (13.5-17.5); LYMPHOCYTES # (AUTO) 1.2 K/uL (0.8-4.8); LYMPHOCYTES % (AUTO) 7.7 % (20.0-44.0); MEAN CORPUSCULAR HEMOGLOBIN 25 PG (26.0-33.0); MEAN CORPUSCULAR HGB CONC 31 g/dl (31.0-36.0); MEAN CORPUSCULAR VOLUME 81 fL (80-96); MONOCYTES # (AUTO) 0.9 K/uL (0.1-1.30); MONOCYTES % (AUTO) 5.6 % (2.0-12.0); NEUTROPHILS # (AUTO) 12.3 K/uL (1.8-8.9); NEUTROPHILS % (AUTO) 80.1 % (43.0-81.0); PLATELET COUNT (AUTO) 480 K/uL (150-450); RED BLOOD CELL COUNT(AUTO) 3.68 MIL/uL (4.5-6.0); RED CELL DISTRIBUTION WIDTH 19.5 % (11.5-15.0); WHITE BLOOD COUNT (AUTO) 15.4 K/uL (4.3-11.0)
[2023-05-31 06:44] LABS: ALBUMIN 1.5 g/dL (3.4-5.0); BILIRUBIN,TOTAL 0.2 mg/dL (0.2-1.0); CALCIUM, SERUM 8.1 mg/dL (8.5-10.1); CREATININE 0.4 mg/dL (0.6-1.3); POTASSIUM 4.2 mmol/L (3.5-5.1); TOTAL PROTEIN, SERUM 6.4 g/dL (6.4-8.2)
[2023-05-31 08:00] VITALS: BP 106/54; TEMP 98.2; O2SAT 100
[2023-05-31] MEDS: POLYVINYL ALCOHOL 15 ML BOTTLE EACHEYE SCH ×4 (09:03→22:54)
[2023-05-31] MEDS: LEVETIRACETAM SOL (5 ML) 100 MG/ML UDC GT SCH ×2 (09:04→21:17)
[2023-05-31] MEDS: CHOLECALCIFEROL 1,000 UNIT TABLET (VIT D3) GT SCH (09:05)
[2023-05-31] MEDS: LACTOBACILLUS RHAMNOSUS GG 1 EACH CAP.SPRINK GT SCH (09:05)
[2023-05-31] MEDS: DOXYCYCLINE HYCLATE (100 MG) 100 MG TABLET GT SCH (09:05)
[2023-05-31] MEDS: CHLORHEXIDINE GLUCONATE 15 ML UDC MM SCH (09:05)
[2023-05-31] MEDS: ASPIRIN 81 MG TAB.CHEW GT SCH (09:05)
[2023-05-31] MEDS: DOCUSATE SODIUM LIQ 100 MG/10 ML UDC GT SCH ×2 (09:05→17:52)
[2023-05-31] MEDS: MULTIVIT W/MINERALS 1 TAB TABLET GT SCH (09:06)
[2023-05-31] MEDS: PRIMIDONE 250 MG TABLET GT SCH ×3 (09:06→17:51)
[2023-05-31] MEDS: SILVER SULFADIAZINE CREAM 25 GM TUBE TP SCH ×2 (09:11→22:56)
[2023-05-31] MEDS: predniSONE 20 MG TABLET GT SCH (09:11)
[2023-05-31 12:00] VITALS: BP 105/57; TEMP 98.2; O2SAT 100
[2023-05-31] MEDS: JEVITY 1.2 CAL 1,000 ML BOTTLE GT PRN (14:02)
[2023-05-31] MEDS: PROSOURCE / PROSTAT (PYXIS) 30 ML UDC GT SCH ×2 (14:03→17:00)
[2023-05-31 16:00] VITALS: BP 101/55; TEMP 98; O2SAT 100
[2023-05-31] MEDS: FUROSEMIDE 20 MG TABLET GT SCH (17:52)
[2023-05-31] MEDS: ASCORBIC ACID 500 MG TABLET GT SCH (17:52)
[2023-05-31 20:00] VITALS: BP 140/73; TEMP 98.2; O2SAT 98
[2023-05-31] MEDS ORDERED: VANCOMYCIN 1.25 GM in IV D5W 250 ML IV ONE (21:00)
[2023-05-31] MEDS ORDERED: MEROPENEM 500 MG in IV NS 0.9% 50 ML IV SCH (21:00)
[2023-05-31] MEDS ORDERED: VANCOMYCIN 1.25 GM in IV D5W 250 ML IV SCH (21:00)
[2023-05-31] MEDS: FLUOXETINE HCL 20 MG CAPSULE GT SCH (21:17)
[2023-05-31] MEDS: SENNOSIDES 8.6 MG TABLET GT SCH (21:17)
[2023-05-31] MEDS: ZOLPIDEM TARTRATE 5 MG TABLET GT SCH (21:18)
[2023-05-31] MEDS: ATORVASTATIN 40 MG TABLET GT SCH (21:18)
[2023-05-31] MEDS: MEROPENEM 1 G in IV NS 0.9% 100 ML IV SCH (22:57)
[2023-06-01] VITALS: BP 122/50; TEMP 98.3; O2SAT 100
[2023-06-01] MEDS: LEVALBUTEROL HCL NEB 1.25 MG/0.5 ML VIAL.NEB IH SCH ×3 (00:08→22:46)
[2023-06-01 04:00] VITALS: BP 118/53; TEMP 99.2; O2SAT 100
[2023-06-01] MEDS: MEROPENEM 1 G in IV NS 0.9% 100 ML IV SCH ×3 (05:30→20:36)
[2023-06-01 06:08] LABS: BASOPHILS # (AUTO) 0.1 K/uL (0.0-0.2); BASOPHILS % (AUTO) 0.4 % (0.0-2.0); EOSINOPHILS # (AUTO) 0.7 K/uL (0.0-0.7); EOSINOPHILS % (AUTO) 4.9 % (0.0-6.0); HEMATOCRIT 29 % (39-51); HEMOGLOBIN 9.2 g/dL (13.5-17.5); LYMPHOCYTES # (AUTO) 0.9 K/uL (0.8-4.8); LYMPHOCYTES % (AUTO) 6.5 % (20.0-44.0); MEAN CORPUSCULAR HEMOGLOBIN 26 PG (26.0-33.0); MEAN CORPUSCULAR HGB CONC 32 g/dl (31.0-36.0); MEAN CORPUSCULAR VOLUME 80 fL (80-96); MONOCYTES # (AUTO) 1.1 K/uL (0.1-1.30); MONOCYTES % (AUTO) 7.6 % (2.0-12.0); NEUTROPHILS # (AUTO) 11.3 K/uL (1.8-8.9); NEUTROPHILS % (AUTO) 80.6 % (43.0-81.0); PLATELET COUNT (AUTO) 492 K/uL (150-450); RED BLOOD CELL COUNT(AUTO) 3.58 MIL/uL (4.5-6.0); RED CELL DISTRIBUTION WIDTH 19.5 % (11.5-15.0)
[2023-06-01] MEDS: VANCOMYCIN 1 GM in IV D5W 250ml IV SCH ×3 (06:17→20:53)
[2023-06-01 06:23] LABS: ALBUMIN 1.5 g/dL (3.4-5.0); BILIRUBIN,TOTAL 0.3 mg/dL (0.2-1.0); CALCIUM, SERUM 8.2 mg/dL (8.5-10.1); CREATININE 0.4 mg/dL (0.6-1.3); TOTAL PROTEIN, SERUM 6.3 g/dL (6.4-8.2)
[2023-06-01 06:28] LABS: APPEARANCE,URINE TURBID (CLEAR); BILIRUBIN,URINE 1+ (NEGATIVE); BLOOD, URINE 3+ Ery/uL (NEGATIVE); COLOR,URINE DARK YELLOW (YELLOW); KETONES,URINE TRACE mg/dL (NEGATIVE); LEUKOCYTE ESTERASE ,URINE 2+ (NEGATIVE); NITRITE, URINE NEGATIVE (NEGATIVE); PROTEIN,URINE 2+ mg/dl (NEGATIVE); UGLUCOSE NEGATIVE (NEGATIVE)
[2023-06-01 06:29] LABS: PH,URINE >9.0 (5.0-8.0)
[2023-06-01 06:34] LABS: ADD URINE CULTURE YES; BACTERIA,URINE Rare /HPF (None Seen); SQUAMOUS EPITHELIAL CELL,UR Few /HPF (None Seen)
[2023-06-01 08:01] VITALS: BP 119/56; TEMP 99.2; O2SAT 100
[2023-06-01] MEDS: PROSOURCE / PROSTAT (PYXIS) 30 ML UDC GT SCH ×2 (08:35→16:47)
[2023-06-01] MEDS: predniSONE 20 MG TABLET GT SCH (08:35)
[2023-06-01] MEDS: MULTIVIT W/MINERALS 1 TAB TABLET GT SCH (08:35)
[2023-06-01] MEDS: CHOLECALCIFEROL 1,000 UNIT TABLET (VIT D3) GT SCH (08:35)
[2023-06-01] MEDS: ASPIRIN 81 MG TAB.CHEW GT SCH (08:35)
[2023-06-01] MEDS: LACTOBACILLUS RHAMNOSUS GG 1 EACH CAP.SPRINK GT SCH (08:35)
[2023-06-01] MEDS: CHLORHEXIDINE GLUCONATE 15 ML UDC MM SCH (08:36)
[2023-06-01] MEDS: DOCUSATE SODIUM LIQ 100 MG/10 ML UDC GT SCH ×2 (08:36→17:42)
[2023-06-01] MEDS: LEVETIRACETAM SOL (5 ML) 100 MG/ML UDC GT SCH ×2 (08:38→21:27)
[2023-06-01] MEDS: ENOXAPARIN SODIUM 80 MG/0.8 ML DISP.SYRIN SQ SCH ×2 (08:41→21:28)
[2023-06-01] MEDS: POLYVINYL ALCOHOL 15 ML BOTTLE EACHEYE SCH ×4 (09:39→21:30)
[2023-06-01] MEDS: SILVER SULFADIAZINE CREAM 25 GM TUBE TP SCH ×2 (09:39→21:31)
[2023-06-01] MEDS: PRIMIDONE 250 MG TABLET GT SCH ×3 (10:02→16:47)
[2023-06-01 12:00] VITALS: BP 119/56; TEMP 98.4; O2SAT 100
[2023-06-01] MEDS: JEVITY 1.2 CAL 1,000 ML BOTTLE GT PRN (14:17)
[2023-06-01 16:00] VITALS: BP 108/81; TEMP 98.2; O2SAT 100
[2023-06-01] MEDS: FUROSEMIDE 20 MG TABLET GT SCH (17:42)
[2023-06-01] MEDS: ASCORBIC ACID 500 MG TABLET GT SCH (17:42)
[2023-06-01 20:00] VITALS: BP 105/54; TEMP 98.2; O2SAT 100
[2023-06-01] MEDS: ATORVASTATIN 40 MG TABLET GT SCH (21:27)
[2023-06-01] MEDS: ZOLPIDEM TARTRATE 5 MG TABLET GT SCH (21:27)
[2023-06-01] MEDS: FLUOXETINE HCL 20 MG CAPSULE GT SCH (21:27)
[2023-06-01] MEDS: SENNOSIDES 8.6 MG TABLET GT SCH (21:27)
[2023-06-02] VITALS: BP 117/59; TEMP 99; O2SAT 100
[2023-06-02 04:00] VITALS: BP 136/66; TEMP 98.9; O2SAT 100
[2023-06-02] MEDS: JEVITY 1.2 CAL 1,000 ML BOTTLE GT PRN (04:08)
[2023-06-02] MEDS: MEROPENEM 1 G in IV NS 0.9% 100 ML IV SCH ×4 (05:00→21:45)
[2023-06-02] MEDS: VANCOMYCIN 1 GM in IV D5W 250ml IV SCH ×4 (05:00→13:11)
[2023-06-02] MEDS: LEVALBUTEROL HCL NEB 1.25 MG/0.5 ML VIAL.NEB IH SCH ×3 (07:35→23:30)
[2023-06-02 08:00] VITALS: BP 106/60; TEMP 98.2; O2SAT 100
[2023-06-02] MEDS: SILVER SULFADIAZINE CREAM 25 GM TUBE TP SCH ×2 (09:00→21:47)
[2023-06-02] MEDS: POLYVINYL ALCOHOL 15 ML BOTTLE EACHEYE SCH ×4 (09:00→21:46)
[2023-06-02] MEDS: ENOXAPARIN SODIUM 80 MG/0.8 ML DISP.SYRIN SQ SCH ×2 (10:04→21:42)
[2023-06-02] MEDS: CHLORHEXIDINE GLUCONATE 15 ML UDC MM SCH (10:04)
[2023-06-02] MEDS: LEVETIRACETAM SOL (5 ML) 100 MG/ML UDC GT SCH ×2 (10:04→21:40)
[2023-06-02] MEDS: DOCUSATE SODIUM LIQ 100 MG/10 ML UDC GT SCH ×2 (10:04→17:48)
[2023-06-02] MEDS: PROSOURCE / PROSTAT (PYXIS) 30 ML UDC GT SCH ×2 (10:04→17:47)
[2023-06-02] MEDS: CHOLECALCIFEROL 1,000 UNIT TABLET (VIT D3) GT SCH (10:05)
[2023-06-02] MEDS: ASPIRIN 81 MG TAB.CHEW GT SCH (10:05)
[2023-06-02] MEDS: PRIMIDONE 250 MG TABLET GT SCH ×3 (10:05→17:48)
[2023-06-02] MEDS: predniSONE 20 MG TABLET GT SCH (10:05)
[2023-06-02] MEDS: LACTOBACILLUS RHAMNOSUS GG 1 EACH CAP.SPRINK GT SCH (10:05)
[2023-06-02] MEDS: MULTIVIT W/MINERALS 1 TAB TABLET GT SCH (10:05)
[2023-06-02 12:00] VITALS: BP 102/60; TEMP 98.6; O2SAT 100
[2023-06-02 12:47] LABS: HEMOGLOBIN 8.7 g/dL (13.5-17.5)
[2023-06-02 12:48] LABS: BASOPHILS % (AUTO) 0.4 % (0.0-2.0); EOSINOPHILS # (AUTO) 0.5 K/uL (0.0-0.7); EOSINOPHILS % (AUTO) 4.9 % (0.0-6.0); HEMATOCRIT 27 % (39-51); HEMOGLOBIN 8.7 g/dL (13.5-17.5); LYMPHOCYTES # (AUTO) 0.6 K/uL (0.8-4.8); LYMPHOCYTES % (AUTO) 5.5 % (20.0-44.0); MEAN CORPUSCULAR HEMOGLOBIN 26 PG (26.0-33.0); MEAN CORPUSCULAR HGB CONC 33 g/dl (31.0-36.0); MEAN CORPUSCULAR VOLUME 79 fL (80-96); MONOCYTES # (AUTO) 0.4 K/uL (0.1-1.30); MONOCYTES % (AUTO) 3.7 % (2.0-12.0); NEUTROPHILS # (AUTO) 9.2 K/uL (1.8-8.9); NEUTROPHILS % (AUTO) 85.5 % (43.0-81.0); PLATELET COUNT (AUTO) 449 K/uL (150-450); RED BLOOD CELL COUNT(AUTO) 3.35 MIL/uL (4.5-6.0); RED CELL DISTRIBUTION WIDTH 20.2 % (11.5-15.0); WHITE BLOOD COUNT (AUTO) 10.7 K/uL (4.3-11.0)
[2023-06-02 13:46] LABS: BILIRUBIN,TOTAL 0.3 mg/dL (0.2-1.0); CALCIUM, SERUM 7.9 mg/dL (8.5-10.1); CREATININE 0.5 mg/dL (0.6-1.3); POTASSIUM 4.3 mmol/L (3.5-5.1); TOTAL PROTEIN, SERUM 6.1 g/dL (6.4-8.2)
[2023-06-02 14:00] LABS: ALBUMIN 1.4 g/dL (3.4-5.0)
[2023-06-02 16:00] VITALS: BP 106/61; TEMP 98.4; O2SAT 100
[2023-06-02] MEDS: FUROSEMIDE 20 MG TABLET GT SCH (17:49)
[2023-06-02] MEDS: ASCORBIC ACID 500 MG TABLET GT SCH (17:49)
[2023-06-02 20:00] VITALS: BP 126/67; TEMP 98.4; O2SAT 99
[2023-06-02] MEDS: ATORVASTATIN 40 MG TABLET GT SCH (21:43)
[2023-06-02] MEDS: ACETAMINOPHEN ES 500 MG TABLET GT PRN (21:43)
[2023-06-02] MEDS: FLUOXETINE HCL 20 MG CAPSULE GT SCH (21:43)
[2023-06-02] MEDS: SENNOSIDES 8.6 MG TABLET GT SCH (21:43)
[2023-06-02] MEDS: ZOLPIDEM TARTRATE 5 MG TABLET GT SCH (21:44)
[2023-06-02 23:19] LABS: HEMOGLOBIN 7.6 g/dL (13.5-17.5)
[2023-06-03] MEDS: VANCOMYCIN 1 GM in IV D5W 250ml IV SCH ×2 (01:25→12:05)
[2023-06-03 04:00] VITALS: BP 127/61; TEMP 97.4; O2SAT 99
[2023-06-03] MEDS: MEROPENEM 1 G in IV NS 0.9% 100 ML IV SCH ×3 (04:31→20:42)
[2023-06-03 06:00] LABS: BASOPHILS % (AUTO) 0.4 % (0.0-2.0); EOSINOPHILS # (AUTO) 0.7 K/uL (0.0-0.7); EOSINOPHILS % (AUTO) 8.1 % (0.0-6.0); HEMATOCRIT 27 % (39-51); HEMOGLOBIN 8.8 g/dL (13.5-17.5); LYMPHOCYTES # (AUTO) 0.9 K/uL (0.8-4.8); LYMPHOCYTES % (AUTO) 10.6 % (20.0-44.0); MEAN CORPUSCULAR HEMOGLOBIN 26 PG (26.0-33.0); MEAN CORPUSCULAR HGB CONC 32 g/dl (31.0-36.0); MEAN CORPUSCULAR VOLUME 79 fL (80-96); MONOCYTES # (AUTO) 0.7 K/uL (0.1-1.30); MONOCYTES % (AUTO) 8.1 % (2.0-12.0); NEUTROPHILS # (AUTO) 6.2 K/uL (1.8-8.9); NEUTROPHILS % (AUTO) 72.8 % (43.0-81.0); PLATELET COUNT (AUTO) 438 K/uL (150-450); RED BLOOD CELL COUNT(AUTO) 3.45 MIL/uL (4.5-6.0); RED CELL DISTRIBUTION WIDTH 20.1 % (11.5-15.0); WHITE BLOOD COUNT (AUTO) 8.5 K/uL (4.3-11.0)
[2023-06-03 06:16] LABS: BILIRUBIN,TOTAL 0.3 mg/dL (0.2-1.0); CALCIUM, SERUM 8.1 mg/dL (8.5-10.1); CREATININE 0.5 mg/dL (0.6-1.3); POTASSIUM 3.8 mmol/L (3.5-5.1); TOTAL PROTEIN, SERUM 6.1 g/dL (6.4-8.2)
[2023-06-03 06:18] LABS: ALBUMIN 1.4 g/dL (3.4-5.0)
[2023-06-03 08:00] VITALS: BP 115/55; TEMP 98; O2SAT 94
[2023-06-03] MEDS: PROSOURCE / PROSTAT (PYXIS) 30 ML UDC GT SCH ×4 (08:07→17:02)
[2023-06-03] MEDS: CHLORHEXIDINE GLUCONATE 15 ML UDC MM SCH (08:24)
[2023-06-03] MEDS: PRIMIDONE 250 MG TABLET GT SCH ×3 (08:24→17:02)
[2023-06-03] MEDS: MULTIVIT W/MINERALS 1 TAB TABLET GT SCH (08:24)
[2023-06-03] MEDS: CHOLECALCIFEROL 1,000 UNIT TABLET (VIT D3) GT SCH (08:25)
[2023-06-03] MEDS: DOCUSATE SODIUM LIQ 100 MG/10 ML UDC GT SCH ×2 (08:25→17:03)
[2023-06-03] MEDS: LACTOBACILLUS RHAMNOSUS GG 1 EACH CAP.SPRINK GT SCH (08:25)
[2023-06-03] MEDS: ASPIRIN 81 MG TAB.CHEW GT SCH (08:25)
[2023-06-03] MEDS: predniSONE 20 MG TABLET PO SCH (08:25)
[2023-06-03] MEDS: SILVER SULFADIAZINE CREAM 25 GM TUBE TP SCH ×2 (08:25→20:38)
[2023-06-03] MEDS: LEVETIRACETAM SOL (5 ML) 100 MG/ML UDC GT SCH ×2 (08:25→20:33)
[2023-06-03] MEDS: POLYVINYL ALCOHOL 15 ML BOTTLE EACHEYE SCH ×4 (08:26→20:37)
[2023-06-03] MEDS: ENOXAPARIN SODIUM 80 MG/0.8 ML DISP.SYRIN SQ SCH ×2 (08:29→20:35)
[2023-06-03] MEDS: LEVALBUTEROL HCL NEB 1.25 MG/0.5 ML VIAL.NEB IH SCH ×3 (08:37→23:37)
[2023-06-03 12:00] VITALS: BP 102/52; TEMP 98; O2SAT 94
[2023-06-03 16:00] VITALS: BP 123/58; TEMP 98; O2SAT 96
[2023-06-03] MEDS: JEVITY 1.2 CAL 1,000 ML BOTTLE GT PRN (17:01)
[2023-06-03] MEDS: ASCORBIC ACID 500 MG TABLET GT SCH (17:03)
[2023-06-03] MEDS: FUROSEMIDE 20 MG TABLET GT SCH (17:03)
[2023-06-03 20:00] VITALS: BP 118/58; TEMP 98.5; O2SAT 100
[2023-06-03] MEDS: ATORVASTATIN 40 MG TABLET GT SCH (21:40)
[2023-06-03] MEDS: SENNOSIDES 8.6 MG TABLET GT SCH (21:41)
[2023-06-03] MEDS: FLUOXETINE HCL 20 MG CAPSULE GT SCH (21:41)
[2023-06-03] MEDS: ZOLPIDEM TARTRATE 5 MG TABLET GT SCH (21:41)
[2023-06-04] VITALS: BP 109/58; TEMP 98.9; O2SAT 100
[2023-06-04] MEDS: VANCOMYCIN 1 GM in IV D5W 250ml IV SCH ×2 (01:40→13:19)
[2023-06-04 04:00] VITALS: BP 125/60; TEMP 98.5; O2SAT 100
[2023-06-04 05:47] LABS: BASOPHILS # (AUTO) 0.1 K/uL (0.0-0.2); BASOPHILS % (AUTO) 0.6 % (0.0-2.0); EOSINOPHILS # (AUTO) 0.9 K/uL (0.0-0.7); HEMATOCRIT 28 % (39-51); HEMOGLOBIN 8.8 g/dL (13.5-17.5); LYMPHOCYTES # (AUTO) 0.9 K/uL (0.8-4.8); LYMPHOCYTES % (AUTO) 9.5 % (20.0-44.0); MEAN CORPUSCULAR HEMOGLOBIN 26 PG (26.0-33.0); MEAN CORPUSCULAR HGB CONC 32 g/dl (31.0-36.0); MEAN CORPUSCULAR VOLUME 81 fL (80-96); MONOCYTES # (AUTO) 0.8 K/uL (0.1-1.30); MONOCYTES % (AUTO) 8.3 % (2.0-12.0); NEUTROPHILS # (AUTO) 6.9 K/uL (1.8-8.9); NEUTROPHILS % (AUTO) 72.6 % (43.0-81.0); PLATELET COUNT (AUTO) 404 K/uL (150-450); RED BLOOD CELL COUNT(AUTO) 3.47 MIL/uL (4.5-6.0); RED CELL DISTRIBUTION WIDTH 20.2 % (11.5-15.0); WHITE BLOOD COUNT (AUTO) 9.4 K/uL (4.3-11.0)
[2023-06-04 06:06] LABS: BILIRUBIN,TOTAL 0.2 mg/dL (0.2-1.0); CALCIUM, SERUM 8.1 mg/dL (8.5-10.1); CREATININE 0.4 mg/dL (0.6-1.3); POTASSIUM 4.2 mmol/L (3.5-5.1); TOTAL PROTEIN, SERUM 6.2 g/dL (6.4-8.2)
[2023-06-04 06:09] LABS: ALBUMIN 1.4 g/dL (3.4-5.0)
[2023-06-04] MEDS: MEROPENEM 1 G in IV NS 0.9% 100 ML IV SCH ×3 (06:35→20:41)
[2023-06-04] MEDS: JEVITY 1.2 CAL 1,000 ML BOTTLE GT PRN ×2 (07:03→21:40)
[2023-06-04] MEDS: LEVALBUTEROL HCL NEB 1.25 MG/0.5 ML VIAL.NEB IH SCH ×3 (07:29→23:44)
[2023-06-04 08:00] VITALS: BP 107/48; TEMP 98.6; O2SAT 100
[2023-06-04] MEDS: SILVER SULFADIAZINE CREAM 25 GM TUBE TP SCH ×2 (08:03→21:04)
[2023-06-04] MEDS: PROSOURCE / PROSTAT (PYXIS) 30 ML UDC GT SCH ×3 (08:03→16:11)
[2023-06-04] MEDS: POLYVINYL ALCOHOL 15 ML BOTTLE EACHEYE SCH ×4 (08:03→21:04)
[2023-06-04] MEDS: LACTOBACILLUS RHAMNOSUS GG 1 EACH CAP.SPRINK GT SCH (08:09)
[2023-06-04] MEDS: CHOLECALCIFEROL 1,000 UNIT TABLET (VIT D3) GT SCH (08:09)
[2023-06-04] MEDS: DOCUSATE SODIUM LIQ 100 MG/10 ML UDC GT SCH ×2 (08:09→17:05)
[2023-06-04] MEDS: MULTIVIT W/MINERALS 1 TAB TABLET GT SCH (08:09)
[2023-06-04] MEDS: LEVETIRACETAM SOL (5 ML) 100 MG/ML UDC GT SCH ×2 (08:09→20:39)
[2023-06-04] MEDS: PRIMIDONE 250 MG TABLET GT SCH ×3 (08:09→16:49)
[2023-06-04] MEDS: ASPIRIN 81 MG TAB.CHEW GT SCH (08:09)
[2023-06-04] MEDS: predniSONE 20 MG TABLET PO SCH (08:09)
[2023-06-04] MEDS: CHLORHEXIDINE GLUCONATE 15 ML UDC MM SCH (08:09)
[2023-06-04] MEDS: ENOXAPARIN SODIUM 80 MG/0.8 ML DISP.SYRIN SQ SCH ×2 (08:13→20:39)
[2023-06-04 12:00] VITALS: BP 122/56; TEMP 98; O2SAT 100
[2023-06-04 16:00] VITALS: BP 127/66; TEMP 98.6; O2SAT 100
[2023-06-04] MEDS: ASCORBIC ACID 500 MG TABLET GT SCH (17:01)
[2023-06-04] MEDS: FUROSEMIDE 20 MG TABLET GT SCH (17:01)
[2023-06-04 20:00] VITALS: BP 125/64; TEMP 97.4; O2SAT 100
[2023-06-04] MEDS: SENNOSIDES 8.6 MG TABLET GT SCH (21:08)
[2023-06-04] MEDS: ZOLPIDEM TARTRATE 5 MG TABLET GT SCH (21:09)
[2023-06-04] MEDS: FLUOXETINE HCL 20 MG CAPSULE GT SCH (21:09)
[2023-06-04] MEDS: ATORVASTATIN 40 MG TABLET GT SCH (21:09)
[2023-06-05] VITALS: BP 111/56; TEMP 97.5; O2SAT 100
[2023-06-05] MEDS: VANCOMYCIN 1 GM in IV D5W 250ml IV SCH ×2 (00:01→13:23)
[2023-06-05] MEDS: HYDROCODONE/APAP 5/325MG TABLET GT PRN ×2 (00:52→16:02)
[2023-06-05 04:00] VITALS: BP 129/73; TEMP 98.2; O2SAT 100
[2023-06-05] MEDS: MEROPENEM 1 G in IV NS 0.9% 100 ML IV SCH ×2 (04:38→13:23)
[2023-06-05 06:46] LABS: BASOPHILS % (AUTO) 0.2 % (0.0-2.0); EOSINOPHILS # (AUTO) 0.7 K/uL (0.0-0.7); EOSINOPHILS % (AUTO) 6.1 % (0.0-6.0); HEMATOCRIT 29 % (39-51); HEMOGLOBIN 9.4 g/dL (13.5-17.5); LYMPHOCYTES % (AUTO) 9.3 % (20.0-44.0); MEAN CORPUSCULAR HEMOGLOBIN 26 PG (26.0-33.0); MEAN CORPUSCULAR HGB CONC 32 g/dl (31.0-36.0); MEAN CORPUSCULAR VOLUME 80 fL (80-96); MONOCYTES % (AUTO) 9.2 % (2.0-12.0); NEUTROPHILS # (AUTO) 8.2 K/uL (1.8-8.9); NEUTROPHILS % (AUTO) 75.2 % (43.0-81.0); PLATELET COUNT (AUTO) 453 K/uL (150-450); RED BLOOD CELL COUNT(AUTO) 3.66 MIL/uL (4.5-6.0); RED CELL DISTRIBUTION WIDTH 20.6 % (11.5-15.0)
[2023-06-05 07:12] LABS: CREATININE 0.5 mg/dL (0.6-1.3); POTASSIUM 4.4 mmol/L (3.5-5.1)
[2023-06-05] MEDS: LEVALBUTEROL HCL NEB 1.25 MG/0.5 ML VIAL.NEB IH SCH ×2 (07:13→15:11)
[2023-06-05 07:35] LABS: BILIRUBIN,TOTAL 0.2 mg/dL (0.2-1.0)
[2023-06-05 07:43] LABS: CALCIUM, SERUM 1.3 mg/dL (8.5-10.1)
[2023-06-05 07:44] LABS: ALBUMIN 1.4 g/dL (3.4-5.0)
[2023-06-05 08:00] VITALS: BP 114/58; TEMP 98.1; O2SAT 100
[2023-06-05] MEDS: ASPIRIN 81 MG TAB.CHEW GT SCH (08:41)
[2023-06-05] MEDS: LACTOBACILLUS RHAMNOSUS GG 1 EACH CAP.SPRINK GT SCH (08:41)
[2023-06-05] MEDS: PRIMIDONE 250 MG TABLET GT SCH ×3 (08:41→16:02)
[2023-06-05] MEDS: LEVETIRACETAM SOL (5 ML) 100 MG/ML UDC GT SCH (08:41)
[2023-06-05] MEDS: CHOLECALCIFEROL 1,000 UNIT TABLET (VIT D3) GT SCH (08:41)
[2023-06-05] MEDS: MULTIVIT W/MINERALS 1 TAB TABLET GT SCH (08:42)
[2023-06-05] MEDS: CHLORHEXIDINE GLUCONATE 15 ML UDC MM SCH (08:42)
[2023-06-05] MEDS: DOCUSATE SODIUM LIQ 100 MG/10 ML UDC GT SCH ×2 (08:42→18:34)
[2023-06-05] MEDS: predniSONE 20 MG TABLET PO SCH (08:42)
[2023-06-05] MEDS: PROSOURCE / PROSTAT (PYXIS) 30 ML UDC GT SCH ×3 (08:43→16:03)
[2023-06-05] MEDS: ENOXAPARIN SODIUM 80 MG/0.8 ML DISP.SYRIN SQ SCH (08:44)
[2023-06-05] MEDS: SILVER SULFADIAZINE CREAM 25 GM TUBE TP SCH (08:46)
[2023-06-05] MEDS: POLYVINYL ALCOHOL 15 ML BOTTLE EACHEYE SCH ×3 (08:46→16:03)
[2023-06-05 12:00] VITALS: BP 117/62; TEMP 98.2; O2SAT 100
[2023-06-05] MEDS: JEVITY 1.2 CAL 1,000 ML BOTTLE GT PRN (13:51)
[2023-06-05 16:00] VITALS: BP 129/71; TEMP 98.1; O2SAT 100
[2023-06-05] MEDS: FUROSEMIDE 20 MG TABLET GT SCH (18:35)
[2023-06-05] MEDS: ASCORBIC ACID 500 MG TABLET GT SCH (18:35)
[2023-06-07] MEDS ORDERED: predniSONE 10 MG TABLET PO SCH (09:00)
[2023-06-10] MEDS ORDERED: predniSONE 5 MG TABLET PO SCH (09:00)
== END 2023-06-05 19:45 | DRG 720 ==
LOC: ER 14:52 → TELE1 20:17
PROVIDERS: ADMIT Nurse Practitioner Acute Care
PROC: 5A1955Z Respiratory Ventilation, Greater than 96 Consecutive Hours (ICD-10-PCS; principal; 2023-05-22)
PROC: 05H533Z Insertion of Infusion Device into Right Subclavian Vein, Percutaneous Approach (ICD-10-PCS; 2023-05-22)
PROC: B546ZZA Ultrasonography of Right Subclavian Vein, Guidance (ICD-10-PCS; 2023-05-22)
PROC: 30233N1 Transfusion of Nonautologous Red Blood Cells into Peripheral Vein, Percutaneous Approach (ICD-10-PCS; 2023-05-28)
PROC: 06HM33Z Insertion of Infusion Device into Right Femoral Vein, Percutaneous Approach (ICD-10-PCS; 2023-06-02)
PROC: B54BZZA Ultrasonography of Right Lower Extremity Veins, Guidance (ICD-10-PCS; 2023-06-02)
DX: A41.9 Sepsis, unspecified organism (principal); J96.20 Acute and chronic respiratory failure, unspecified whether with hypoxia or hypercapnia; G93.41 Metabolic encephalopathy; D84.9 Immunodeficiency, unspecified; E44.0 Moderate protein-calorie malnutrition; R64 Cachexia; I82.412 Acute embolism and thrombosis of left femoral vein; D68.69 Other thrombophilia; E88.09 Other disorders of plasma-protein metabolism, not elsewhere classified; Z99.11 Dependence on respirator [ventilator] status; L12.0 Bullous pemphigoid; I50.32 Chronic diastolic (congestive) heart failure; I11.0 Hypertensive heart disease with heart failure; R79.89 Other specified abnormal findings of blood chemistry; G40.909 Epilepsy, unspecified, not intractable, without status epilepticus; E78.5 Hyperlipidemia, unspecified; R13.10 Dysphagia, unspecified; Z88.0 Allergy status to penicillin; Z93.1 Gastrostomy status; Z79.82 Long term (current) use of aspirin; Z86.73 Personal history of transient ischemic attack (TIA), and cerebral infarction without residual deficits; Z68.21 Body mass index [BMI] 21.0-21.9, adult; M24.522 Contracture, left elbow; M24.521 Contracture, right elbow; M24.574 Contracture, right foot; M24.575 Contracture, left foot; L03.818 Cellulitis of other sites; D50.9 Iron deficiency anemia, unspecified; Z74.01 Bed confinement status; T38.0X5A Adverse effect of glucocorticoids and synthetic analogues, initial encounter; J44.9 Chronic obstructive pulmonary disease, unspecified; Z85.71 Personal history of Hodgkin lymphoma; Z93.0 Tracheostomy status
CPT/HCPCS: 31720; 36410; 36415; 71045-TC; 80048-TC; 80053-TC; 80076-TC; 80202-TC; 81001; 82272-TC; 83605-TC; 83735-TC; 84100-TC; 85025-TC; 85027-TC; 85652-TC; 85730-TC; 86850-TC; 87040-TC; 87081-TC; 87086-TC; 93970-TC; 94002-TC; 94003-TC; 94640-TC; 94760-TC; 94762-TC; 94799-TC; 99082-TC; A4217; A4223; A4623; A6253; A6403; A7526; G0378; J1100; J1650; J1940; J1953; J2185; J2920; J3370; J3490; J7030; J7040; J7050; J7060; J7070; P9016